=== PATIENT | male | born 1985 | race American Indian/Alaskan Native ===

== ENCOUNTER 2017-05-05 10:37 | Emergency (ER) | payer SELFPAY ==
--- NOTE | 2017-05-05 14:40 | Emergency Department Report ---
HPI - General Chief Complaint: Wound/Laceration Time Seen by Provider: 05/05/17 13:28 - HPI HPI: he is a 31-year-old male presents complaining of insect bite in his right ankle. He states he noticed part of his ankle was swollen and had some puslike discharge. Patient states he does not recall seeing insect or the blood that bit him.. Patient is able to walk appropriately with no problems. He denies fevers/chills/vomiting/abdominal pain chest pain or any other problems ". ED Past Medical Hx - Past Medical History Previous Medical History?: No - Surgical History Past Surgical History?: No - Social History Smoking Status: Current Every Day Smoker Substance Use Type: Alcohol - Medications Home Medications: Home Medications Medication Instructions Recorded Confirmed Last Taken Type Hydrocodone Bit/Acetaminophen 1 each PO Q6HR PRN #20 tablet 06/07/13 Unknown Rx [Lortab 5-500 Tablet] Cephalexin [Keflex] 500 mg PO BID #10 capsule 05/05/17 Unknown Rx Ibuprofen [Motrin 800 MG tab] 800 mg PO TID PRN #60 tablet 05/05/17 Unknown Rx Neomycin/Bacitracin/Polymyxinb 1 applic TP TID #1 tube 05/05/17 Unknown Rx [Triple Antibiotic Ointment] ED Review of Systems ROS: Stated complaint: RIGHT ANKLE SWOLLEN Other details as noted in HPI Constitutional: denies: chills, fever Eyes: denies: eye pain, eye discharge, vision change ENT: denies: ear pain, throat pain Respiratory: denies: cough, shortness of breath, wheezing Cardiovascular: denies: chest pain, palpitations Endocrine: no symptoms reported Gastrointestinal: denies: abdominal pain, nausea, diarrhea Genitourinary: denies: urgency, dysuria Musculoskeletal: denies: back pain, joint swelling, arthralgia Skin: pruritus. denies: rash, lesions Neurological: denies: headache, weakness, numbness, paresthesias, confusion Psychiatric: denies: anxiety, depression Hematological/Lymphatic: denies: easy bleeding, easy bruising Physical Exam - Physical Exam Vital Signs: Vital Signs 05/05/17 11:07 Temperature 97.7 F Pulse Rate 60 Respiratory 18 Rate Blood Pressure 107/74 O2 Sat by Pulse 97 Oximetry Physical Exam: GENERAL: Alert and oriented x3, no apparent distress, Normal Gait, atraumatic. HEAD: Head is normocephalic and a-traumatic. LUNGS: Symetrical with respiration, , CTAB. HEART: S1, S2 present, regular rate and rhythm without murmur, EXTREMITIES/MUSCULOSKELETAL: No cyanosis, clubbing, rash, lesions or edema. Full ROM bilaterally. LE Pulses 2+ bilaterally. LE 5+ strength bilaterally, ankle joints intact bilaterally. Medial aspect of the ankle showed 4-5 cm area of cellulitis with pus healing wound appearance consistent with some type of insect bite. Pedal pulses are present, full range of motion, nontender to palpation SKIN: Warm and dry, No other lesions, No ulceration or induration present. ED Course Vital Signs 05/05/17 11:07 Temperature 97.7 F Pulse Rate 60 Respiratory 18 Rate Blood Pressure 107/74 O2 Sat by Pulse 97 Oximetry ED Medical Decision Making - Medical Decision Making 31-year-old male presents with insect bite. Discussed with the patient to apply topical antibiotic cream as discussed. Discussed the patient is symptoms worsen to return to ED otherwise follow-up with her primary care physician Ankle looks nontoxic, nonseptic, has full radial movement. Vital signs are normal patient is in no acute distress. Critical care attestation.: If time is entered above; I have spent that time in minutes in the direct care of this critically ill patient, excluding procedure time. ED Disposition Clinical Impression: Insect bite of ankle, right Qualifiers: Encounter type: initial encounter Qualified Code(s): S90.561A - Insect bite ( nonvenomous), right ankle, initial encounter Disposition: DC- TO HOME OR SELFCARE Is pt being admited?: No Does the pt Need Aspirin: No Condition: Stable Instructions: Cellulitis (ED), Insect Bite or Sting (ED) Prescriptions: Cephalexin [Keflex] 500 mg PO BID #10 capsule Ibuprofen [Motrin 800 MG tab] 800 mg PO TID PRN #60 tablet PRN Reason: Pain Neomycin/Bacitracin/Polymyxinb [Triple Antibiotic Ointment] 1 applic TP TID #1 tube Referrals: PRIMARY CARE, [Primary Care Provider] - 3-5 Days [facility] [Outside] - 3-5 Days [facility] [place] [Outside] - 3-5 Days [facility] [Outside] - 3-5 Days Forms: Accompanied Note, Work/School Release Form(ED) Time of Disposition: 14:40
[2017-05-05 15:02] VITALS: BP 126/84
== END 2017-05-05 15:02 | disposition home or self-care (01) ==
LOC: ED 10:37
DX: S90.561A Insect bite (nonvenomous), right ankle, initial encounter (principal); F17.200 Nicotine dependence, unspecified, uncomplicated; W57.XXXA Bitten or stung by nonvenomous insect and other nonvenomous arthropods, initial encounter; Y93.89 Activity, other specified; Y92.89 Other specified places as the place of occurrence of the external cause; Y99.8 Other external cause status
CPT/HCPCS: 99282

== ENCOUNTER 2018-09-03 18:56 | Inpatient (IN) | payer MEDICARE, OTHER ==
[2018-09-03] MEDS ORDERED: NACL 0.9% 1000 ML IV ONE (19:34)
--- NOTE | 2018-09-03 19:34 | Emergency Department Report ---
Blank Doc - Documentation Documentation: This is a 32-year-old male that presents with URI symptoms. Stated has history of PNA 2 weeks ago. Stated symptoms has subsided but not resolved. Tachycardia and Febrile in the ED. Code sepsis initiated. This initial assessment/diagnostic orders/clinical plan/treatment(s) is/are subject to change based on patient's health status, clinical progression and re- assessment by fellow clinical providers in the ED. Further treatment and workup at subsequent clinical providers discretion. Patient/guardians urged not to elope from the ED as their condition may be serious if not clinically assessed and managed. Initial orders include: 1- Patient sent to MAIN ED for further evaluation and treatment 2- labs 3- cxr
[2018-09-03 20:33] LABS: Mean Corpuscular HGB Conc 36 % (32-34); Mean Corpuscular Volume 85 fl (84-94); Red Blood Count 4.91 M/mm3 (3.65-5.03); Red Cell Distribution Width 13.2 % (13.2-15.2)
[2018-09-03 20:34] LABS: Hemoglobin 15.1 gm/dl (11.8-15.2)
[2018-09-03 20:35] LABS: Hematocrit 41.6 % (35.5-45.6)
[2018-09-03 20:38] LABS: Alanine Aminotransferase 74 units/L (7-56); Albumin 3.4 g/dL (3.9-5); BUN/Creatinine Ratio 13; Blood Urea Nitrogen 14 mg/dL (9-20); Calcium 8.5 mg/dL (8.4-10.2); Hemolysis Index 74
[2018-09-03 21:18] LABS: Basophils % (Manual) 0 % (0.0-1.8); Eosinophils % (Manual) 0 % (0.0-4.3); Total Cells Counted 100
[2018-09-03 21:19] LABS: Anisocytosis 1+; Platelet Estimate Appears Decreased; Poikilocytosis 1+; Target Cells Few
[2018-09-03 21:28] LABS: Platelet Count 79 K/mm3 (140-440)
[2018-09-03] MEDS ORDERED: LEVAQUIN 750MG/150ML 750 MG/150 ML BAG IV ONE (21:41)
[2018-09-03] MEDS ORDERED: NACL 0.9% 1000 ML 2,000 ML IV ONE (21:41)
[2018-09-03] MEDS ORDERED: TYLENOL PO ONE (21:41)
--- NOTE | 2018-09-03 21:44 | Emergency Department Report ---
ED General Adult HPI - General Chief complaint: Upper Respiratory Infection Stated complaint: CHEST PAIN/FLU LIKE SYM/VOMIT Time Seen by Provider: 09/03/18 19:31 Source: patient, RN notes reviewed Mode of arrival: Ambulatory Limitations: No Limitations - History of Present Illness Initial comments: He does not have a primary care doctor and denies chronic medical conditions that he is aware of. Contrary to what is documented in triage note, patient was not hospitalized at [facility] 2 weeks ago, but rather presented for cough and fever, and was presumptively diagnosed with community-acquired pneumonia, and reports being discharged with an antibiotic that started with a "B". He thinks it is Bactrim but he is not certain. He reports compliance with antibiotics, but still complains of cough, malaise, fatigue, and generalized weakness. He does not have pain at this time. He reports no chest pain for over 2 weeks. He denies DVT, pulmonary embolus risk factors. On review of systems, the patient does indicate that he has had male partners in the past, but reports using condoms, and reports being tested for HIV a few weeks ago. He denies headache, neck pain, chest pain, abdominal pain, urinary symptoms, he does endorse cough and he endorses some generalized weakness. Intermittent symptoms, do not radiate anywhere, and there do not appear to have exacerbating or relieving factors -: Gradual, week(s) Severity scale (0 -10): 4 Consistency: intermittent Improves with: none Worsens with: none Associated Symptoms: cough, fever/chills, malaise, weakness - Related Data Previous Rx's Medication Instructions Recorded Last Taken Type Hydrocodone Bit/Acetaminophen 1 each PO Q6HR PRN #20 tablet 06/07/13 Unknown Rx [Lortab 5-500 Tablet] Cephalexin [Keflex] 500 mg PO BID #10 capsule 05/05/17 Unknown Rx Ibuprofen [Motrin 800 MG tab] 800 mg PO TID PRN #60 tablet 05/05/17 Unknown Rx Neomycin/Bacitracin/Polymyxinb 1 applic TP TID #1 tube 05/05/17 Unknown Rx [Triple Antibiotic Ointment] Allergies Allergy/AdvReac Type Severity Reaction Status Date / Time No Known Allergies Allergy Unverified 06/07/13 12:19 ED Review of Systems ROS: Stated complaint: CHEST PAIN/FLU LIKE SYM/VOMIT Other details as noted in HPI Constitutional: fever, malaise, weakness. denies: chills ENT: congestion Respiratory: cough Cardiovascular: denies: chest pain Gastrointestinal: denies: abdominal pain, nausea, vomiting Genitourinary: denies: urgency, dysuria Musculoskeletal: arthralgia Skin: denies: lesions Neurological: weakness Psychiatric: denies: anxiety ED Past Medical Hx - Past Medical History Previous Medical History?: Yes Additional medical history: Pneumonia - Surgical History Past Surgical History?: No - Social History Smoking Status: Former Smoker Substance Use Type: None - Medications Home Medications: Home Medications Medication Instructions Recorded Confirmed Last Taken Type Hydrocodone Bit/Acetaminophen 1 each PO Q6HR PRN #20 tablet 06/07/13 Unknown Rx [Lortab 5-500 Tablet] Cephalexin [Keflex] 500 mg PO BID #10 capsule 05/05/17 Unknown Rx Ibuprofen [Motrin 800 MG tab] 800 mg PO TID PRN #60 tablet 05/05/17 Unknown Rx Neomycin/Bacitracin/Polymyxinb 1 applic TP TID #1 tube 05/05/17 Unknown Rx [Triple Antibiotic Ointment] ED Physical Exam - General Limitations: No Limitations General appearance: alert, in no apparent distress - Head Head exam: Present: atraumatic, normocephalic - Eye Eye exam: Present: normal appearance, PERRL, EOMI. Absent: nystagmus - ENT ENT exam: Present: mucous membranes dry, normal external ear exam, other (leukoplakia, questionable thrush noted) - Neck Neck exam: Present: normal inspection, full ROM. Absent: tenderness, meningism us - Respiratory Respiratory exam: Present: rhonchi. Absent: respiratory distress - Cardiovascular Cardiovascular Exam: Present: regular rate, normal rhythm, normal heart sounds. Absent: bradycardia, tachycardia, irregular rhythm, systolic murmur, diastolic murmur, rubs, gallop - GI/Abdominal GI/Abdominal exam: Present: soft. Absent: distended, tenderness, guarding, rebound, rigid, pulsatile mass - Rectal Rectal exam: Present: deferred - Extremities Exam Extremities exam: Present: normal inspection, full ROM, other (2+ pulses noted in the bilateral upper, lower extremities. Compartments soft. No long bony tenderness. The pelvis is stable.). Absent: pedal edema, joint swelling, calf tenderness - Back Exam Back exam: Present: normal inspection, full ROM. Absent: tenderness, CVA tenderness (R), paraspinal tenderness, vertebral tenderness - Neurological Exam Neurological exam: Present: alert, oriented X3, CN II-XII intact, normal gait, other (Extraocular movements intact. Tongue midline. No facial droop. Facial sensation intact to light touch in the V1, V2, V3 distribution bilaterally. 5 and 5 strength in 4 extremities.. Sensation is intact to light touch in 4 extremities.). Absent: motor sensory deficit - Psychiatric Psychiatric exam: Present: normal affect, normal mood - Skin Skin exam: Present: warm, dry, intact, normal color. Absent: rash ED Course Vital Signs 09/03/18 09/03/18 09/03/18 19:08 19:30 22:00 Temperature 103 F H 103 F H Pulse Rate 97 H 92 H 80 Respiratory 16 16 23 Rate Blood Pressure 98/63 111/63 Blood Pressure 98/63 [Left] O2 Sat by Pulse 95 96 94 Oximetry 09/03/18 22:16 Temperature 102.8 F H Pulse Rate 91 H Respiratory 22 Rate Blood Pressure Blood Pressure 111/63 [Left] O2 Sat by Pulse 96 Oximetry - Reevaluation(s) Reevaluation #1: 09/03/18 22:24 Differential diagnosis, including but not limited to: Viremia, bacteremia, hepatitis, Legionella, acute HIV syndrome Assessment and plan: 32-year-old gentleman with acute febrile illness, hypon atremia, leukopenia, thrombocytopenia, nonspecific transaminitis, elevated lactic acid, borderline hypotension. Patient is febrile, although blood pressure is improving. I have strongly recommended admission to the hospital for monitoring, correction of sodium derangements, and further diagnostic workup/evaluation. The patient indicates that he is amenable to screening for HIV, syphilis, and he is also amenable to IV fluids and IV broad-spectrum antibiotics. The patient however indicates that he does not intend to stay overnight, and he indicates that he will sign out AGAINST MEDICAL ADVICE. The patient is alert and oriented 3, clinically sober, and free from distracting injury. Risks of leaving, including , disability, paralysis, loss of quality of life are discussed with the patient, who verbalized understanding in his own words. However, his workup in the ER resuscitation are still going on currently. Reevaluation #2: 09/03/18 23:36 I have reevaluated the patient. His laboratory studies are reviewed and appreciated. Patient reports he is amenable to hospitalization at this time. Blood pressure improved. HIV screen negative. Hepatitis C screen is reactive, although confirmatory test has not been sent thus far. The case is presented to the Hospital physician, Dr. Beasley, who accepted the patient to the Medical service. Patient has acute febrile illness, undifferentiated sepsis, with multiple laboratory abnormalities, including thrombocytopenia, leukopenia, transaminitis, hyponatremia, and requires further inpatient evaluation. ED Medical Decision Making - Lab Data Result diagrams: 09/03/18 19:44 09/03/18 19:44 Vital Signs 09/03/18 09/03/18 09/03/18 19:08 19:30 22:16 Temperature 103 F H 103 F H 102.8 F H Pulse Rate 97 H 92 H 91 H Respiratory 16 16 22 Rate Blood Pressure 98/63 Blood Pressure 98/63 111/63 [Left] O2 Sat by Pulse 95 96 96 Oximetry Lab Results 09/03/18 09/03/18 09/03/18 Range/Units 19:44 19:44 19:44 WBC 3.7 L (4.5-11.0) K/mm3 RBC 4.91 (3.65-5.03) M/mm3 Hgb 15.1 (11.8-15.2) gm/dl Hct 41.6 (35.5-45.6) % MCV 85 (84-94) fl MCH 31 (28-32) pg MCHC 36 H (32-34) % RDW 13.2 (13.2-15.2) % Plt Count 79 L (140-440) K/mm3 Lymph % (Auto) [employer] Add Manual Diff Complete Total Counted 100 Seg Neutrophils % [employer] Seg Neuts % (Manual) 51.0 (40.0-70.0) % Band Neutrophils % 0 % Lymphocytes % (Manual) 41.0 H (13.4-35.0) % Reactive Lymphs % (Man) 0 % Monocytes % (Manual) 8.0 H (0.0-7.3) % Eosinophils % (Manual) 0 (0.0-4.3) % Basophils % (Manual) 0 (0.0-1.8) % Metamyelocytes % 0 % Myelocytes % 0 % Promyelocytes % 0 % Blast Cells % 0 % Nucleated RBC % Not Reportable Seg Neutrophils # Man 1.9 (1.8-7.7) K/mm3 Band Neutrophils # 0.0 K/mm3 Lymphocytes # (Manual) 1.5 (1.2-5.4) K/mm3 Abs React Lymphs (Man) 0.0 K/mm3 Monocytes # (Manual) 0.3 (0.0-0.8) K/mm3 Eosinophils # (Manual) 0.0 (0.0-0.4) K/mm3 Basophils # (Manual) 0.0 (0.0-0.1) K/mm3 Metamyelocytes # 0.0 K/mm3 Myelocytes # 0.0 K/mm3 Promyelocytes # 0.0 K/mm3 Blast Cells # 0.0 K/mm3 WBC Morphology Not Reportable Hypersegmented Neuts Not Reportable Hyposegmented Neuts Not Reportable Hypogranular Neuts Not Reportable Smudge Cells Not Reportable Toxic Granulation Not Reportable Toxic Vacuolation Not Reportable Dohle Bodies Not Reportable Pelger-Huet Anomaly Not Reportable Rain Rods Not Reportable Platelet Estimate Appears decreased Clumped Platelets Not Reportable Plt Clumps, EDTA Not Reportable Large Platelets Not Reportable Giant Platelets Not Reportable Platelet Satelliting Not Reportable Plt Morphology Comment Not Reportable RBC Morphology Not Reportable Dimorphic RBCs Not Reportable Polychromasia Not Reportable Hypochromasia Not Reportable Poikilocytosis 1+ Anisocytosis 1+ Microcytosis Rare Macrocytosis Not Reportable Spherocytes Not Reportable Pappenheimer Bodies Not Reportable Sickle Cells Not Reportable Target Cells Few Tear Drop Cells Not Reportable Ovalocytes Not Reportable Helmet Cells Not Reportable [place] Bodies Not Reportable [place] Rings Not Reportable [place] Cells Not Reportable Bite Cells Not Reportable Crenated Cell Not Reportable Elliptocytes Not Reportable Acanthocytes (Spur) Not Reportable Rouleaux Not Reportable Hemoglobin C Crystals Not Reportable Schistocytes Not Reportable Malaria parasites Not Reportable Cain Bodies Not Reportable Hem Pathologist Commnt No Sodium 123 L (137-145) mmol/L Potassium 4.5 (3.6-5.0) mmol/L Chloride 83.9 L (98-107) mmol/L Carbon Dioxide 25 (22-30) mmol/L Anion Gap 19 mmol/L BUN 14 (9-20) mg/dL Creatinine 1.1 (0.8-1.5) mg/dL Estimated GFR > 60 ml/min BUN/Creatinine Ratio 13 % Glucose 104 H (75-100) mg/dL Lactic Acid 3.20 H* (0.7-2.0) mmol/L Calcium 8.5 (8.4-10.2) mg/dL Total Bilirubin 0.40 (0.1-1.2) mg/dL AST 219 H (5-40) units/L ALT 74 H (7-56) units/L Alkaline Phosphatase 67 (35-129) units/L Total Protein 6.9 (6.3-8.2) g/dL Albumin 3.4 L (3.9-5) g/dL Albumin/Globulin Ratio 1.0 % Urine Color (Yellow) Urine Turbidity (Clear) Urine pH (5.0-7.0) Ur Specific [place] (1.003-1.030) Urine Protein (Negative) mg/dL Urine Glucose (UA) (Negative) mg/dL Urine Ketones (Negative) mg/dL Urine Blood (Negative) Urine Nitrite (Negative) Urine Bilirubin (Negative) Urine Urobilinogen (<2.0) mg/dL Ur Leukocyte Esterase (Negative) Urine WBC (Auto) (0.0-6.0) /HPF Urine RBC (Auto) (0.0-6.0) /HPF Urine Mucus /HPF HIV 1&2 Antibody Rapid (Non React) HIV P24 Antigen (Non React) 09/03/18 09/03/18 09/03/18 Range/Units 20:57 21:46 21:51 WBC (4.5-11.0) K/mm3 RBC (3.65-5.03) M/mm3 Hgb (11.8-15.2) gm/dl Hct (35.5-45.6) % MCV (84-94) fl MCH (28-32) pg MCHC (32-34) % RDW (13.2-15.2) % Plt Count (140-440) K/mm3 Lymph % (Auto) Add Manual Diff Total Counted Seg Neutrophils % Seg Neuts % (Manual) (40.0-70.0) % Band Neutrophils % % Lymphocytes % (Manual) (13.4-35.0) % Reactive Lymphs % (Man) % Monocytes % (Manual) (0.0-7.3) % Eosinophils % (Manual) (0.0-4.3) % Basophils % (Manual) (0.0-1.8) % Metamyelocytes % % Myelocytes % % Promyelocytes % % Blast Cells % % Nucleated RBC % Seg Neutrophils # Man (1.8-7.7) K/mm3 Band Neutrophils # K/mm3 Lymphocytes # (Manual) (1.2-5.4) K/mm3 Abs React Lymphs (Man) K/mm3 Monocytes # (Manual) (0.0-0.8) K/mm3 Eosinophils # (Manual) (0.0-0.4) K/mm3 Basophils # (Manual) (0.0-0.1) K/mm3 Metamyelocytes # K/mm3 Myelocytes # K/mm3 Promyelocytes # K/mm3 Blast Cells # K/mm3 WBC Morphology Hypersegmented Neuts Hyposegmented Neuts Hypogranular Neuts Smudge Cells Toxic Granulation Toxic Vacuolation Dohle Bodies Pelger-Huet Anomaly Rain Rods Platelet Estimate Clumped Platelets Plt Clumps, EDTA Large Platelets Giant Platelets Platelet Satelliting Plt Morphology Comment RBC Morphology Dimorphic RBCs Polychromasia Hypochromasia Poikilocytosis Anisocytosis Microcytosis Macrocytosis Spherocytes Pappenheimer Bodies Sickle Cells Target Cells Tear Drop Cells Ovalocytes Helmet Cells [place] Bodies [place] Rings [place] Cells Bite Cells Crenated Cell Elliptocytes Acanthocytes (Spur) Rouleaux Hemoglobin C Crystals Schistocytes Malaria parasites Cain Bodies Hem Pathologist Commnt Sodium (137-145) mmol/L Potassium (3.6-5.0) mmol/L Chloride (98-107) mmol/L Carbon Dioxide (22-30) mmol/L Anion Gap mmol/L BUN (9-20) mg/dL Creatinine (0.8-1.5) mg/dL Estimated GFR ml/min BUN/Creatinine Ratio % Glucose (75-100) mg/dL Lactic Acid 3.50 H* (0.7-2.0) mmol/L Calcium (8.4-10.2) mg/dL Total Bilirubin (0.1-1.2) mg/dL AST (5-40) units/L ALT (7-56) units/L Alkaline Phosphatase (35-129) units/L Total Protein (6.3-8.2) g/dL Albumin (3.9-5) g/dL Albumin/Globulin Ratio % Urine Color Marlene (Yellow) Urine Turbidity Clear (Clear) Urine pH 6.0 (5.0-7.0) Ur Specific [place] 1.029 (1.003-1.030) Urine Protein >500 (Negative) mg/dL Urine Glucose (UA) Neg (Negative) mg/dL Urine Ketones Neg (Negative) mg/dL Urine Blood Mod (Negative) Urine Nitrite Neg (Negative) Urine Bilirubin Neg (Negative) Urine Urobilinogen < 2.0 (<2.0) mg/dL Ur Leukocyte Esterase Neg (Negative) Urine WBC (Auto) 4.0 (0.0-6.0) /HPF Urine RBC (Auto) < 1.0 (0.0-6.0) /HPF Urine Mucus Few /HPF HIV 1&2 Antibody Rapid Non react (Non React) HIV P24 Antigen Non react (Non React) Critical care attestation.: If time is entered above; I have spent that time in minutes in the direct care of this critically ill patient, excluding procedure time. ED Disposition Clinical Impression: Systemic inflammatory response syndrome (SIRS), Hyponatremia, Leukopenia, Thrombocytopenia, Transaminitis Disposition: 09 OP ADMIT IP TO THIS HOSP Is pt being admited?: Yes Condition: Good Referrals: COLLIN VILLAR MD [Primary Care Provider] - 3-5 Days
[2018-09-03 22:10] LABS: Bilirubin,Urine NEG (Negative); Blood,Urine MOD (Negative); Color,Urine Amber (Yellow); Mucus,Urine FEW /HPF; RBC,Urine < 1.0 /HPF (0.0-6.0); Urobilinogen,Urine < 2.0 mg/dL (<2.0)
[2018-09-03 22:14] LABS: Protein,Urine >500 mg/dL (Negative)
--- NOTE | 2018-09-03 22:21 | XRay Report ---
PROCEDURE: XR CHEST 1V AP TECHNIQUE: Chest radiograph single view. HISTORY: sepsis COMPARISONS: None . FINDINGS: Heart: Normal. Mediastinum/Vessels: Normal. Lungs/Pleural space: There are linear densities at the left lung base suggesting atelectasis or fibr osis. There are no acute infiltrates. There is no pleural effusion or pneumothorax.. Bony thorax: No acute osseous abnormality. Life support devices: None. IMPRESSION: No acute cardiopulmonary abnormality. This document is electronically signed by Jairon Mcfadden MD., September 03 2018 10:19:54 PM ET
[2018-09-03 22:32] LABS: Hepatitis B Surface Antigen Non-Reactive (Negative); Hepatitis C Virus Antibody Reactive (NonReactive)
--- NOTE | 2018-09-03 23:49 | History and Physical Report ---
History of Present Illness Date of examination: 09/03/18 History of present illness: 32 year old man with no medical history comes emergency room with complaints of chest pain that started 2 weeks ago. Pain is in the epigastric area which she described as someone standing on his chest, intermittent, unclear how long it lasts for, intensity 4/10, no radiation,, identify exacerbating or relieving factors, admits to fever chills, dry cough. He was seen at [facility] 2 weeks ago, diagnosed with pneumonia and took antibiotics for 10 days, he cannot recall the name of the antibiotic. He stated his symptoms improved slightly. Admits to decreased appetite, no weight loss, hemoptysis. He has a history of syphilis, state he was treated, +male partners, denies unprotected sex Review of systems Constitutional: no weight loss Ears, eyes, nose, mouth and throat: no nasal congestion, no nasal discharge, no sinus pressure, no vision change, no red eye. Neck: No neck pain or rigidity. Cardiovascular: no palpitations, +chest pain Respiratory: no cough, shortness of breath Gastrointestinal: no hematochezia, abdominal pain Genitourinary : no frequency , no hematuria Musculoskeletal: no joint swelling or muscle ache Integumentary: no rash, no pruritis Neurological: no parathesias, no focal weakness Endocrine: no cold or heat intolerance, no polyuria or polydipsia Hematologic/Lymphatic: no easy bruising, no easy bleeding, no gland swelling Allergic/Immunologic: no urticaria, no angioedema. PAST MEDICAL HISTORY: None PAST SURGICAL HISTORY: None SOCIAL HISTORY: Denies alcohol, drugs, tobacco FAMILY HISTORY: Hypertension Medications and Allergies Allergies Allergy/AdvReac Type Severity Reaction Status Date / Time No Known Allergies Allergy Unverified 06/07/13 12:19 Home Medications Medication Instructions Recorded Confirmed Last Taken Type Multivitamin Tab [Multiple Vitamin 1 each PO QDAY #30 tablet 09/16/18 Unknown Rx TAB (Theragran)] Sulfamethoxazole/Trimethoprim 1 each PO QDAY 30 Days #30 tablet 09/16/18 Unknown Rx [Bactrim DS TAB] Sulfamethoxazole/Trimethoprim 2 each PO TID 15 Days #90 tablet 09/16/18 Unknown Rx [Bactrim DS TAB] diphenhydrAMINE [Benadryl CAP] 25 mg PO Q6H PRN #60 capsule 09/16/18 Unknown Rx Exam - Physical Exam Narrative exam: General Apperance: The patient lying in bed, breathing comfortable HEENT: Normocephalic, atraumatic. Pupils equally round and reactive to light, EOMI, no sclericterus or JVD or thyromegaly or nodule. , no carotid bruit, mucous membranes moist, + exudate, no erythema Heart: S1-S2, regular is rhythm Lungs: Clear to auscultation bilaterally, breathing comfortable Abdomen: Positive bowel sounds, soft, nontender, nondistended, no organomegaly Extremities: No edema cyanosis clubbing Skin: no rash, nodule, warm and dry Neuro: cranial nerves 2-12 intact, speech is fluent, motor/sensory intact - Constitutional Vitals: Temp Pulse Resp BP Pulse Ox 100.2 F H 81 30 H 106/62 95 09/03/18 23:46 09/03/18 23:00 09/03/18 23:00 09/03/18 23:00 09/03/18 23:00 Results - Labs CBC & Chem 7: 09/16/18 00:29 09/16/18 10:01 Labs: Abnormal lab results 09/03/18 09/03/18 09/03/18 Range/Units 19:44 19:44 19:44 WBC 3.7 L (4.5-11.0) K/mm3 MCHC 36 H (32-34) % Plt Count 79 L (140-440) K/mm3 Lymphocytes % (Manual) 41.0 H (13.4-35.0) % Monocytes % (Manual) 8.0 H (0.0-7.3) % Sodium 123 L (137-145) mmol/L Chloride 83.9 L (98-107) mmol/L Glucose 104 H (75-100) mg/dL Lactic Acid 3.20 H* (0.7-2.0) mmol/L AST 219 H (5-40) units/L ALT 74 H (7-56) units/L Albumin 3.4 L (3.9-5) g/dL Hepatitis C Antibody (NonReactive) 09/03/18 09/03/18 Range/Units 20:57 21:46 WBC (4.5-11.0) K/mm3 MCHC (32-34) % Plt Count (140-440) K/mm3 Lymphocytes % (Manual) (13.4-35.0) % Monocytes % (Manual) (0.0-7.3) % Sodium (137-145) mmol/L Chloride (98-107) mmol/L Glucose (75-100) mg/dL Lactic Acid 3.50 H* (0.7-2.0) mmol/L AST (5-40) units/L ALT (7-56) units/L Albumin (3.9-5) g/dL Hepatitis C Antibody Reactive A (NonReactive) - Imaging and Cardiology Chest x-ray: report reviewed Assessment and Plan Assessment SIRS, suspect early HIV Chest pain Leukoplakia Leukopenia, thrombocytopenia hyponatremia Plan Start IV fluids, empiric Zosyn, fluconazole Obtain CAT scan of the chest, cardiac enzymes Consult infectious disease patient will need to have his HIV test repeated at a later date DVT prophylaxis
[2018-09-04] MEDS ORDERED: PERCOCET 5/325 PO PRN (00:10)
[2018-09-04] MEDS ORDERED: SODIUM CHLORIDE FLUSH SYRINGE 10 ML IV PRN (00:10)
[2018-09-04] MEDS ORDERED: DIFLUCAN PO ONE (00:29)
--- NOTE | 2018-09-04 02:25 | Cat Scan Report ---
PROCEDURE: CT ANGIO CHEST TECHNIQUE: Computerized tomographic angiography of the chest was performed after the IV injection of iodinated nonionic contrast including image processing. Images are reconstructed in the sagittal and coronal plane HISTORY: Chest pain COMPARISONS: None FINDINGS: There is no evidence of PE. The pulmonary arteries opacify normally. The heart appears normal. The thoracic aorta is nonaneurysmal and there is no evidence of dissection. There is mild bibasilar subsegmental atelectasis greater on the left than the right. Otherwise, The l ungs are clear. There is no evidence of pleural effusion. The bones are unremarkable. Images through the upper abdomen show diffuse fatty infiltration of the liver. The liver was not comp letely scanned. IMPRESSION: 1. No evidence of PE 2. Bibasilar subsegmental atelectasis greater on the left than the right 3. Diffuse fatty infiltration of the liver. The liver was not completely scanned. This document is electronically signed by Venita Tucker MD., September 04 2018 02:22:53 AM ET
[2018-09-04] MEDS: TYLENOL PO PRN ×2 (05:49→12:35)
[2018-09-04] MEDS: NACL 0.9% 1000 ML 1,000 ML IV SCH ×3 (05:50→18:56)
[2018-09-04] MEDS: DIFLUCAN PO SCH (09:50)
--- NOTE | 2018-09-04 09:52 | Progress Note ---
Assessment and Plan Assessment and plan: 32-year-old man who presents to the hospital with fever. He was treated at [facility] 2 weeks ago for community acquired pneumonia and was treated with antibiotics, the patient reports compliance of those antibiotics CT amgio chest; no evidence of PE diffuse fatty infiltration of the liver Labs, UA is negative for UTI, hepatitis serology is only positive for positive hep C antibody, rapid HIV is negative, rapid influenza is negative Diagnoses Fever Transaminitis Severe hyponatremia SIRS Hep C Hypochloremia Leukopenia thrombocytopenia acute HIV viral syndrome Tobacco abuse Plan - ID consult is pending, hold abx for now -Obtain HIV RNA quantitative, and also obtain CD4 counts -Obtain hep C viral RNA, quantitative -Hypotonic IVF, Nephrology consult, hyponatremia/hypochloremia likely due to hypovolemia -Patient was counseled greater than 10 minutes about tobacco cessation -DVT ppx- chemical History Interval history: Review of systems Constitutional: Patient is having high fevers and malaise CVS: No chest pain, no orthopnea, no dyspnea on exertion, no pedal edema GI: No abdominal pain, no diarrhea, no vomiting, no constipation Respiratory: No shortness of breath, no wheezing, no coughing Hospitalist Physical - Physical exam Narrative exam: General.: Appears well, no distress, nontoxic HEENT: Moist mucous membranes, extraocular muscles intact, no lymphadenopathy Neck: supple Cardiac: S1-S2 heard Lungs: clear to auscultation bilaterally Abdomen: soft , nontender, nondistended, bowel sounds positive Extremities: no edema clubbing or cyanosis Skin: no rash or lesions Neurologic: no gross focal deficits Psych: calm, and cooperative - Constitutional Vitals: Temp Pulse Resp BP Pulse Ox 101.9 F H 82 24 114/69 94 09/04/18 04:55 09/04/18 04:55 09/04/18 04:55 09/04/18 01:33 09/04/18 09:17 Results - Labs CBC & Chem 7: 09/04/18 09:56 09/04/18 09:56 Labs: Laboratory Last Values WBC 3.7 K/mm3 (4.5-11.0) L 09/03/18 19:44 RBC 4.91 M/mm3 (3.65-5.03) 09/03/18 19:44 Hgb 15.1 gm/dl (11.8-15.2) 09/03/18 19:44 Hct 41.6 % (35.5-45.6) 09/03/18 19:44 MCV 85 fl (84-94) 09/03/18 19:44 MCH 31 pg (28-32) 09/03/18 19:44 MCHC 36 % (32-34) H 09/03/18 19:44 RDW 13.2 % (13.2-15.2) 09/03/18 19:44 Plt Count 79 K/mm3 (140-440) L 09/03/18 19:44 Lymph % (Auto) [employer] 09/03/18 19:44 Add Manual Diff Complete 09/03/18 19:44 Total Counted 100 09/03/18 19:44 Seg Neutrophils % Liv[employer] Att[employer] 09/03/18 19:44 Seg Neuts % (Manual) 51.0 % (40.0-70.0) 09/03/18 19:44 Band Neutrophils % 0 % 09/03/18 19:44 Lymphocytes % (Manual) 41.0 % (13.4-35.0) H 09/03/18 19:44 Reactive Lymphs % (Man) 0 % 09/03/18 19:44 Monocytes % (Manual) 8.0 % (0.0-7.3) H 09/03/18 19:44 Eosinophils % (Manual) 0 % (0.0-4.3) 09/03/18 19:44 Basophils % (Manual) 0 % (0.0-1.8) 09/03/18 19:44 Metamyelocytes % 0 % 09/03/18 19:44 Myelocytes % 0 % 09/03/18 19:44 Promyelocytes % 0 % 09/03/18 19:44 Blast Cells % 0 % 09/03/18 19:44 Nucleated RBC % Not Reportable 09/03/18 19:44 Seg Neutrophils # Man 1.9 K/mm3 (1.8-7.7) 09/03/18 19:44 Band Neutrophils # 0.0 K/mm3 09/03/18 19:44 Lymphocytes # (Manual) 1.5 K/mm3 (1.2-5.4) 09/03/18 19:44 Abs React Lymphs (Man) 0.0 K/mm3 09/03/18 19:44 Monocytes # (Manual) 0.3 K/mm3 (0.0-0.8) 09/03/18 19:44 Eosinophils # (Manual) 0.0 K/mm3 (0.0-0.4) 09/03/18 19:44 Basophils # (Manual) 0.0 K/mm3 (0.0-0.1) 09/03/18 19:44 Metamyelocytes # 0.0 K/mm3 09/03/18 19:44 Myelocytes # 0.0 K/mm3 09/03/18 19:44 Promyelocytes # 0.0 K/mm3 09/03/18 19:44 Blast Cells # 0.0 K/mm3 09/03/18 19:44 WBC Morphology Not Reportable 09/03/18 19:44 Hypersegmented Neuts Not Reportable 09/03/18 19:44 Hyposegmented Neuts Not Reportable 09/03/18 19:44 Hypogranular Neuts Not Reportable 09/03/18 19:44 Smudge Cells Not Reportable 09/03/18 19:44 Toxic Granulation Not Reportable 09/03/18 19:44 Toxic Vacuolation Not Reportable 09/03/18 19:44 Dohle Bodies Not Reportable 09/03/18 19:44 Pelger-Huet Anomaly Not Reportable 09/03/18 19:44 Rain Rods Not Reportable 09/03/18 19:44 Platelet Estimate Appears decreased 09/03/18 19:44 Clumped Platelets Not Reportable 09/03/18 19:44 Plt Clumps, EDTA Not Reportable 09/03/18 19:44 Large Platelets Not Reportable 09/03/18 19:44 Giant Platelets Not Reportable 09/03/18 19:44 Platelet Satelliting Not Reportable 09/03/18 19:44 Plt Morphology Comment Not Reportable 09/03/18 19:44 RBC Morphology Not Reportable 09/03/18 19:44 Dimorphic RBCs Not Reportable 09/03/18 19:44 Polychromasia Not Reportable 09/03/18 19:44 Hypochromasia Not Reportable 09/03/18 19:44 Poikilocytosis 1+ 09/03/18 19:44 Anisocytosis 1+ 09/03/18 19:44 Microcytosis Rare 09/03/18 19:44 Macrocytosis Not Reportable 09/03/18 19:44 Spherocytes Not Reportable 09/03/18 19:44 Pappenheimer Bodies Not Reportable 09/03/18 19:44 Sickle Cells Not Reportable 09/03/18 19:44 Target Cells Few 09/03/18 19:44 Tear Drop Cells Not Reportable 09/03/18 19:44 Ovalocytes Not Reportable 09/03/18 19:44 Helmet Cells Not Reportable 09/03/18 19:44 Montero-Munising Bodies Not Reportable 09/03/18 19:44 Katy Rings Not Reportable 09/03/18 19:44 [place] Cells Not Reportable 09/03/18 19:44 Bite Cells Not Reportable 09/03/18 19:44 Crenated Cell Not Reportable 09/03/18 19:44 Elliptocytes Not Reportable 09/03/18 19:44 Acanthocytes (Spur) Not Reportable 09/03/18 19:44 Rouleaux Not Reportable 09/03/18 19:44 Hemoglobin C Crystals Not Reportable 09/03/18 19:44 Schistocytes Not Reportable 09/03/18 19:44 Malaria parasites Not Reportable 09/03/18 19:44 Cain Bodies Not Reportable 09/03/18 19:44 Hem Pathologist Commnt No 09/03/18 19:44 Sodium 123 mmol/L (137-145) L 09/03/18 19:44 Potassium 4.5 mmol/L (3.6-5.0) 09/03/18 19:44 Chloride 83.9 mmol/L (98-107) L 09/03/18 19:44 Carbon Dioxide 25 mmol/L (22-30) 09/03/18 19:44 Anion Gap 19 mmol/L 09/03/18 19:44 BUN 14 mg/dL (9-20) 09/03/18 19:44 Creatinine 1.1 mg/dL (0.8-1.5) 09/03/18 19:44 Estimated GFR > 60 ml/min 09/03/18 19:44 BUN/Creatinine Ratio 13 % 09/03/18 19:44 Glucose 104 mg/dL (75-100) H 09/03/18 19:44 Lactic Acid 1.10 mmol/L (0.7-2.0) 09/03/18 22:51 Calcium 8.5 mg/dL (8.4-10.2) 09/03/18 19:44 Total Bilirubin 0.40 mg/dL (0.1-1.2) 09/03/18 19:44 AST 219 units/L (5-40) H 09/03/18 19:44 ALT 74 units/L (7-56) H 09/03/18 19:44 Alkaline Phosphatase 67 units/L (35-129) 09/03/18 19:44 Total Protein 6.9 g/dL (6.3-8.2) 09/03/18 19:44 Albumin 3.4 g/dL (3.9-5) L 09/03/18 19:44 Albumin/Globulin Ratio 1.0 % 09/03/18 19:44 Urine Color Marlene (Yellow) 09/03/18 21:51 Urine Turbidity Clear (Clear) 09/03/18 21:51 Urine pH 6.0 (5.0-7.0) 09/03/18 21:51 Ur Specific [place] 1.029 (1.003-1.030) 09/03/18 21:51 Urine Protein >500 mg/dL (Negative) 09/03/18 21:51 Urine Glucose (UA) Neg mg/dL (Negative) 09/03/18 21:51 Urine Ketones Neg mg/dL (Negative) 09/03/18 21:51 Urine Blood Mod (Negative) 09/03/18 21:51 Urine Nitrite Neg (Negative) 09/03/18 21:51 Urine Bilirubin Neg (Negative) 09/03/18 21:51 Urine Urobilinogen < 2.0 mg/dL (<2.0) 09/03/18 21:51 Ur Leukocyte Esterase Neg (Negative) 09/03/18 21:51 Urine WBC (Auto) 4.0 /HPF (0.0-6.0) 09/03/18 21:51 Urine RBC (Auto) < 1.0 /HPF (0.0-6.0) 09/03/18 21:51 Urine Mucus Few /HPF 09/03/18 21:51 Hepatitis A IgM Ab Non-reactive (NonReactive) 09/03/18 21:46 Hep Bs Antigen Non-reactive (Negative) 09/03/18 21:46 Hep B Core IgM Ab Non-reactive (NonReactive) 09/03/18 21:46 Hepatitis C Antibody Reactive (NonReactive) A 09/03/18 21:46 HIV 1&2 Antibody Rapid Non react (Non React) 09/03/18 21:46 HIV P24 Antigen Non react (Non React) 09/03/18 21:46 Influenza A (Rapid) Negative (Negative) 09/03/18 21:51 Influenza B (Rapid) Negative (Negative) 09/03/18 21:51 Active Medications - Current Medications Current Medications: Generic Name Dose Route Start Last Admin Trade Name Freq PRN Reason Stop Dose Admin Acetaminophen 650 mg 09/04/18 00:10 09/04/18 05:49 Tylenol PO 650 mg Q4H PRN Administration Pain MILD(1-3)/Fever >100.5/[place] Fluconazole 100 mg 09/04/18 10:00 09/04/18 09:50 Diflucan PO 100 mg QDAY MARISABEL Administration Sodium Chloride 1,000 mls @ 150 mls/hr 09/04/18 01:00 09/04/18 05:50 Nacl 0.9% 1000 Ml IV 150 mls/hr DIRECT MARISABEL Administration Ondansetron HCl 4 mg 09/04/18 00:10 Zofran IV Q4H PRN Nausea And Vomiting Oxycodone/Acetaminophen 1 tab 09/04/18 00:10 Percocet 5/325 PO Q4H PRN Pain, Moderate (4-6) Sodium Chloride 10 ml 09/04/18 10:00 Sodium Chloride Flush Syringe 10 Ml IV BID MARISABEL Sodium Chloride 10 ml 09/04/18 00:10 Sodium Chloride Flush Syringe 10 Ml IV PRN PRN LINE FLUSH
[2018-09-04 10:11] LABS: Mean Corpuscular HGB Conc 36 % (32-34); Mean Corpuscular Volume 84 fl (84-94); Red Blood Count 4.47 M/mm3 (3.65-5.03); Red Cell Distribution Width 12.9 % (13.2-15.2)
[2018-09-04 10:17] LABS: Hematocrit 37.7 % (35.5-45.6); Hemoglobin 13.7 gm/dl (11.8-15.2); Platelet Count 71 K/mm3 (140-440)
[2018-09-04 10:34] LABS: Alanine Aminotransferase 55 units/L (7-56); Albumin 2.8 g/dL (3.9-5); BUN/Creatinine Ratio 12; Bilirubin,Direct 0.3 mg/dL (0-0.2); Blood Urea Nitrogen 11 mg/dL (9-20); Calcium 7.6 mg/dL (8.4-10.2); Hemolysis Index 13
--- NOTE | 2018-09-04 12:47 | Gastroenterology Consultation ---
History of Present Illness - Reason for Consult Consult date: 09/04/18 Hepatitis C Requesting physician: ELIZABETH MOJICA - History of Present Illness Patient is a 32 y/o male who presented to ED with c/o continued fever and upper respiratory symptoms after recently being treated for pneumonia with antibiotics at [facility] 2 weeks ago. Upon admission, he was found to have an acute febrile illness, undifferentiated sepsis, and lab abnormalities to include hyp onatremia, leukpenia, thrombocytopenia, and transaminitis with etiology suspected to be due to an acute HIV viral syndrome. Rapid HIV negative. ID consult pending. His hepatitis serology was positive for Hepatitis C antibody to which GI has been consulted. This afternoon patient was resting in bed w/o acute distress. He reports no hx of liver disease or Fhx of liver disease. No hx of IV drug use but admits to a hx of heavy alcohol use (now drinks 1-2 beers/day), +tattoos and +MSM. No previous blood transfusion. Denies wt loss, abd pain, N/V, jaundice, itching, signs of bleeding, or LGI symptoms such as diarrhea or constipation. Bowel habit is BMs x 2-3/day. Past History Past Medical History: other (pneumonia) Past Surgical History: No surgical history Social history: smoking (former), alcohol abuse. denies: IV drug use Family history: hypertension Medications and Allergies Allergies Allergy/AdvReac Type Severity Reaction Status Date / Time No Known Allergies Allergy Unverified 06/07/13 12:19 Home Medications Medication Instructions Recorded Confirmed Last Taken Type No Known Home Medications [No 09/03/18 09/03/18 Unknown History Reported Home Medications] Active Meds: Active Medications Acetaminophen (Tylenol) 650 mg PO Q4H PRN PRN Reason: Pain MILD(1-3)/Fever >100.5/[place] Last Admin: 09/04/18 12:35 Dose: 650 mg Documented by: Fluconazole (Diflucan) 100 mg PO QDAY [facility] Last Admin: 09/04/18 09:50 Dose: 100 mg Documented by: Sodium Chloride (Nacl 0.9% 1000 Ml) 1,000 mls @ 150 mls/hr IV DIRECT [facility] Last Admin: 09/04/18 12:39 Dose: 150 mls/hr Documented by: Ondansetron HCl (Zofran) 4 mg IV Q4H PRN PRN Reason: Nausea And Vomiting Oxycodone/Acetaminophen (Percocet 5/325) 1 tab PO Q4H PRN PRN Reason: Pain, Moderate (4-6) Sodium Chloride (Sodium Chloride Flush Syringe 10 Ml) 10 ml IV BID [facility] Sodium Chloride (Sodium Chloride Flush Syringe 10 Ml) 10 ml IV PRN PRN PRN Reason: LINE FLUSH medications reviewed/updated as required Review of Systems - Review of Systems All systems: negative Constitutional: fever, fatigue, weakness Respiratory: cough Gastrointestinal: no abdominal pain, no nausea, no vomiting, no hematemesis, no melena, no hematochezia Exam - Constitutional Vital Signs: Temp Pulse Resp BP Pulse Ox 102.5 F H 80 18 125/69 72 L 09/04/18 11:57 09/04/18 11:57 09/04/18 11:57 09/04/18 11:57 09/04/18 11:57 General appearance: no acute distress - EENT Eyes: PERRL, EOM intact ENT: hearing intact - Respiratory Respiratory: bilateral: diminished - Cardiovascular Rhythm: regular - Gastrointestinal General gastrointestinal: Present: soft, non-tender, non-distended, normal bowel sounds - Integumentary Integumentary: Absent: jaundice - Neurologic Neurological: alert and oriented x3 - Labs CBC & Chem 7: 09/04/18 09:56 09/04/18 09:56 Lab Results: Laboratory Results - last 24 hr 09/03/18 09/03/18 09/03/18 19:44 19:44 19:44 WBC 3.7 L RBC 4.91 Hgb 15.1 Hct 41.6 MCV 85 MCH 31 MCHC 36 H RDW 13.2 Plt Count 79 L Lymph % (Auto) Zone Maintenance Technician Add Manual Diff Complete Total Counted 100 Seg Neutrophils % Zone Maintenance Technician Seg Neuts % (Manual) 51.0 Band Neutrophils % 0 Lymphocytes % (Manual) 41.0 H Reactive Lymphs % (Man) 0 Monocytes % (Manual) 8.0 H Eosinophils % (Manual) 0 Basophils % (Manual) 0 Metamyelocytes % 0 Myelocytes % 0 Promyelocytes % 0 Blast Cells % 0 Nucleated RBC % Not Reportable Seg Neutrophils # Man 1.9 Band Neutrophils # 0.0 Lymphocytes # (Manual) 1.5 Abs React Lymphs (Man) 0.0 Monocytes # (Manual) 0.3 Eosinophils # (Manual) 0.0 Basophils # (Manual) 0.0 Metamyelocytes # 0.0 Myelocytes # 0.0 Promyelocytes # 0.0 Blast Cells # 0.0 WBC Morphology Not Reportable Hypersegmented Neuts Not Reportable Hyposegmented Neuts Not Reportable Hypogranular Neuts Not Reportable Smudge Cells Not Reportable Toxic Granulation Not Reportable Toxic Vacuolation Not Reportable Dohle Bodies Not Reportable Pelger-Huet Anomaly Not Reportable Rain Rods Not Reportable Platelet Estimate Appears decreased Clumped Platelets Not Reportable Plt Clumps, EDTA Not Reportable Large Platelets Not Reportable Giant Platelets Not Reportable Platelet Satelliting Not Reportable Plt Morphology Comment Not Reportable RBC Morphology Not Reportable Dimorphic RBCs Not Reportable Polychromasia Not Reportable Hypochromasia Not Reportable Poikilocytosis 1+ Anisocytosis 1+ Microcytosis Rare Macrocytosis Not Reportable Spherocytes Not Reportable Pappenheimer Bodies Not Reportable Sickle Cells Not Reportable Target Cells Few Tear Drop Cells Not Reportable Ovalocytes Not Reportable Helmet Cells Not Reportable [place] Bodies Not Reportable [place] Rings Not Reportable [place] Cells Not Reportable Bite Cells Not Reportable Crenated Cell Not Reportable Elliptocytes Not Reportable Acanthocytes (Spur) Not Reportable Rouleaux Not Reportable Hemoglobin C Crystals Not Reportable Schistocytes Not Reportable Malaria parasites Not Reportable Cain Bodies Not Reportable Hem Pathologist Commnt No Sodium 123 L Potassium 4.5 Chloride 83.9 L Carbon Dioxide 25 Anion Gap 19 BUN 14 Creatinine 1.1 Estimated GFR > 60 BUN/Creatinine Ratio 13 Glucose 104 H Lactic Acid 3.20 H* Calcium 8.5 Total Bilirubin 0.40 Direct Bilirubin Indirect Bilirubin AST 219 H ALT 74 H Alkaline Phosphatase 67 Total Protein 6.9 Albumin 3.4 L Albumin/Globulin Ratio 1.0 Urine Color Urine Turbidity Urine pH Ur Specific [place] Urine Protein Urine Glucose (UA) Urine Ketones Urine Blood Urine Nitrite Urine Bilirubin Urine Urobilinogen Ur Leukocyte Esterase Urine WBC (Auto) Urine RBC (Auto) Urine Mucus Hepatitis A IgM Ab Hep Bs Antigen Hep B Core IgM Ab Hepatitis C Antibody HIV 1&2 Antibody Rapid HIV P24 Antigen Influenza A (Rapid) Influenza B (Rapid) 09/03/18 09/03/18 09/03/18 20:57 21:46 21:46 WBC RBC Hgb Hct MCV MCH MCHC RDW Plt Count Lymph % (Auto) Add Manual Diff Total Counted Seg Neutrophils % Seg Neuts % (Manual) Band Neutrophils % Lymphocytes % (Manual) Reactive Lymphs % (Man) Monocytes % (Manual) Eosinophils % (Manual) Basophils % (Manual) Metamyelocytes % Myelocytes % Promyelocytes % Blast Cells % Nucleated RBC % Seg Neutrophils # Man Band Neutrophils # Lymphocytes # (Manual) Abs React Lymphs (Man) Monocytes # (Manual) Eosinophils # (Manual) Basophils # (Manual) Metamyelocytes # Myelocytes # Promyelocytes # Blast Cells # WBC Morphology Hypersegmented Neuts Hyposegmented Neuts Hypogranular Neuts Smudge Cells Toxic Granulation Toxic Vacuolation Dohle Bodies Pelger-Huet Anomaly Rain Rods Platelet Estimate Clumped Platelets Plt Clumps, EDTA Large Platelets Giant Platelets Platelet Satelliting Plt Morphology Comment RBC Morphology Dimorphic RBCs Polychromasia Hypochromasia Poikilocytosis Anisocytosis Microcytosis Macrocytosis Spherocytes Pappenheimer Bodies Sickle Cells Target Cells Tear Drop Cells Ovalocytes Helmet Cells [place] Bodies [place] Rings [place] Cells Bite Cells Crenated Cell Elliptocytes Acanthocytes (Spur) Rouleaux Hemoglobin C Crystals Schistocytes Malaria parasites Cain Bodies Hem Pathologist Commnt Sodium Potassium Chloride Carbon Dioxide Anion Gap BUN Creatinine Estimated GFR BUN/Creatinine Ratio Glucose Lactic Acid 3.50 H* Calcium Total Bilirubin Direct Bilirubin Indirect Bilirubin AST ALT Alkaline Phosphatase Total Protein Albumin Albumin/Globulin Ratio Urine Color Urine Turbidity Urine pH Ur Specific [place] Urine Protein Urine Glucose (UA) Urine Ketones Urine Blood Urine Nitrite Urine Bilirubin Urine Urobilinogen Ur Leukocyte Esterase Urine WBC (Auto) Urine RBC (Auto) Urine Mucus Hepatitis A IgM Ab Non-reactive Hep Bs Antigen Non-reactive Hep B Core IgM Ab Non-reactive Hepatitis C Antibody Reactive A HIV 1&2 Antibody Rapid Non react HIV P24 Antigen Non react Influenza A (Rapid) Influenza B (Rapid) 09/03/18 09/03/18 09/03/18 21:51 21:51 22:51 WBC RBC Hgb Hct MCV MCH MCHC RDW Plt Count Lymph % (Auto) Add Manual Diff Total Counted Seg Neutrophils % Seg Neuts % (Manual) Band Neutrophils % Lymphocytes % (Manual) Reactive Lymphs % (Man) Monocytes % (Manual) Eosinophils % (Manual) Basophils % (Manual) Metamyelocytes % Myelocytes % Promyelocytes % Blast Cells % Nucleated RBC % Seg Neutrophils # Man Band Neutrophils # Lymphocytes # (Manual) Abs React Lymphs (Man) Monocytes # (Manual) Eosinophils # (Manual) Basophils # (Manual) Metamyelocytes # Myelocytes # Promyelocytes # Blast Cells # WBC Morphology Hypersegmented Neuts Hyposegmented Neuts Hypogranular Neuts Smudge Cells Toxic Granulation Toxic Vacuolation Dohle Bodies Pelger-Huet Anomaly Rain Rods Platelet Estimate Clumped Platelets Plt Clumps, EDTA Large Platelets Giant Platelets Platelet Satelliting Plt Morphology Comment RBC Morphology Dimorphic RBCs Polychromasia Hypochromasia Poikilocytosis Anisocytosis Microcytosis Macrocytosis Spherocytes Pappenheimer Bodies Sickle Cells Target Cells Tear Drop Cells Ovalocytes Helmet Cells [place] Bodies [place] Rings [place] Cells Bite Cells Crenated Cell Elliptocytes Acanthocytes (Spur) Rouleaux Hemoglobin C Crystals Schistocytes Malaria parasites Cain Bodies Hem Pathologist Commnt Sodium Potassium Chloride Carbon Dioxide Anion Gap BUN Creatinine Estimated GFR BUN/Creatinine Ratio Glucose Lactic Acid 1.10 Calcium Total Bilirubin Direct Bilirubin Indirect Bilirubin AST ALT Alkaline Phosphatase Total Protein Albumin Albumin/Globulin Ratio Urine Color Marlene Urine Turbidity Clear Urine pH 6.0 Ur Specific [place] 1.029 Urine Protein >500 Urine Glucose (UA) Neg Urine Ketones Neg Urine Blood Mod Urine Nitrite Neg Urine Bilirubin Neg Urine Urobilinogen < 2.0 Ur Leukocyte Esterase Neg Urine WBC (Auto) 4.0 Urine RBC (Auto) < 1.0 Urine Mucus Few Hepatitis A IgM Ab Hep Bs Antigen Hep B Core IgM Ab Hepatitis C Antibody HIV 1&2 Antibody Rapid HIV P24 Antigen Influenza A (Rapid) Negative Influenza B (Rapid) Negative 09/04/18 09/04/18 09:56 09:56 WBC 1.9 L* RBC 4.47 Hgb 13.7 Hct 37.7 MCV 84 MCH 31 MCHC 36 H RDW 12.9 L Plt Count 71 L Lymph % (Auto) Add Manual Diff Total Counted Seg Neutrophils % Seg Neuts % (Manual) Band Neutrophils % Lymphocytes % (Manual) Reactive Lymphs % (Man) Monocytes % (Manual) Eosinophils % (Manual) Basophils % (Manual) Metamyelocytes % Myelocytes % Promyelocytes % Blast Cells % Nucleated RBC % Seg Neutrophils # Man Band Neutrophils # Lymphocytes # (Manual) Abs React Lymphs (Man) Monocytes # (Manual) Eosinophils # (Manual) Basophils # (Manual) Metamyelocytes # Myelocytes # Promyelocytes # Blast Cells # WBC Morphology Hypersegmented Neuts Hyposegmented Neuts Hypogranular Neuts Smudge Cells Toxic Granulation Toxic Vacuolation Dohle Bodies Pelger-Huet Anomaly Rain Rods Platelet Estimate Clumped Platelets Plt Clumps, EDTA Large Platelets Giant Platelets Platelet Satelliting Plt Morphology Comment RBC Morphology Dimorphic RBCs Polychromasia Hypochromasia Poikilocytosis Anisocytosis Microcytosis Macrocytosis Spherocytes Pappenheimer Bodies Sickle Cells Target Cells Tear Drop Cells Ovalocytes Helmet Cells [place] Bodies [place] Rings [place] Cells Bite Cells Crenated Cell Elliptocytes Acanthocytes (Spur) Rouleaux Hemoglobin C Crystals Schistocytes Malaria parasites Cain Bodies Hem Pathologist Commnt Sodium 125 L Potassium 4.0 Chloride 91.1 L Carbon Dioxide 23 Anion Gap 15 BUN 11 Creatinine 0.9 Estimated GFR > 60 BUN/Creatinine Ratio 12 Glucose 100 Lactic Acid Calcium 7.6 L Total Bilirubin 0.50 Direct Bilirubin 0.3 H Indirect Bilirubin 0.2 AST 162 H ALT 55 Alkaline Phosphatase 54 Total Protein 5.4 L D Albumin 2.8 L Albumin/Globulin Ratio 1.1 Urine Color Urine Turbidity Urine pH Ur Specific [place] Urine Protein Urine Glucose (UA) Urine Ketones Urine Blood Urine Nitrite Urine Bilirubin Urine Urobilinogen Ur Leukocyte Esterase Urine WBC (Auto) Urine RBC (Auto) Urine Mucus Hepatitis A IgM Ab Hep Bs Antigen Hep B Core IgM Ab Hepatitis C Antibody HIV 1&2 Antibody Rapid HIV P24 Antigen Influenza A (Rapid) Influenza B (Rapid) Assessment and Plan 1.elevated LFTs 2.hepatitis C antibody positive -temp 102.5 -WBC 1.9 -H/H 13.7/37.7 -plt 71 -LFTs- T.jaycob 0.50, AST 162, ALT 55, alk phos 54-trending down -hepatitis panel- +hepatitis C antibody -CT chest showed fatty infiltration of the liver -etiology-likely 2/2 alcohol and hep C (underlying cirrhosis not excluded) -clinically, patient is w/o GI complaints. Denies abd pain or N/V. No active signs of bleeding. Tolerating diet. No encephalopathy noted upon exam. -will order abd U/S for further evaluation of the liver -INR in am -HCV RNA pending- will order genotype (further treatment as outpatient) -continue to trend labs and supportive care -electrolyte management per primary team -further recommendations to follow 3.SIRS/fever-UA negative, rapid influenza negative 4.acute HIV viral syndrome?-rapid HIV negative. HIV RNA pending. ID consult pending 5.leukopenia 6.thrombocytopenia 7.hyponatremia
[2018-09-04] MEDS: SODIUM CHLORIDE FLUSH SYRINGE 10 ML IV SCH ×2 (13:26→21:46)
[2018-09-04 14:52] LABS: Band Neutrophils # (Manual) 0.1 K/mm3; Basophils % (Manual) 0 % (0.0-1.8); Eosinophils % (Manual) 0 % (0.0-4.3); Monocytes % (Manual) 0 % (0.0-7.3); Platelet Estimate Consistent w Auto; RBC Morphology Normal; Total Cells Counted 100
--- NOTE | 2018-09-04 15:22 | Consultation ---
History of Present Illness - Reason for Consult Consult date: 09/04/18 SIRS Requesting physician: BRIANDA MIKE - History of Present Illness 32 y/o man with no medical history except for tobacco and EOTH abuse; admitted on 09/03/2018 due to 2-week history of cough with yellow sputum production and chest pressure upon coughing. He was seen at [facility] on 08/15/2018 diagnosed with pneumonia treated with doxycycline for 10 days. Review of records from [facility] ED visit showed WBC 17K, AST 213/ALT 313, bili 1.4. Blood cultures negative. CXR showed lingular and LLL pneumonia. He stated his symptoms improved slightly. However reports decreased appetite, no weight loss, no hemoptysis. He has a history of syphilis, state he was treated, +male partners, denies unprotected sex reported to ED provider. In the ED, temp 103, HR 97, R 16, O2 sat 95%, BP 98/63. WBC 3.7 Hg 15, Plat 79. Creat 1.1. AST 219. ALT 74. Lactate 3.2. UA neg. Blood culture 09/03/2018 no growth today. HCV serology positive. HBV serology netgative. HIV rapid negative. Influenza rapid negative. CXR neg. CTA showed No evidence of PE, bibasilar subsegmental atelectasis greater on the left than the right and diffuse fatty infiltration of the liver. Review of Systems: General: + fever, + chills, +nightsweats, +unintentional weight change, anorexia Cutaneous: no rash, pruritus Head: no headaches or injury Eyes: no changes in vision, eye pain, double vision Ears: no ear pain, ear discharge, ringing or hearing loss Nose: no nose bleeding, stuffiness Mouth & throat: no bleeding gums, no horseness, no dental problems, or swollen glands Neck: no pain, node enlargement/lumps, tyroid enlargement or tenderness Respiratory: + cough, wheezing, sputum, hemoptysis, pleuritic chest pain Cardiovascular: + chest pain, leg edema, cyanosis, PALM, orthopnea Musculoskeletal: no decreased joint motion, bone or joint pain, joint swelling, muscle aches Gastrointestinal: no nausea, vomiting, hematemesis, diarrhea, constipation, melena, bright red blood in stools, fecal incontinence, jaundice Genitourinary/Reproductive: no frequent urination, dysuria, hematuria, incontinence Neurogical: no seizures, no headaches, no weakness, no paresthesias, no loss of speech or vision; no memory loss, no vertigo, no tremors, no numbness Psychiatric: stable mood; no excessive anxiety, sadness or moodiness Past History Past Medical History: other (pneumonia) Past Surgical History: No surgical history Social history: smoking (former), alcohol abuse. denies: IV drug use Family history: hypertension Medications and Allergies Allergies Allergy/AdvReac Type Severity Reaction Status Date / Time No Known Allergies Allergy Unverified 06/07/13 12:19 Home Medications Medication Instructions Recorded Confirmed Last Taken Type No Known Home Medications [No 09/03/18 09/03/18 Unknown History Reported Home Medications] Active Meds: Active Medications Acetaminophen (Tylenol) 650 mg PO Q4H PRN PRN Reason: Pain MILD(1-3)/Fever >100.5/[place] Last Admin: 09/04/18 12:35 Dose: 650 mg Documented by: Fluconazole (Diflucan) 100 mg PO QDAY [facility] Last Admin: 09/04/18 09:50 Dose: 100 mg Documented by: Sodium Chloride (Nacl 0.9% 1000 Ml) 1,000 mls @ 150 mls/hr IV DIRECT [facility] Last Admin: 09/04/18 12:39 Dose: 150 mls/hr Documented by: Ondansetron HCl (Zofran) 4 mg IV Q4H PRN PRN Reason: Nausea And Vomiting Oxycodone/Acetaminophen (Percocet 5/325) 1 tab PO Q4H PRN PRN Reason: Pain, Moderate (4-6) Sodium Chloride (Sodium Chloride Flush Syringe 10 Ml) 10 ml IV BID [facility] Last Admin: 09/04/18 13:26 Dose: Not Given Documented by: Sodium Chloride (Sodium Chloride Flush Syringe 10 Ml) 10 ml IV PRN PRN PRN Reason: LINE FLUSH Physical Examination - Physical Exam Narrative exam: General appearance: Alert in NAD, conversant Eyes: anicteric sclerae, moist conjunctivae; no lid-lag; PERRLA HENT: Atraumatic; oropharynx clear with moist mucous membranes and + oral thrush; normal hard and soft palate. Normal external ears. Neck: Trachea midline; supple, no thyromegaly or lymphadenopathy Lungs: jaycob scattered crackles CV: RRR, no murmurs Abdomen: Soft, non-tender; no masses or hepatosplenomegaly Extremities: No peripheral edema or extremity lymphadenopathy Skin: Normal temperature, turgor and texture; no rash, ulcers or subcutaneous nodules Psych: anxious. Neuro: alert and oriented x 3. Moving all extermities - Constitutional Vitals: Vital Signs Temp Pulse Resp BP Pulse Ox 102.5 F H 80 18 125/69 72 L 09/04/18 11:57 09/04/18 11:57 09/04/18 11:57 09/04/18 11:57 09/04/18 11:57 Temperature -Last 24 Hours Temperature 102.5 F Temperature 101.9 F Temperature 99.4 F Temperature 100.2 F Temperature 102.8 F Temperature 103 F Temperature 103 F Results - Labs CBC & Chem 7: 09/04/18 09:56 09/04/18 09:56 Labs: Abnormal lab results 09/03/18 09/03/18 09/03/18 Range/Units 19:44 19:44 19:44 WBC 3.7 L (4.5-11.0) K/mm3 MCHC 36 H (32-34) % RDW (13.2-15.2) % Plt Count 79 L (140-440) K/mm3 Seg Neuts % (Manual) (40.0-70.0) % Lymphocytes % (Manual) 41.0 H (13.4-35.0) % Monocytes % (Manual) 8.0 H (0.0-7.3) % Seg Neutrophils # Man (1.8-7.7) K/mm3 Lymphocytes # (Manual) (1.2-5.4) K/mm3 Sodium 123 L (137-145) mmol/L Chloride 83.9 L (98-107) mmol/L Glucose 104 H (75-100) mg/dL Lactic Acid 3.20 H* (0.7-2.0) mmol/L Calcium (8.4-10.2) mg/dL Direct Bilirubin (0-0.2) mg/dL AST 219 H (5-40) units/L ALT 74 H (7-56) units/L Total Protein (6.3-8.2) g/dL Albumin 3.4 L (3.9-5) g/dL Hepatitis C Antibody (NonReactive) 09/03/18 09/03/18 09/04/18 Range/Units 20:57 21:46 09:56 WBC 1.9 L* (4.5-11.0) K/mm3 MCHC 36 H (32-34) % RDW 12.9 L (13.2-15.2) % Plt Count 71 L (140-440) K/mm3 Seg Neuts % (Manual) 90.0 H (40.0-70.0) % Lymphocytes % (Manual) 7.0 L (13.4-35.0) % Monocytes % (Manual) (0.0-7.3) % Seg Neutrophils # Man 1.7 L (1.8-7.7) K/mm3 Lymphocytes # (Manual) 0.1 L (1.2-5.4) K/mm3 Sodium (137-145) mmol/L Chloride (98-107) mmol/L Glucose (75-100) mg/dL Lactic Acid 3.50 H* (0.7-2.0) mmol/L Calcium (8.4-10.2) mg/dL Direct Bilirubin (0-0.2) mg/dL AST (5-40) units/L ALT (7-56) units/L Total Protein (6.3-8.2) g/dL Albumin (3.9-5) g/dL Hepatitis C Antibody Reactive A (NonReactive) 09/04/18 Range/Units 09:56 WBC (4.5-11.0) K/mm3 MCHC (32-34) % RDW (13.2-15.2) % Plt Count (140-440) K/mm3 Seg Neuts % (Manual) (40.0-70.0) % Lymphocytes % (Manual) (13.4-35.0) % Monocytes % (Manual) (0.0-7.3) % Seg Neutrophils # Man (1.8-7.7) K/mm3 Lymphocytes # (Manual) (1.2-5.4) K/mm3 Sodium 125 L (137-145) mmol/L Chloride 91.1 L (98-107) mmol/L Glucose (75-100) mg/dL Lactic Acid (0.7-2.0) mmol/L Calcium 7.6 L (8.4-10.2) mg/dL Direct Bilirubin 0.3 H (0-0.2) mg/dL AST 162 H (5-40) units/L ALT (7-56) units/L Total Protein 5.4 L D (6.3-8.2) g/dL Albumin 2.8 L (3.9-5) g/dL Hepatitis C Antibody (NonReactive) Assessment and Plan Cultures: Blood culture Urine culture Sputum culture Assessment: 32 y/o man with no medical history except for tobacco and EOTH abuse, MSM; admitted on 09/03/2018 due to 2-week history of cough with yellow sputum production and chest pressure upon coughing 1) SIRS v/s sepsis: Present on admission, manifested by fever, tachycardia, hypotension, neutropenia, increased lactate. Etiology unclear. DDx Acute antiretroviral syndrome +/- acute mononucleosis +/- acute HCV +/- acute ETOh hepatitis +/- influenza, doubt leptospirosis or autoimmune. - Blood culture 09/03/2018 no growth today. - UA neg - HCV serology positive. - HBV serology netgative. - HIV rapid negative. - Influenza rapid negative. - CXR neg. - CTA showed No evidence of PE, bibasilar subsegmental atelectasis greater on the left than the right and diffuse fatty infiltration of the liver 2) Recent pneumonia: seen at [facility] ED on 08/15/2018 visit showed WBC 17K, AST 213/ALT 313, bili 1.4. Blood cultures negative. CXR showed lingular and LLL pneumonia. treated with doxycycline for 10 days. 3) Elevated LFTs ? from HCV +/- cute antiretroviral syndrome +/- acute mononucleosis +/- acute ETOh hepatitis +/- doubt leptospirosis or autoimmune. 4) History of syphilis 5) Neutropenia and throbocytopenia 7) Oral candidiasis 8) Cough ? CXR neg. CT neg for consolidation, if AIDS ? PJP Recommendations: - follow-up blood cultures - obtain C-reactive protein (CRP), DARVIN with reflex, C3, C4 - check influenza antigen PCR in nasopharinx - check Legionella urine antigen - check Cryptococcal serum antigen - check EBV serology and EBV serum PCR, and CMV serology and EBV serum PCR - obtain HIV-4th generation test, HIV-viral load - abdominal US - continue fluconazole - add tamiflu until flu is r/o - add bactrim DS 2 tab PO TID until PJP is r/o - check LDH Dr Villafana to round this weekend Jayde Lott MD Infectious Diseases Divisional Storekeeper [facility] ([facility] M [phone] O [phone]
--- NOTE | 2018-09-04 15:59 | Consultation ---
History of Present Illness - Reason for Consult hyponatremia - History of Present Illness This is a very pleasant 32-year-old -[place] male with no significant medical history, with a history of alcohol abuse and tobacco abuse, who presented to emergency department secondary to worsening weakness, fatigue, increased productive cough and fevers. He had recently been at [facility] for similar symptoms and was diagnosed with a pneumonia. He was discharged home from the emergency room department with a course of antibiotics. He states that he had finished his 10 day course of antibiotics and still remains symptomatic as mentioned. He comes into the emergency department and labs were significant for hyponatremia, for which nephrology is being consulted for further evaluation at this time. He has been started on normal saline at 150 mL an hour since admission and his serum sodium has increased from 123-125. He denies any symptoms of altered mental status, confusion, lethargy, nausea, vomiting, or headaches. He denies any history of renal disease. His labs were positive for hep C antibody. He is also showing on his urinalysis increased proteinuria as well as evidence of hypoalbuminemia on the serum chemistry. He does not have any significant lower extremity edema noted on physical exam this afternoon. Past History Past Medical History: other (pneumonia) Past Surgical History: No surgical history Social history: smoking (former), alcohol abuse. denies: IV drug use Family history: hypertension Medications and Allergies Allergies Allergy/AdvReac Type Severity Reaction Status Date / Time No Known Allergies Allergy Unverified 06/07/13 12:19 Home Medications Medication Instructions Recorded Confirmed Last Taken Type No Known Home Medications [No 09/03/18 09/03/18 Unknown History Reported Home Medications] Active Meds: Active Medications Acetaminophen (Tylenol) 650 mg PO Q4H PRN PRN Reason: Pain MILD(1-3)/Fever >100.5/[place] Last Admin: 09/04/18 12:35 Dose: 650 mg Documented by: Fluconazole (Diflucan) 100 mg PO QDAY [facility] Last Admin: 09/04/18 09:50 Dose: 100 mg Documented by: Sodium Chloride (Nacl 0.9% 1000 Ml) 1,000 mls @ 150 mls/hr IV DIRECT MARISABEL Last Admin: 09/04/18 12:39 Dose: 150 mls/hr Documented by: Ondansetron HCl (Zofran) 4 mg IV Q4H PRN PRN Reason: Nausea And Vomiting Oseltamivir Phosphate (Tamiflu) 75 mg PO BID [facility] Stop: 09/08/18 22:01 Oxycodone/Acetaminophen (Percocet 5/325) 1 tab PO Q4H PRN PRN Reason: Pain, Moderate (4-6) Sodium Chloride (Sodium Chloride Flush Syringe 10 Ml) 10 ml IV BID [facility] Last Admin: 09/04/18 13:26 Dose: Not Given Documented by: Sodium Chloride (Sodium Chloride Flush Syringe 10 Ml) 10 ml IV PRN PRN PRN Reason: LINE FLUSH Trimethoprim/Sulfamethoxazole (Bactrim Ds) 2 each PO Q8HR [facility] Review of Systems All systems: negative Constitutional: fever, fatigue, weakness, poor appetite Respiratory: cough, cough with sputum, congestion Exam - Vital Signs Vital signs: Vital Signs Temp Pulse Resp BP Pulse Ox 103 F H 97 H 16 98/63 95 09/03/18 19:08 09/03/18 19:08 09/03/18 19:08 09/03/18 19:08 09/03/18 19:08 - General Appearance General appearance: well-developed, well-nourished, appears stated age EENT: ATNC, PERRL Neck: Present: neck supple, trachea midline Respiratory: Clear to Ascultation Heart: regular, normal heart rate, S1S2 Gastrointestinal: Present: normal, normoactive bowel sounds Integumentary: no rash, warm and dry Neurologic: no focal deficit, no asterixis, alert and oriented x3 Psychiatric: mood/affect appropriate, cooperative Results - Lab Results 09/04/18 09:56 09/04/18 09:56 Most recent lab results Calcium 7.6 mg/dL (8.4-10.2) L 09/04/18 09:56 Assessment and Plan - Patient Problems (1) Hyponatremia Current Visit: Yes Status: Acute Plan to address problem: Unclear etiology of hyponatremia but may be secondary to decreased solute intake. There is slight improvement noted with IV fluid hydration. With tomorrow's morning labs I will also order a serum and urine osmolality along with urine electrolytes for further evaluation of his hyponatremia. I will also order thyroid-stimulating hormone along with free T4 levels. We will also order an a.m. cortisol level for further evaluation. He does not have any acute needs or symptoms that necessitate using hypertonic saline at this time. We will continue to closely monitor. (2) Proteinuria Current Visit: Yes Status: Acute Plan to address problem: Unclear etiology but it is in the setting of microscopic hematuria, a positive hep C antibody as well as hypoalbuminemia. He does not have any edema on physical exam. Will get a urine protein to creatinine ratio for quantification purposes. Hep C viral load is being ordered at this time. Also undergoing evaluation for HIV. Full serologic workup for infectious disease noted at this time. (3) Thrombocytopenia Current Visit: Yes Status: Acute Plan to address problem: No previous laboratory studies to compare to prior to this admission. We will monitor closely. (4) Transaminitis Current Visit: Yes Status: Acute Plan to address problem: Abdominal ultrasound ordered and we will follow up on results of studies. We'll also follow-up on further hep C serologies.
[2018-09-04] MEDS: TAMIFLU PO SCH ×2 (18:54→21:45)
[2018-09-04] MEDS: BACTRIM DS PO SCH ×2 (18:54→21:44)
[2018-09-05 05:15] LABS: Chloride, Urine 93.9 mmolL (110-250)
[2018-09-05 05:20] LABS: Creatinine,Urine 154.8 mg/dL (0.1-20.0)
[2018-09-05 05:31] LABS: Protein/Creatinine Ratio,Urine 2.78
[2018-09-05] MEDS: BACTRIM DS PO SCH ×3 (05:43→07:54)
[2018-09-05 06:24] LABS: Basophils % (Auto) 0.9 % (0.0-1.8); Lymphocytes # (Auto) 1.1 K/mm3 (1.2-5.4); Lymphocytes % (Auto) 26.8 % (13.4-35.0); Mean Corpuscular HGB Conc 36 % (32-34); Mean Corpuscular Volume 84 fl (84-94); Monocytes # (Auto) 0.2 K/mm3 (0.0-0.8); Monocytes % (Auto) 4.5 % (0.0-7.3); Red Cell Distribution Width 13.2 % (13.2-15.2)
[2018-09-05 06:34] LABS: INR 0.9 (0.87-1.13)
[2018-09-05 06:46] LABS: Hematocrit 38.7 % (35.5-45.6); Platelet Count 68 K/mm3 (140-440)
[2018-09-05 06:48] LABS: Alanine Aminotransferase 51 units/L (7-56); Albumin 2.7 g/dL (3.9-5); BUN/Creatinine Ratio 9; Bilirubin,Direct 0.2 mg/dL (0-0.2); Blood Urea Nitrogen 8 mg/dL (9-20); Calcium 7.8 mg/dL (8.4-10.2); Hemolysis Index 8
--- NOTE | 2018-09-05 07:42 | Progress Note ---
Assessment and Plan Assessment and plan: 32-year-old man who presents to the hospital with fever. He was treated at [facility] 2 weeks ago for community acquired pneumonia and was treated with antibiotics, the patient reports compliance of those antibiotics CT amgio chest; no evidence of PE diffuse fatty infiltration of the liver Labs, UA is negative for UTI, hepatitis serology is only positive for positive hep C antibody, rapid HIV is negative, rapid influenza is negative Diagnoses Fever Transaminitis Severe hyponatremia SIRS Hep C Hypochloremia Leukopenia thrombocytopenia acute HIV viral syndrome Tobacco abuse Plan - abx per ID -Obtain HIV RNA quantitative, and also obtain CD4 counts -Obtain hep C viral RNA, quantitative, and genotype -Hypotonic IVF, Nephrology consult, hyponatremia/hypochloremia likely due to hypovolemia, hyposolutemia -Patient was counseled greater than 10 minutes about tobacco cessation -DVT ppx- chemical History Interval history: Review of systems Constitutional: Patient is having high fevers and malaise CVS: No chest pain, no orthopnea, no dyspnea on exertion, no pedal edema GI: No abdominal pain, no diarrhea, no vomiting, no constipation Respiratory: No shortness of breath, no wheezing, no coughing Hospitalist Physical - Physical exam Narrative exam: General.: Appears well, no distress, toxic appearance HEENT: Moist mucous membranes, extraocular muscles intact, no lymphadenopathy Neck: supple Cardiac: S1-S2 heard Lungs: clear to auscultation bilaterally Abdomen: soft , nontender, nondistended, bowel sounds positive Extremities: no edema clubbing or cyanosis Skin: no rash or lesions Neurologic: no gross focal deficits Psych: calm, and cooperative - Constitutional Vitals: Temp Pulse Resp BP Pulse Ox 101.7 F H 89 20 118/67 92 09/05/18 06:29 09/05/18 06:29 09/05/18 06:29 09/05/18 06:29 09/05/18 06:29 Results - Labs CBC & Chem 7: 09/05/18 05:27 09/05/18 05:27 Labs: Laboratory Last Values WBC 4.0 K/mm3 (4.5-11.0) L 09/05/18 05:27 RBC 4.60 M/mm3 (3.65-5.03) 09/05/18 05:27 Hgb 14.0 gm/dl (11.8-15.2) 09/05/18 05:27 Hct 38.7 % (35.5-45.6) 09/05/18 05:27 MCV 84 fl (84-94) 09/05/18 05:27 MCH 30 pg (28-32) 09/05/18 05:27 MCHC 36 % (32-34) H 09/05/18 05:27 RDW 13.2 % (13.2-15.2) 09/05/18 05:27 Plt Count 68 K/mm3 (140-440) L 09/05/18 05:27 Lymph % (Auto) 26.8 % (13.4-35.0) 09/05/18 05:27 [place] % (Auto) 4.5 % (0.0-7.3) 09/05/18 05:27 Eos % (Auto) 0.0 % (0.0-4.3) 09/05/18 05:27 Baso % (Auto) 0.9 % (0.0-1.8) 09/05/18 05:27 Lymph # 1.1 K/mm3 (1.2-5.4) L 09/05/18 05:27 [place] # 0.2 K/mm3 (0.0-0.8) 09/05/18 05:27 Eos # 0.0 K/mm3 (0.0-0.4) 09/05/18 05:27 Baso # 0.0 K/mm3 (0.0-0.1) 09/05/18 05:27 Add Manual Diff Complete 09/04/18 09:56 Total Counted 100 09/04/18 09:56 Seg Neutrophils % 67.8 % (40.0-70.0) 09/05/18 05:27 Seg Neuts % (Manual) 90.0 % (40.0-70.0) H 09/04/18 09:56 Band Neutrophils % 3.0 % 09/04/18 09:56 Lymphocytes % (Manual) 7.0 % (13.4-35.0) L 09/04/18 09:56 Reactive Lymphs % (Man) 0 % 09/04/18 09:56 Monocytes % (Manual) 0 % (0.0-7.3) 09/04/18 09:56 Eosinophils % (Manual) 0 % (0.0-4.3) 09/04/18 09:56 Basophils % (Manual) 0 % (0.0-1.8) 09/04/18 09:56 Metamyelocytes % 0 % 09/04/18 09:56 Myelocytes % 0 % 09/04/18 09:56 Promyelocytes % 0 % 09/04/18 09:56 Blast Cells % 0 % 09/04/18 09:56 Nucleated RBC % Not Reportable 09/04/18 09:56 Seg Neutrophils # 2.7 K/mm3 (1.8-7.7) 09/05/18 05:27 Seg Neutrophils # Man 1.7 K/mm3 (1.8-7.7) L 09/04/18 09:56 Band Neutrophils # 0.1 K/mm3 09/04/18 09:56 Lymphocytes # (Manual) 0.1 K/mm3 (1.2-5.4) L 09/04/18 09:56 Abs React Lymphs (Man) 0.0 K/mm3 09/04/18 09:56 Monocytes # (Manual) 0.0 K/mm3 (0.0-0.8) 09/04/18 09:56 Eosinophils # (Manual) 0.0 K/mm3 (0.0-0.4) 09/04/18 09:56 Basophils # (Manual) 0.0 K/mm3 (0.0-0.1) 09/04/18 09:56 Metamyelocytes # 0.0 K/mm3 09/04/18 09:56 Myelocytes # 0.0 K/mm3 09/04/18 09:56 Promyelocytes # 0.0 K/mm3 09/04/18 09:56 Blast Cells # 0.0 K/mm3 09/04/18 09:56 WBC Morphology Not Reportable 09/04/18 09:56 Hypersegmented Neuts Not Reportable 09/04/18 09:56 Hyposegmented Neuts Not Reportable 09/04/18 09:56 Hypogranular Neuts Not Reportable 09/04/18 09:56 Smudge Cells Not Reportable 09/04/18 09:56 Toxic Granulation Not Reportable 09/04/18 09:56 Toxic Vacuolation Not Reportable 09/04/18 09:56 Dohle Bodies Not Reportable 09/04/18 09:56 Pelger-Huet Anomaly Not Reportable 09/04/18 09:56 Rain Rods Not Reportable 09/04/18 09:56 Platelet Estimate Consistent w auto 09/04/18 09:56 Clumped Platelets Not Reportable 09/04/18 09:56 Plt Clumps, EDTA Not Reportable 09/04/18 09:56 Large Platelets Not Reportable 09/04/18 09:56 Giant Platelets Not Reportable 09/04/18 09:56 Platelet Satelliting Not Reportable 09/04/18 09:56 Plt Morphology Comment Not Reportable 09/04/18 09:56 RBC Morphology Normal 09/04/18 09:56 Dimorphic RBCs Not Reportable 09/04/18 09:56 Polychromasia Not Reportable 09/04/18 09:56 Hypochromasia Not Reportable 09/04/18 09:56 Poikilocytosis Not Reportable 09/04/18 09:56 Anisocytosis Not Reportable 09/04/18 09:56 Microcytosis Not Reportable 09/04/18 09:56 Macrocytosis Not Reportable 09/04/18 09:56 Spherocytes Not Reportable 09/04/18 09:56 Pappenheimer Bodies Not Reportable 09/04/18 09:56 Sickle Cells Not Reportable 09/04/18 09:56 Target Cells Not Reportable 09/04/18 09:56 Tear Drop Cells Not Reportable 09/04/18 09:56 Ovalocytes Not Reportable 09/04/18 09:56 Helmet Cells Not Reportable 09/04/18 09:56 [place] Bodies Not Reportable 09/04/18 09:56 [place] Rings Not Reportable 09/04/18 09:56 H[place] Cells Not Reportable 09/04/18 09:56 Bite Cells Not Reportable 09/04/18 09:56 Crenated Cell Not Reportable 09/04/18 09:56 Elliptocytes Not Reportable 09/04/18 09:56 Acanthocytes (Spur) Not Reportable 09/04/18 09:56 Rouleaux Not Reportable 09/04/18 09:56 Hemoglobin C Crystals Not Reportable 09/04/18 09:56 Schistocytes Not Reportable 09/04/18 09:56 Malaria parasites Not Reportable 09/04/18 09:56 Cain Bodies Not Reportable 09/04/18 09:56 Hem Pathologist Commnt No 09/04/18 09:56 PT 12.7 Sec. (12.2-14.9) 09/05/18 05:27 INR 0.90 (0.87-1.13) 09/05/18 05:27 Sodium 126 mmol/L (137-145) L 09/05/18 05:27 Potassium 4.1 mmol/L (3.6-5.0) 09/05/18 05:27 Chloride 92.8 mmol/L (98-107) L 09/05/18 05:27 Carbon Dioxide 20 mmol/L (22-30) L 09/05/18 05:27 Anion Gap 17 mmol/L 09/05/18 05:27 BUN 8 mg/dL (9-20) L 09/05/18 05:27 Creatinine 0.9 mg/dL (0.8-1.5) 09/05/18 05:27 Estimated GFR > 60 ml/min 09/05/18 05:27 BUN/Creatinine Ratio 9 % 09/05/18 05:27 Glucose 90 mg/dL (75-100) 09/05/18 05:27 Osmolality 260 Mosm/kg 09/04/18 16:06 Lactic Acid 1.10 mmol/L (0.7-2.0) 09/03/18 22:51 Calcium 7.8 mg/dL (8.4-10.2) L 09/05/18 05:27 Total Bilirubin 0.40 mg/dL (0.1-1.2) 09/05/18 05:27 Direct Bilirubin 0.2 mg/dL (0-0.2) 09/05/18 05:27 Indirect Bilirubin 0.2 mg/dL 09/05/18 05:27 AST 172 units/L (5-40) H 09/05/18 05:27 ALT 51 units/L (7-56) 09/05/18 05:27 Alkaline Phosphatase 49 units/L (35-129) 09/05/18 05:27 C-Reactive Protein 0.30 mg/dL (0.00-1.30) 09/04/18 16:06 Total Protein 5.3 g/dL (6.3-8.2) L 09/05/18 05:27 Albumin 2.7 g/dL (3.9-5) L 09/05/18 05:27 Albumin/Globulin Ratio 1.0 % 09/05/18 05:27 TSH 0.872 mlU/mL (0.270-4.200) 09/05/18 05:27 Free T4 0.66 ng/dL (0.76-1.46) L 09/05/18 05:27 Urine Color [place] (Yellow) 09/03/18 21:51 Urine Turbidity Clear (Clear) 09/03/18 21:51 Urine pH 6.0 (5.0-7.0) 09/03/18 21:51 Ur Specific [place] 1.029 (1.003-1.030) 09/03/18 21:51 Urine Protein >500 mg/dL (Negative) 09/03/18 21:51 Urine Glucose (UA) Neg mg/dL (Negative) 09/03/18 21:51 Urine Ketones Neg mg/dL (Negative) 09/03/18 21:51 Urine Blood Mod (Negative) 09/03/18 21:51 Urine Nitrite Neg (Negative) 09/03/18 21:51 Urine Bilirubin Neg (Negative) 09/03/18 21:51 Urine Urobilinogen < 2.0 mg/dL (<2.0) 09/03/18 21:51 Ur Leukocyte Esterase Neg (Negative) 09/03/18 21:51 Urine WBC (Auto) 4.0 /HPF (0.0-6.0) 09/03/18 21:51 Urine RBC (Auto) < 1.0 /HPF (0.0-6.0) 09/03/18 21:51 Urine Mucus Few /HPF 09/03/18 21:51 Urine Osmolality 637 Mosm/kg 09/05/18 04:00 Urine Creatinine 154.8 mg/dL (0.1-20.0) H 09/04/18 04:00 Protein/Creatinin Ratio 2.78 09/04/18 04:00 Urine Sodium 111 mmol/L 09/05/18 04:00 Urine Potassium 32.10 mmol/L 09/05/18 04:00 Urine Chloride 93.9 mmolL (110-250) L 09/05/18 04:00 Urine Total Protein 431 mg/dL (5-11.8) H 09/04/18 04:00 RPR Titer 1:16 09/03/18 21:46 RPR Reactive (Nonreactive) 09/03/18 21:46 Hepatitis A IgM Ab Non-reactive (NonReactive) 09/03/18 21:46 Hep Bs Antigen Non-reactive (Negative) 09/03/18 21:46 Hep B Core IgM Ab Non-reactive (NonReactive) 09/03/18 21:46 Hepatitis C Antibody Reactive (NonReactive) A 09/03/18 21:46 HIV 1&2 Antibody Rapid Non react (Non React) 09/03/18 21:46 HIV P24 Antigen Non react (Non React) 09/03/18 21:46 Influenza A (Rapid) Negative (Negative) 09/03/18 21:51 Influenza A (RT-PCR) Negative (Negative) 09/04/18 Unknown Influenza B (Rapid) Negative (Negative) 09/03/18 21:51 Influenza B (RT-PCR) Negative (Negative) 09/04/18 Unknown Active Medications - Current Medications Current Medications: Generic Name Dose Route Start Last Admin Trade Name Freq PRN Reason Stop Dose Admin Acetaminophen 650 mg 09/05/18 07:00 Tylenol PO Q4H PRN Pain MILD(1-3)/Fever >100.5/[place] Fluconazole 100 mg 09/04/18 10:00 09/04/18 09:50 Diflucan PO 100 mg QDAY MARISABEL Administration Sodium Chloride 1,000 mls @ 150 mls/hr 09/04/18 01:00 09/04/18 18:56 Nacl 0.9% 1000 Ml IV 150 mls/hr DIRECT MARISABEL Administration Ondansetron HCl 4 mg 09/04/18 00:10 Zofran IV Q4H PRN Nausea And Vomiting Oseltamivir Phosphate 75 mg 09/04/18 16:00 09/04/18 21:45 Tamiflu PO 09/08/18 22:01 75 mg BID MARISABEL Administration Oxycodone/Acetaminophen 1 tab 09/04/18 00:10 Percocet 5/325 PO Q4H PRN Pain, Moderate (4-6) Sodium Chloride 10 ml 09/04/18 10:00 09/04/18 21:46 Sodium Chloride Flush Syringe 10 Ml IV 10 ml BID MARISABEL Administration Sodium Chloride 10 ml 09/04/18 00:10 Sodium Chloride Flush Syringe 10 Ml IV PRN PRN LINE FLUSH Trimethoprim/Sulfamethoxazole 2 each 09/04/18 16:00 09/05/18 05:43 Bactrim Ds PO Not Given Q8HR MARISABEL
[2018-09-05] MEDS: NACL 0.9% 1000 ML 1,000 ML IV SCH ×3 (07:51→22:11)
[2018-09-05] MEDS: TYLENOL PO PRN (07:54)
[2018-09-05] MEDS: DIFLUCAN PO SCH (10:38)
[2018-09-05] MEDS: BACTRIM 200-40 MG/5 ML PO SCH ×2 (10:38→17:08)
[2018-09-05] MEDS: TAMIFLU PO SCH (10:38)
[2018-09-05] MEDS: SODIUM CHLORIDE FLUSH SYRINGE 10 ML IV SCH ×2 (10:39→22:22)
--- NOTE | 2018-09-05 13:50 | Progress Note ---
Assessment and Plan - Patient Problems (1) Hyponatremia Current Visit: Yes Status: Acute Plan to address problem: Unclear etiology of hyponatremia but may be secondary to decreased solute intake. There is slight improvement noted with IV fluid hydration. Urine Osm > 600, urine Na > 110, suspect also underlying SIADH. TSH normal. Cont NS for now. increase solute intake. tolvaptan contraindicated in the setting of abnormal liver function (2) Proteinuria Current Visit: Yes Status: Acute Plan to address problem: Unclear etiology but it is in the setting of microscopic hematuria, a positive hep C antibody as well as hypoalbuminemia. He does not have any edema on physical exam. urine protein/cr ratio ~2.78g/g Hep C viral load is being ordered at this time. Also undergoing evaluation for HIV. Full serologic workup for infectious disease noted at this time. (3) Transaminitis Current Visit: Yes Status: Acute Plan to address problem: Abdominal ultrasound ordered and we will follow up on results of studies. We'll also follow-up on further hep C serologies. (4) Thrombocytopenia Current Visit: Yes Status: Acute Plan to address problem: We will monitor closely. Subjective Date of service: 09/05/18 Principal diagnosis: hyponatremia Interval history: Pt awake, alert, in NAD, denies fever, chills, n/v/d, CP , SOB Objective - Vital Signs Vital signs: Vital Signs - 12hr 09/05/18 09/05/18 06:29 13:34 Temperature 101.7 F H 97.7 F Pulse Rate 89 82 Respiratory 20 15 Rate Blood Pressure 118/67 98/63 O2 Sat by Pulse 92 99 Oximetry - General Appearance General appearance: well-developed, well-nourished, appears stated age EENT: ATNC, PERRL, mucous membranes moist Neck: no JVD Respiratory: Present: Clear to Ascultation Cardiology: regular, S1S2 Gastrointestinal: normoactive bowel sounds Integumentary: no rash, other (no edema ) Neurologic: no focal deficit, alert and oriented x3, strength 5/5, CN 3-12 intact Psychiatric: mood/affect appropriate, cooperative - Lab 09/05/18 05:27 09/05/18 05:27 Most recent lab results Calcium 7.8 mg/dL (8.4-10.2) L 09/05/18 05:27 Urine Creatinine 154.8 mg/dL (0.1-20.0) H 09/04/18 04:00 Urine Sodium 111 mmol/L 09/05/18 04:00 Urine Total Protein 431 mg/dL (5-11.8) H 09/04/18 04:00 Medications & Allergies - Medications Allergies/Adverse Reactions: Allergies No Known Allergies Allergy (Unverified 06/07/13 12:19) Home Medications: Home Medications Medication Instructions Recorded Confirmed Last Taken Type No Known Home Medications [No 09/03/18 09/03/18 Unknown History Reported Home Medications] Active Medications: Generic Name Dose Route Start Last Admin Trade Name Freq PRN Reason Stop Dose Admin Acetaminophen 650 mg 09/05/18 07:00 09/05/18 07:54 Tylenol PO 650 mg Q4H PRN Administration Pain MILD(1-3)/Fever >100.5/[place] Fluconazole 100 mg 09/04/18 10:00 09/05/18 10:38 Diflucan PO 100 mg QDAY MARISABEL Administration Sodium Chloride 1,000 mls @ 150 mls/hr 09/04/18 01:00 09/05/18 07:51 Nacl 0.9% 1000 Ml IV 150 mls/hr DIRECT MARISABEL Administration Ondansetron HCl 4 mg 09/04/18 00:10 Zofran IV Q4H PRN Nausea And Vomiting Oseltamivir Phosphate 75 mg 09/04/18 16:00 09/05/18 10:38 Tamiflu PO 09/08/18 22:01 75 mg BID MRAISABEL Administration Oxycodone/Acetaminophen 1 tab 09/04/18 00:10 Percocet 5/325 PO Q4H PRN Pain, Moderate (4-6) Sodium Chloride 10 ml 09/04/18 10:00 09/05/18 10:39 Sodium Chloride Flush Syringe 10 Ml IV 10 ml BID MARISABEL Administration Sodium Chloride 10 ml 09/04/18 00:10 Sodium Chloride Flush Syringe 10 Ml IV PRN PRN LINE FLUSH Trimethoprim/Sulfamethoxazole 320 mg 09/05/18 10:30 09/05/18 10:38 Bactrim 200-40 Mg/5 Ml PO 320 mg Q8HR MARISABEL Administration
--- NOTE | 2018-09-05 15:22 | Gastroenterology Progress Note ---
Assessment and Plan - Patient Problems (1) Systemic inflammatory response syndrome (SIRS) Current Visit: Yes Status: Acute Plan to address problem: - Constellation of low platelets, elevated LFT, fevers, malaise includes autoimmune and infections causes as most likely. Syphilis, acute HIV or HCV, tick-borne illness, lupus all possible. - Will add doxycycline as this would cover tick disease and syphilis, since still very febrile, and not improved. - Further recs after HCV VL and DARVIN levels return. (2) Hepatitis C antibody test positive Current Visit: Yes Status: Acute Plan to address problem: - Viral load pending. Further recs after returns. (3) Syphilis Current Visit: Yes Status: Acute Plan to address problem: - Titer 1:16, unclear if acute or prior treatment; defer to ID. Subjective Date of service: 09/05/18 Principal diagnosis: Fever, Abnl LFTs Interval history: The patient remains febrile and anorexia, but able to eat some small amounts. He has no vomiting, and no severe abdominal pain. He is not ambulating much, but denies severe arthralgias or myalgias. Objective - Constitutional Vitals: Temp Pulse Resp BP Pulse Ox 97.7 F 82 15 98/63 99 09/05/18 13:34 09/05/18 13:34 09/05/18 13:34 09/05/18 13:34 09/05/18 13:34 General appearance: no acute distress - Respiratory Respiratory effort: normal Respiratory: bilateral: CTA - Cardiovascular Rhythm: regular Heart Sounds: Present: S1 & S2 - Extremities Extremities: no ischemia, No edema - Gastrointestinal General gastrointestinal: Present: soft, non-tender, non-distended - Labs CBC & Chem 7: 09/05/18 05:27 09/05/18 05:27 Labs: Laboratory Results - last 24 hr 09/03/18 09/04/18 09/04/18 21:46 04:00 16:06 WBC RBC Hgb Hct MCV MCH MCHC RDW Plt Count Lymph % (Auto) [place] % (Auto) Eos % (Auto) Baso % (Auto) Lymph # [place] # Eos # Baso # Seg Neutrophils % Seg Neutrophils # PT INR Sodium Potassium Chloride Carbon Dioxide Anion Gap BUN Creatinine Estimated GFR BUN/Creatinine Ratio Glucose Osmolality 260 Calcium Total Bilirubin Direct Bilirubin Indirect Bilirubin AST ALT Alkaline Phosphatase C-Reactive Protein Total Protein Albumin Albumin/Globulin Ratio TSH Free T4 Thyroxine (T4) Urine Osmolality Urine Creatinine 154.8 H Protein/Creatinin Ratio 2.78 Urine Sodium Urine Potassium Urine Chloride Urine Total Protein 431 H RPR Titer 1:16 RPR Reactive Influenza A (RT-PCR) Influenza B (RT-PCR) 09/04/18 09/04/18 09/05/18 16:06 Unknown 04:00 WBC RBC Hgb Hct MCV MCH MCHC RDW Plt Count Lymph % (Auto) [place] % (Auto) Eos % (Auto) Baso % (Auto) Lymph # [place] # Eos # Baso # Seg Neutrophils % Seg Neutrophils # PT INR Sodium Potassium Chloride Carbon Dioxide Anion Gap BUN Creatinine Estimated GFR BUN/Creatinine Ratio Glucose Osmolality Calcium Total Bilirubin Direct Bilirubin Indirect Bilirubin AST ALT Alkaline Phosphatase C-Reactive Protein 0.30 Total Protein Albumin Albumin/Globulin Ratio TSH Free T4 Thyroxine (T4) Urine Osmolality 637 Urine Creatinine Protein/Creatinin Ratio Urine Sodium 111 Urine Potassium 32.10 Urine Chloride 93.9 L Urine Total Protein RPR Titer RPR Influenza A (RT-PCR) Negative Influenza B (RT-PCR) Negative 09/05/18 09/05/18 09/05/18 05:27 05:27 05:27 WBC 4.0 L RBC 4.60 Hgb 14.0 Hct 38.7 MCV 84 MCH 30 MCHC 36 H RDW 13.2 Plt Count 68 L Lymph % (Auto) 26.8 [place] % (Auto) 4.5 Eos % (Auto) 0.0 Baso % (Auto) 0.9 Lymph # 1.1 L [place] # 0.2 Eos # 0.0 Baso # 0.0 Seg Neutrophils % 67.8 Seg Neutrophils # 2.7 PT 12.7 INR 0.90 Sodium 126 L Potassium 4.1 Chloride 92.8 L Carbon Dioxide 20 L Anion Gap 17 BUN 8 L Creatinine 0.9 Estimated GFR > 60 BUN/Creatinine Ratio 9 Glucose 90 Osmolality Calcium 7.8 L Total Bilirubin 0.40 Direct Bilirubin 0.2 Indirect Bilirubin 0.2 AST 172 H ALT 51 Alkaline Phosphatase 49 C-Reactive Protein Total Protein 5.3 L Albumin 2.7 L Albumin/Globulin Ratio 1.0 TSH Free T4 Thyroxine (T4) Urine Osmolality Urine Creatinine Protein/Creatinin Ratio Urine Sodium Urine Potassium Urine Chloride Urine Total Protein RPR Titer RPR Influenza A (RT-PCR) Influenza B (RT-PCR) 09/05/18 09/05/1809/05/19 05:27 05:27 05:57 WBC RBC Hgb Hct MCV MCH MCHC RDW Plt Count Lymph % (Auto) [place] % (Auto) Eos % (Auto) Baso % (Auto) Lymph # [place] # Eos # Baso # Seg Neutrophils % Seg Neutrophils # PT INR Sodium Potassium Chloride Carbon Dioxide Anion Gap BUN Creatinine Estimated GFR BUN/Creatinine Ratio Glucose Osmolality Calcium Total Bilirubin Direct Bilirubin Indirect Bilirubin AST ALT Alkaline Phosphatase C-Reactive Protein Total Protein Albumin Albumin/Globulin Ratio TSH 0.872 Free T4 0.66 L Thyroxine (T4) 4.4 Urine Osmolality Urine Creatinine Protein/Creatinin Ratio Urine Sodium Urine Potassium Urine Chloride Urine Total Protein RPR Titer RPR Influenza A (RT-PCR) Influenza B (RT-PCR)
[2018-09-05] MEDS: DOXYCYCLINE HYCLATE 100 MG in NACL 0.9% 250ML 250 ML IV SCH ×2 (17:10→22:11)
--- NOTE | 2018-09-05 17:34 | Progress Note ---
Assessment and Plan Cultures: 09/03/2018 blood culture: No growth 09/04/2018 cryptococcal antigen: Negative Assessment: 32 y/o man with no medical history except for tobacco and EOTH abuse, MSM; admitted on 09/03/2018 due to 2-week history of cough with yellow sputum production and chest pressure upon coughing 1) SIRS v/s sepsis: Present on admission, manifested by fever, tachycardia, hypotension, neutropenia, increased lactate. Etiology unclear. DDx Acute antiretroviral syndrome +/- acute mononucleosis +/- acute HCV v/s autoimmune. - Blood culture 09/03/2018 no growth today. - UA neg - HCV serology positive. - HBV serology negative. - HIV rapid negative and p24 Ag negative - Influenza PCR negative. - CXR neg. - CTA showed no evidence of PE, bibasilar subsegmental atelectasis greater on the left than the right and diffuse fatty infiltration of the liver 2) Recent pneumonia: seen at [facility] ED on 08/15/2018 visit showed WBC 17K, AST 213/ALT 313, bili 1.4. Blood cultures negative. CXR showed lingular and LLL pneumonia. Treated with doxycycline for 10 days. 3) Elevated LFTs: ? from HCV +/- cute antiretroviral syndrome +/- acute mononucleosis +/- acute ETOh hepatitis +/- doubt leptospirosis or autoimmune. LFTs improving. 4) History of syphilis: RPR titer is 1:16. Reports syphilis diagnosis was this year and was treated with IM PCN shot at [place]. 5) Neutropenia and throbocytopenia 7) Cough ? CXR neg. CT neg for consolidation. ?autoimmune process. Recommendations: - tamiflu discontinued - bactrim discontinued, unlikely PCP pneumonia based on CT and negative HIV. - f/u DARVIN with reflex, C3, C4 - f/u Legionella urine antigen - f/u EBV serology and EBV serum PCR, and CMV serology and EBV serum PCR - f/u HIV RNA PCR - reasonable to continue Doxycycline therapeutic trial to cover for tick borne illnesses, however patient recently did receive Doxycycline at [place] - f/u abdominal US - ordered LDH - f/u CD4 count MD [facility] C: [phone] O: [phone] F: [phone] Subjective Date of service: 09/05/18 Principal diagnosis: Fever, Abnl LFTs Interval history: Still with fevers. Reports syphilis diagnosis was this year and was treated with IM PCN shot at [place]. Has 1 dog. No other pets. Works in a [employer] center. No recent travel. No tick or mosquito bite. Having shaking chills. Cough + Objective - Exam Narrative Exam: Physical Exam: Constitutional: Alert, cooperative. shaking chills + Head, Ears, Nose: Normocephalic, atraumatic. External ears, nose normal Eyes: Conjunctivae/corneas clear. No icterus. No ptosis. Neck: Supple, no meningeal signs Oral: dentition fair, no thrush Cardiovascular: S1, S2 normal. Respiratory: Good air entry, clear to auscultation bilaterally GI: Soft, non-tender; bowel sounds normal. No peritoneal signs Musculoskeletal: No pedal edema, no cyanosis. Skin: No rash or abscess Hem/Lymphatic: No palpable cervical or supraclavicular nodes. No lymphangitis Psych: Mood ok. Affect normal Neurological: Awake, alert, oriented. No gross abnormality - Constitutional Vitals: Vital Signs Temp Pulse Resp BP Pulse Ox 97.7 F 82 15 98/63 99 09/05/18 13:34 09/05/18 13:34 09/05/18 13:34 09/05/18 13:34 09/05/18 13:34 Temperature -Last 24 Hours Temperature 97.7 F Temperature 101.7 F Temperature 102.5 F - Labs CBC & Chem 7: 09/05/18 05:27 09/05/18 05:27 Labs: Abnormal lab results 09/04/18 09/05/18 09/05/18 Range/Units 04:00 04:00 05:27 WBC 4.0 L (4.5-11.0) K/mm3 MCHC 36 H (32-34) % Plt Count 68 L (140-440) K/mm3 Lymph # 1.1 L (1.2-5.4) K/mm3 Sodium (137-145) mmol/L Chloride (98-107) mmol/L Carbon Dioxide (22-30) mmol/L BUN (9-20) mg/dL Calcium (8.4-10.2) mg/dL AST (5-40) units/L Total Protein (6.3-8.2) g/dL Albumin (3.9-5) g/dL Free T4 (0.76-1.46) ng/dL Urine Creatinine 154.8 H (0.1-20.0) mg/dL Urine Chloride 93.9 L (110-250) mmolL Urine Total Protein 431 H (5-11.8) mg/dL 09/05/18 09/05/18 Range/Units 05:27 05:27 WBC (4.5-11.0) K/mm3 MCHC (32-34) % Plt Count (140-440) K/mm3 Lymph # (1.2-5.4) K/mm3 Sodium 126 L (137-145) mmol/L Chloride 92.8 L (98-107) mmol/L Carbon Dioxide 20 L (22-30) mmol/L BUN 8 L (9-20) mg/dL Calcium 7.8 L (8.4-10.2) mg/dL AST 172 H (5-40) units/L Total Protein 5.3 L (6.3-8.2) g/dL Albumin 2.7 L (3.9-5) g/dL Free T4 0.66 L (0.76-1.46) ng/dL Urine Creatinine (0.1-20.0) mg/dL Urine Chloride (110-250) mmolL Urine Total Protein (5-11.8) mg/dL
[2018-09-05] MEDS: ZOFRAN IV PRN (18:12)
[2018-09-05] MEDS: MUCINEX ER PO SCH (22:10)
--- NOTE | 2018-09-06 00:11 | Ultrasound Report ---
PROCEDURE: US ABDOMEN COMPLETE TECHNIQUE: Real-time sonography in multiple planes of the abdomen was performed with image documenta tion. HISTORY: elevated LFTs COMPARISONS: None . FINDINGS: Liver: Normal size and echotexture with no evidence of cystic or solid mass lesions. Gallbladder: Fluid filled. No gallstones, wall thickening, pericholecystic fluid, or sonographic Mur phy's sign. Intrahepatic bile ducts: Normal caliber . Extrahepatic bile ducts: Normal caliber. Pancreas: Normal as visualized with suboptimal depiction of the pancreatic tail. Aorta: Visualized portions appear normal. IVC: Visualized portions appear normal. RIGHT kidney: Normal echotexture. No focal renal mass, calculus, or hydronephrosis. Length: 10.8 c m. LEFT kidney: Normal echotexture. No focal renal mass, calculus, or hydronephrosis. Length: 9.9 cm. Spleen: Normal size and echotexture. No focal lesions. Intraperitoneal fluid: None . Other: None . IMPRESSION: Normal Examination. This document is electronically signed by Nayana Perry DO., September 06 2018 12:10:07 AM ET
[2018-09-06] MEDS: TYLENOL PO PRN ×2 (00:45→22:27)
[2018-09-06] MEDS: ZOFRAN IV PRN (01:20)
[2018-09-06] MEDS ORDERED: TYLENOL PR ONE (01:27)
--- NOTE | 2018-09-06 09:32 | Progress Note ---
Assessment and Plan Assessment and plan: 32-year-old man who presents to the hospital with fever. He was treated at [facility] 2 weeks ago for community acquired pneumonia and was treated with antibiotics, the patient reports compliance of those antibiotics CT amgio chest; no evidence of PE diffuse fatty infiltration of the liver Labs, UA is negative for UTI, hepatitis serology is only positive for positive hep C antibody, rapid HIV is negative, rapid influenza is negative Diagnoses Fever Transaminitis Severe hyponatremia SIRS Hep C Hypochloremia Leukopenia thrombocytopenia acute HIV viral syndrome Tobacco abuse hx of syphillis, earlier this year, rx with PCN at [facility] - abx per ID -fup HIV RNA quantitative, and also obtain CD4 counts -fup hep C viral RNA, quantitative, and genotype -isotonic IVF, Nephrology consult, hyponatremia/hypochloremia likely due to hypovolemia, hyposolutemia -Patient was counseled greater than 10 minutes about tobacco cessation -DVT ppx- chemical History Interval history: Review of systems Constitutional: Patient is having high fevers and malaise CVS: No chest pain, no orthopnea, no dyspnea on exertion, no pedal edema GI: No abdominal pain, no diarrhea, no vomiting, no constipation Respiratory: No shortness of breath, no wheezing, no coughing Hospitalist Physical - Physical exam Narrative exam: General.: Appears well, no distress, toxic appearance HEENT: Moist mucous membranes, extraocular muscles intact, no lymphadenopathy Neck: supple Cardiac: S1-S2 heard Lungs: clear to auscultation bilaterally Abdomen: soft , nontender, nondistended, bowel sounds positive Extremities: no edema clubbing or cyanosis Skin: no rash or lesions Neurologic: no gross focal deficits Psych: calm, and cooperative - Constitutional Vitals: Temp Pulse Resp BP Pulse Ox 100.4 F H 86 18 108/67 91 09/06/18 06:01 09/06/18 06:01 09/06/18 06:01 09/06/18 06:01 09/06/18 06:01 Results - Labs CBC & Chem 7: 09/07/18 11:22 09/07/18 04:32 Labs: Laboratory Last Values WBC 4.0 K/mm3 (4.5-11.0) L 09/05/18 05:27 RBC 4.60 M/mm3 (3.65-5.03) 09/05/18 05:27 Hgb 14.0 gm/dl (11.8-15.2) 09/05/18 05:27 Hct 38.7 % (35.5-45.6) 09/05/18 05:27 MCV 84 fl (84-94) 09/05/18 05:27 MCH 30 pg (28-32) 09/05/18 05:27 MCHC 36 % (32-34) H 09/05/18 05:27 RDW 13.2 % (13.2-15.2) 09/05/18 05:27 Plt Count 68 K/mm3 (140-440) L 09/05/18 05:27 Lymph % (Auto) 26.8 % (13.4-35.0) 09/05/18 05:27 [place] % (Auto) 4.5 % (0.0-7.3) 09/05/18 05:27 Eos % (Auto) 0.0 % (0.0-4.3) 09/05/18 05:27 Baso % (Auto) 0.9 % (0.0-1.8) 09/05/18 05:27 Lymph # 1.1 K/mm3 (1.2-5.4) L 09/05/18 05:27 [place] # 0.2 K/mm3 (0.0-0.8) 09/05/18 05:27 Eos # 0.0 K/mm3 (0.0-0.4) 09/05/18 05:27 Baso # 0.0 K/mm3 (0.0-0.1) 09/05/18 05:27 Add Manual Diff Complete 09/04/18 09:56 Total Counted 100 09/04/18 09:56 Seg Neutrophils % 67.8 % (40.0-70.0) 09/05/18 05:27 Seg Neuts % (Manual) 90.0 % (40.0-70.0) H 09/04/18 09:56 Band Neutrophils % 3.0 % 09/04/18 09:56 Lymphocytes % (Manual) 7.0 % (13.4-35.0) L 09/04/18 09:56 Reactive Lymphs % (Man) 0 % 09/04/18 09:56 Monocytes % (Manual) 0 % (0.0-7.3) 09/04/18 09:56 Eosinophils % (Manual) 0 % (0.0-4.3) 09/04/18 09:56 Basophils % (Manual) 0 % (0.0-1.8) 09/04/18 09:56 Metamyelocytes % 0 % 09/04/18 09:56 Myelocytes % 0 % 09/04/18 09:56 Promyelocytes % 0 % 09/04/18 09:56 Blast Cells % 0 % 09/04/18 09:56 Nucleated RBC % Not Reportable 09/04/18 09:56 Seg Neutrophils # 2.7 K/mm3 (1.8-7.7) 09/05/18 05:27 Seg Neutrophils # Man 1.7 K/mm3 (1.8-7.7) L 09/04/18 09:56 Band Neutrophils # 0.1 K/mm3 09/04/18 09:56 Lymphocytes # (Manual) 0.1 K/mm3 (1.2-5.4) L 09/04/18 09:56 Abs React Lymphs (Man) 0.0 K/mm3 09/04/18 09:56 Monocytes # (Manual) 0.0 K/mm3 (0.0-0.8) 09/04/18 09:56 Eosinophils # (Manual) 0.0 K/mm3 (0.0-0.4) 09/04/18 09:56 Basophils # (Manual) 0.0 K/mm3 (0.0-0.1) 09/04/18 09:56 Metamyelocytes # 0.0 K/mm3 09/04/18 09:56 Myelocytes # 0.0 K/mm3 09/04/18 09:56 Promyelocytes # 0.0 K/mm3 09/04/18 09:56 Blast Cells # 0.0 K/mm3 09/04/18 09:56 WBC Morphology Not Reportable 09/04/18 09:56 Hypersegmented Neuts Not Reportable 09/04/18 09:56 Hyposegmented Neuts Not Reportable 09/04/18 09:56 Hypogranular Neuts Not Reportable 09/04/18 09:56 Smudge Cells Not Reportable 09/04/18 09:56 Toxic Granulation Not Reportable 09/04/18 09:56 Toxic Vacuolation Not Reportable 09/04/18 09:56 Dohle Bodies Not Reportable 09/04/18 09:56 Pelger-Huet Anomaly Not Reportable 09/04/18 09:56 Rain Rods Not Reportable 09/04/18 09:56 Platelet Estimate Consistent w auto 09/04/18 09:56 Clumped Platelets Not Reportable 09/04/18 09:56 Plt Clumps, EDTA Not Reportable 09/04/18 09:56 Large Platelets Not Reportable 09/04/18 09:56 Giant Platelets Not Reportable 09/04/18 09:56 Platelet Satelliting Not Reportable 09/04/18 09:56 Plt Morphology Comment Not Reportable 09/04/18 09:56 RBC Morphology Normal 09/04/18 09:56 Dimorphic RBCs Not Reportable 09/04/18 09:56 Polychromasia Not Reportable 09/04/18 09:56 Hypochromasia Not Reportable 09/04/18 09:56 Poikilocytosis Not Reportable 09/04/18 09:56 Anisocytosis Not Reportable 09/04/18 09:56 Microcytosis Not Reportable 09/04/18 09:56 Macrocytosis Not Reportable 09/04/18 09:56 Spherocytes Not Reportable 09/04/18 09:56 Pappenheimer Bodies Not Reportable 09/04/18 09:56 Sickle Cells Not Reportable 09/04/18 09:56 Target Cells Not Reportable 09/04/18 09:56 Tear Drop Cells Not Reportable 09/04/18 09:56 Ovalocytes Not Reportable 09/04/18 09:56 Helmet Cells Not Reportable 09/04/18 09:56 [place] Bodies Not Reportable 09/04/18 09:56 [place] Rings Not Reportable 09/04/18 09:56 [place] Cells Not Reportable 09/04/18 09:56 Bite Cells Not Reportable 09/04/18 09:56 Crenated Cell Not Reportable 09/04/18 09:56 Elliptocytes Not Reportable 09/04/18 09:56 Acanthocytes (Spur) Not Reportable 09/04/18 09:56 Rouleaux Not Reportable 09/04/18 09:56 Hemoglobin C Crystals Not Reportable 09/04/18 09:56 Schistocytes Not Reportable 09/04/18 09:56 Malaria parasites Not Reportable 09/04/18 09:56 Cain Bodies Not Reportable 09/04/18 09:56 Hem Pathologist Commnt No 09/04/18 09:56 PT 12.7 Sec. (12.2-14.9) 09/05/18 05:27 INR 0.90 (0.87-1.13) 09/05/18 05:27 Sodium 126 mmol/L (137-145) L 09/05/18 05:27 Potassium 4.1 mmol/L (3.6-5.0) 09/05/18 05:27 Chloride 92.8 mmol/L (98-107) L 09/05/18 05:27 Carbon Dioxide 20 mmol/L (22-30) L 09/05/18 05:27 Anion Gap 17 mmol/L 09/05/18 05:27 BUN 8 mg/dL (9-20) L 09/05/18 05:27 Creatinine 0.9 mg/dL (0.8-1.5) 09/05/18 05:27 Estimated GFR > 60 ml/min 09/05/18 05:27 BUN/Creatinine Ratio 9 % 09/05/18 05:27 Glucose 90 mg/dL (75-100) 09/05/18 05:27 Osmolality 260 Mosm/kg 09/04/18 16:06 Lactic Acid 1.10 mmol/L (0.7-2.0) 09/03/18 22:51 Calcium 7.8 mg/dL (8.4-10.2) L 09/05/18 05:27 Total Bilirubin 0.40 mg/dL (0.1-1.2) 09/05/18 05:27 Direct Bilirubin 0.2 mg/dL (0-0.2) 09/05/18 05:27 Indirect Bilirubin 0.2 mg/dL 09/05/18 05:27 AST 172 units/L (5-40) H 09/05/18 05:27 ALT 51 units/L (7-56) 09/05/18 05:27 Alkaline Phosphatase 49 units/L (35-129) 09/05/18 05:27 Lactate Dehydrogenase 515 units/L (91-180) H 09/06/18 07:11 C-Reactive Protein 0.30 mg/dL (0.00-1.30) 09/04/18 16:06 Total Protein 5.3 g/dL (6.3-8.2) L 09/05/18 05:27 Albumin 2.7 g/dL (3.9-5) L 09/05/18 05:27 Albumin/Globulin Ratio 1.0 % 09/05/18 05:27 TSH 0.872 mlU/mL (0.270-4.200) 09/05/18 05:27 Free T4 0.66 ng/dL (0.76-1.46) L 09/05/18 05:27 Thyroxine (T4) 4.4 ug/dL (4.0-12.0) 09/05/18 05:57 Urine Color Marlene (Yellow) 09/03/18 21:51 Urine Turbidity Clear (Clear) 09/03/18 21:51 Urine pH 6.0 (5.0-7.0) 09/03/18 21:51 Ur Specific [place] 1.029 (1.003-1.030) 09/03/18 21:51 Urine Protein >500 mg/dL (Negative) 09/03/18 21:51 Urine Glucose (UA) Neg mg/dL (Negative) 09/03/18 21:51 Urine Ketones Neg mg/dL (Negative) 09/03/18 21:51 Urine Blood Mod (Negative) 09/03/18 21:51 Urine Nitrite Neg (Negative) 09/03/18 21:51 Urine Bilirubin Neg (Negative) 09/03/18 21:51 Urine Urobilinogen < 2.0 mg/dL (<2.0) 09/03/18 21:51 Ur Leukocyte Esterase Neg (Negative) 09/03/18 21:51 Urine WBC (Auto) 4.0 /HPF (0.0-6.0) 09/03/18 21:51 Urine RBC (Auto) < 1.0 /HPF (0.0-6.0) 09/03/18 21:51 Urine Mucus Few /HPF 09/03/18 21:51 Urine Osmolality 637 Mosm/kg 09/05/18 04:00 Urine Creatinine 154.8 mg/dL (0.1-20.0) H 09/04/18 04:00 Protein/Creatinin Ratio 2.78 09/04/18 04:00 Urine Sodium 111 mmol/L 09/05/18 04:00 Urine Potassium 32.10 mmol/L 09/05/18 04:00 Urine Chloride 93.9 mmolL (110-250) L 09/05/18 04:00 Urine Total Protein 431 mg/dL (5-11.8) H 09/04/18 04:00 RPR Titer 1:16 09/03/18 21:46 RPR Reactive (Nonreactive) 09/03/18 21:46 Hepatitis A IgM Ab Non-reactive (NonReactive) 09/03/18 21:46 Hep Bs Antigen Non-reactive (Negative) 09/03/18 21:46 Hep B Core IgM Ab Non-reactive (NonReactive) 09/03/18 21:46 Hepatitis C Antibody Reactive (NonReactive) A 09/03/18 21:46 HIV 1&2 Antibody Rapid Non react (Non React) 09/03/18 21:46 HIV P24 Antigen Non react (Non React) 09/03/18 21:46 Influenza A (Rapid) Negative (Negative) 09/03/18 21:51 Influenza A (RT-PCR) Negative (Negative) 09/04/18 Unknown Influenza B (Rapid) Negative (Negative) 09/03/18 21:51 Influenza B (RT-PCR) Negative (Negative) 09/04/18 Unknown Active Medications - Current Medications Current Medications: Generic Name Dose Route Start Last Admin Trade Name Freq PRN Reason Stop Dose Admin Acetaminophen 650 mg 09/05/18 07:00 09/06/18 00:45 Tylenol PO 650 mg Q4H PRN Administration Pain MILD(1-3)/Fever >100.5/[place] Fluconazole 100 mg 09/04/18 10:00 09/05/18 10:38 Diflucan PO 100 mg QDAY MARISABEL Administration Guaifenesin 1,200 mg 09/05/18 22:00 09/05/18 22:10 Mucinex Er PO 1,200 mg BID MARISABEL Administration Sodium Chloride 1,000 mls @ 150 mls/hr 09/04/18 01:00 09/05/18 22:11 Nacl 0.9% 1000 Ml IV 150 mls/hr DIRECT MARISABEL Administration Doxycycline Hyclate 100 mg/ 250 mls @ 250 mls/hr 09/05/18 16:00 09/05/18 22 :11 Sodium Chloride IV 250 mls/hr Q12HR MARISABEL Administration Protocol Ondansetron HCl 4 mg 09/04/18 00:10 09/06/18 01:20 Zofran IV 4 mg Q4H PRN Administration Nausea And Vomiting Oxycodone/Acetaminophen 1 tab 09/04/18 00:10 09/05/18 22:22 Percocet 5/325 PO 1 tab Q4H PRN Administration Pain, Moderate (4-6) Sodium Chloride 10 ml 09/04/18 10:00 09/05/18 22:22 Sodium Chloride Flush Syringe 10 Ml IV 10 ml BID MARISABEL Administration Sodium Chloride 10 ml 09/04/18 00:10 Sodium Chloride Flush Syringe 10 Ml IV PRN PRN LINE FLUSH
[2018-09-06] MEDS: MUCINEX ER PO SCH ×2 (09:38→21:30)
[2018-09-06] MEDS: NACL 0.9% 1000 ML 1,000 ML IV SCH ×2 (09:38→18:19)
[2018-09-06] MEDS: DIFLUCAN PO SCH (09:39)
[2018-09-06] MEDS: SODIUM CHLORIDE FLUSH SYRINGE 10 ML IV SCH ×2 (09:42→21:32)
[2018-09-06] MEDS: DOXYCYCLINE HYCLATE 100 MG in NACL 0.9% 250ML 250 ML IV SCH ×2 (10:20→21:29)
[2018-09-06] MEDS ORDERED: VASELINE LIP THERAPY TP PRN (10:21)
--- NOTE | 2018-09-06 11:46 | Progress Note ---
Assessment and Plan - Patient Problems (1) Hyponatremia Current Visit: Yes Status: Acute Plan to address problem: Unclear etiology of hyponatremia but may be secondary to decreased solute intake. There is slight improvement noted with IVS. Urine Osm > 600, urine Na > 110, suspect also underlying SIADH. TSH normal. Cont NS for now. increase solute intake. tolvaptan contraindicated in the setting of abnormal liver function. Will monitor lytes closely and adjust IV NS accordingly (2) Proteinuria Current Visit: Yes Status: Acute Plan to address problem: Unclear etiology but it is in the setting of microscopic hematuria, a positive hep C antibody as well as hypoalbuminemia. He does not have any edema on physical exam. urine protein/cr ratio ~2.78g/g Hep C viral load is being ordered at this time. Also undergoing evaluation for HIV. Full serologic workup for infectious disease noted at this time. (3) Transaminitis Current Visit: Yes Status: Acute Plan to address problem: Abdominal ultrasound ordered and we will follow up on results of studies. We'll also follow-up on further hep C serologies. (4) Thrombocytopenia Current Visit: Yes Status: Acute Plan to address problem: We will monitor closely. Subjective Date of service: 09/06/18 Principal diagnosis: Fever, Abnl LFTs Interval history: Pt awake, alert, in NAD, denies fever, chills, n/v/d, CP , SOB Objective - Vital Signs Vital signs: Vital Signs - 12hr 09/06/18 09/06/18 09/06/18 00:31 03:41 06:01 Temperature 102.5 F H 100.2 F H 100.4 F H Pulse Rate 96 H 86 Respiratory 18 18 Rate Blood Pressure 100/55 108/67 O2 Sat by Pulse 81 L 91 Oximetry - General Appearance General appearance: well-developed, well-nourished, appears stated age EENT: ATNC, PERRL, mucous membranes moist Neck: no JVD Respiratory: Present: Clear to Ascultation Cardiology: regular, S1S2 Gastrointestinal: normoactive bowel sounds Integumentary: no rash Neurologic: no focal deficit, alert and oriented x3, strength 5/5, CN 3-12 intact Psychiatric: mood/affect appropriate, cooperative - Lab 09/05/18 05:27 09/05/18 05:27 Most recent lab results Calcium 7.8 mg/dL (8.4-10.2) L 09/05/18 05:27 Urine Creatinine 154.8 mg/dL (0.1-20.0) H 09/04/18 04:00 Urine Sodium 111 mmol/L 09/05/18 04:00 Urine Total Protein 431 mg/dL (5-11.8) H 09/04/18 04:00 Medications & Allergies - Medications Allergies/Adverse Reactions: Allergies No Known Allergies Allergy (Unverified 06/07/13 12:19) Home Medications: Home Medications Medication Instructions Recorded Confirmed Last Taken Type No Known Home Medications [No 09/03/18 09/03/18 Unknown History Reported Home Medications] Active Medications: Generic Name Dose Route Start Last Admin Trade Name Freq PRN Reason Stop Dose Admin Acetaminophen 650 mg 09/05/18 07:00 09/06/18 00:45 Tylenol PO 650 mg Q4H PRN Administration Pain MILD(1-3)/Fever >100.5/[place] Fluconazole 100 mg 09/04/18 10:00 09/06/18 09:39 Diflucan PO 100 mg QDAY MARISABEL Administration Guaifenesin 1,200 mg 09/05/18 22:00 09/06/18 09:38 Mucinex Er PO 1,200 mg BID MARISABEL Administration Hydrophilic Ointment 1 applic 09/06/18 10:21 Vaseline Lip Therapy TP DIRECT PRN Dry Lips Sodium Chloride 1,000 mls @ 150 mls/hr 09/04/18 01:00 09/06/18 09:38 Nacl 0.9% 1000 Ml IV 150 mls/hr DIRECT MARISABEL Administration Doxycycline Hyclate 100 mg/ 250 mls @ 250 mls/hr 09/05/18 16:00 09/06/18 10:20 Sodium Chloride IV 250 mls/hr Q12HR MARISABEL Administration Protocol Ondansetron HCl 4 mg 09/04/18 00:10 09/06/18 01:20 Zofran IV 4 mg Q4H PRN Administration Nausea And Vomiting Oxycodone/Acetaminophen 1 tab 09/04/18 00:10 09/05/18 22:22 Percocet 5/325 PO 1 tab Q4H PRN Administration Pain, Moderate (4-6) Sodium Chloride 10 ml 09/04/18 10:00 09/06/18 09:42 Sodium Chloride Flush Syringe 10 Ml IV 10 ml BID MARISABEL Administration Sodium Chloride 10 ml 09/04/18 00:10 Sodium Chloride Flush Syringe 10 Ml IV PRN PRN LINE FLUSH
[2018-09-06] MEDS ORDERED: ATIVAN IV PRN (13:01)
[2018-09-06] MEDS ORDERED: ATIVAN PO PRN (13:01)
[2018-09-06] MEDS ORDERED: Centrum Liq PO SCH (14:00)
[2018-09-06] MEDS ORDERED: PERCOCET 5/325 PO PRN (15:27)
--- NOTE | 2018-09-06 15:30 | Gastroenterology Progress Note ---
Assessment and Plan - Patient Problems (1) Systemic inflammatory response syndrome (SIRS) Current Visit: Yes Status: Acute Plan to address problem: - Constellation of low platelets, elevated LFT, fevers, malaise includes autoimmune and infections causes as most likely. Syphilis, acute HIV or HCV, tick-borne illness, lupus all possible. - Continues on therapeutic trial of doxycycline. - Further recs after HCV VL and DARVIN levels return. - Will also check CPK in AM given elevated AST in absence of other LFTs (though does have a hx of significant EtOH). (2) Hepatitis C antibody test positive Current Visit: Yes Status: Acute Plan to address problem: - Viral load pending. Further recs after returns. (3) Syphilis Current Visit: Yes Status: Acute Subjective Date of service: 09/06/18 Principal diagnosis: Fever, Abnl LFTs Interval history: The patient has not had a fever since midnight, and is now tolerating more of his diet (mostly protein shakes). He has no CP but does have mild SOB (is able to walk without O2). He has no severe abdominal pain. There is no blood in the stools. Objective - Constitutional Vitals: Temp Pulse Resp BP Pulse Ox 98.2 F 113 H 20 136/78 92 09/06/18 12:54 09/06/18 12:54 09/06/18 12:54 09/06/18 12:54 09/06/18 12:54 General appearance: no acute distress - EENT Eyes: PERRL, EOM intact ENT: hearing intact, clear oral mucosa - Respiratory Respiratory effort: normal Respiratory: bilateral: CTA - Cardiovascular Rhythm: regular Heart Sounds: Present: S1 & S2 - Gastrointestinal General gastrointestinal: Present: soft, non-tender, non-distended - Labs CBC & Chem 7: 09/05/18 05:27 09/05/18 05:27 Labs: Laboratory Results - last 24 hr 09/06/18 07:11 Lactate Dehydrogenase 515 H
[2018-09-06 17:11] LABS: Hemoglobin 13.1 gm/dl (11.8-15.2)
[2018-09-06 17:20] LABS: INR 0.87 (0.87-1.13)
[2018-09-06 17:21] LABS: Partial Thromboplastin Time 35.6 Sec. (24.2-36.6)
[2018-09-06] MEDS: LOVENOX SUB-Q SCH (21:30)
[2018-09-07] MEDS: NACL 0.9% 1000 ML 1,000 ML IV SCH ×2 (05:04→14:34)
[2018-09-07 05:19] LABS: BUN/Creatinine Ratio 9; Blood Urea Nitrogen 6 mg/dL (9-20); Hemolysis Index 10
[2018-09-07 05:24] LABS: BUN/Creatinine Ratio 9; Blood Urea Nitrogen 6 mg/dL (9-20); Calcium 8.1 mg/dL (8.4-10.2); Hemolysis Index 9
[2018-09-07 05:25] LABS: Alanine Aminotransferase 40 units/L (7-56); Albumin 2.4 g/dL (3.9-5); BUN/Creatinine Ratio 9; Blood Urea Nitrogen 6 mg/dL (9-20); Hemolysis Index 6
--- NOTE | 2018-09-07 09:58 | Progress Note ---
Assessment and Plan - Patient Problems (1) Hyponatremia Current Visit: Yes Status: Acute Plan to address problem: Unclear etiology of hyponatremia but may be secondary to decreased solute intake. Na improving on IVF, cont NS at 75ml/hr (2) Proteinuria Current Visit: Yes Status: Acute Plan to address problem: Unclear etiology but it is in the setting of microscopic hematuria, a positive hep C antibody as well as hypoalbuminemia. hep C related MPGN cannot be ruled out. He does not have any edema on physical exam. urine protein/cr ratio ~2.78g/g. Hep C viral load pending. Also undergoing evaluation for HIV. (3) Transaminitis Current Visit: Yes Status: Acute Plan to address problem: Abd US was normal. We'll also follow-up on further hep C serologies. (4) Thrombocytopenia Current Visit: Yes Status: Acute Plan to address problem: stable Subjective Date of service: 09/07/18 Principal diagnosis: Fever, Abnl LFTs Interval history: Pt awake, alert, in NAD, denies fever, chills, n/v/d, CP , SOB Objective - Vital Signs Vital signs: Vital Signs - 12hr 09/06/18 09/06/18 09/06/18 21:56 22:16 23:27 Temperature 100.7 F H Pulse Rate 107 H Respiratory 24 Rate Blood Pressure 127/75 [Left] O2 Sat by Pulse 96 92 Oximetry 09/07/18 09/07/18 05:03 09:16 Temperature 98.3 F Pulse Rate 88 Respiratory Rate Blood Pressure 131/77 [Left] O2 Sat by Pulse 95 Oximetry - General Appearance General appearance: well-developed, well-nourished, appears stated age EENT: ATNC, PERRL, mucous membranes moist Neck: no JVD Respiratory: Present: Clear to Ascultation Cardiology: regular, S1S2 Gastrointestinal: normoactive bowel sounds Integumentary: no rash, other (no edema ) Neurologic: no focal deficit, alert and oriented x3, strength 5/5, CN 3-12 intact Psychiatric: mood/affect appropriate, cooperative - Lab 09/06/18 16:49 09/07/18 04:32 Most recent lab results Calcium 8.0 mg/dL (8.4-10.2) L 09/07/18 04:32 Urine Creatinine 154.8 mg/dL (0.1-20.0) H 09/04/18 04:00 Urine Sodium 111 mmol/L 09/05/18 04:00 Urine Total Protein 431 mg/dL (5-11.8) H 09/04/18 04:00 Medications & Allergies - Medications Allergies/Adverse Reactions: Allergies No Known Allergies Allergy (Unverified 06/07/13 12:19) Home Medications: Home Medications Medication Instructions Recorded Confirmed Last Taken Type No Known Home Medications [No 09/03/18 09/03/18 Unknown History Reported Home Medications] Active Medications: Generic Name Dose Route Start Last Admin Trade Name Freq PRN Reason Stop Dose Admin Acetaminophen 650 mg 09/06/18 15:27 09/06/18 22:27 Tylenol PO 650 mg Q6H PRN Administration Pain MILD(1-3)/Fever >100.5/[place] Enoxaparin Sodium 40 mg 09/06/18 22:00 09/06/18 21:30 Lovenox SUB-Q 40 mg QDAY@2200 MARISABEL Administration Fluconazole 100 mg 09/04/18 10:00 09/06/18 09:39 Diflucan PO 100 mg QDAY MARISABEL Administration Guaifenesin 1,200 mg 09/05/18 22:00 09/06/18 21:30 Mucinex Er PO 1,200 mg BID MARISABEL Administration Hydrophilic Ointment 1 applic 09/06/18 10:21 Vaseline Lip Therapy TP DIRECT PRN Dry Lips Sodium Chloride 1,000 mls @ 150 mls/hr 09/04/18 01:00 09/07/18 05:04 Nacl 0.9% 1000 Ml IV 150 mls/hr DIRECT MARISABEL Administration Doxycycline Hyclate 100 mg/ 250 mls @ 250 mls/hr 09/05/18 16:00 09/06/18 21:29 Sodium Chloride IV 250 mls/hr Q12HR MARISABEL Administration Protocol Lorazepam 2 mg 09/06/18 13:01 Ativan PO Q1H PRN CIWA-Ar 8-15 Lorazepam 4 mg 09/06/18 13:01 Ativan IV Q1H PRN CIWA-Ar 16-25 Lorazepam 4 mg 09/06/18 13:01 Ativan IV Q15MIN PRN CIWA-Ar >25 Multivitamins 1 each 09/07/18 10:00 Theragran Tab PO QDAY MARISABEL Ondansetron HCl 4 mg 09/04/18 00:10 09/06/18 01:20 Zofran IV 4 mg Q4H PRN Administration Nausea And Vomiting Oxycodone/Acetaminophen 1 tab 09/06/18 15:27 Percocet 5/325 PO Q6H PRN Pain, Moderate (4-6) Sodium Chloride 10 ml 09/04/18 10:00 09/06/18 21:32 Sodium Chloride Flush Syringe 10 Ml IV 10 ml BID MARISABEL Administration Sodium Chloride 10 ml 09/04/18 00:10 Sodium Chloride Flush Syringe 10 Ml IV PRN PRN LINE FLUSH
--- NOTE | 2018-09-07 11:02 | Progress Note ---
Assessment and Plan Cultures: 09/03/2018 blood culture: No growth 09/04/2018 cryptococcal antigen: Negative Assessment: 32 y/o man with no medical history except for tobacco and EOTH abuse, MSM; admitted on 09/03/2018 due to 2-week history of cough with yellow sputum production and chest pressure upon coughing 1) SIRS v/s sepsis: Fevers continuing. Etiology unclear. DDx PJP, CAP +/- Acute antiretroviral syndrome +/- acute mononucleosis +/- acute HCV +/- less tick borne. Doubt autoimmune in light of low CRP. - Blood culture 09/03/2018 no growth today. - UA neg - HCV serology positive. - HBV serology negative. - HIV rapid negative and p24 Ag negative - Influenza PCR negative. - CXR neg. - CTA showed no evidence of PE, bibasilar subsegmental atelectasis greater on the left than the right and diffuse fatty infiltration of the liver - LDH - 515 - CRP - .30 2) Recent pneumonia: seen at [facility] ED on 08/15/2018 visit showed WBC 17K, AST 213/ALT 313, bili 1.4. Blood cultures negative. CXR showed lingular and LLL pneumonia. Treated with doxycycline for 10 days. 3) Elevated LFTs: ? from HCV +/- cute antiretroviral syndrome +/- acute mononucleosis +/- acute ETOh hepatitis +/- doubt leptospirosis or autoimmune. LFTs improving. 4) History of syphilis: RPR titer is 1:16. Reports syphilis diagnosis was this year and was treated with IM PCN shot at [place]. 5) Neutropenia and throbocytopenia: continuing 7) Cough with Tachypnea: CXR neg. CT neg for consolidation.? CAP Recommendations: - f/u DARVIN with reflex, C3, C4 - f/u Legionella urine antigen - f/u EBV serology and EBV serum PCR, and CMV serology and EBV serum PCR - f/u HIV RNA PCR - continue Doxycycline 100 mg IV every 12 hours- therapeutic trial to cover for tick borne illnesses, - continue fluconazole 100mg PO every 24 hours - Add Ceftriaxone 2gm IV every 24 hours and Levofloxacin 750mg IV every 24 hours [facility] M: [phone] O:[phone] Subjective Date of service: 09/07/18 Principal diagnosis: Fever, Abnl LFTs Interval history: Patient seen and examined. Increased WOB, mild distress observed. Denied generalized pain. Fevers continuing. Mother at bedside. Objective - Exam Narrative Exam: Constitutional: Alert, cooperative. increased WOB. Head, Ears, Nose: Normocephalic, atraumatic. External ears, nose normal Eyes: Conjunctivae/corneas clear. No icterus. No ptosis. Neck: Supple, no meningeal signs Oral: dentition fair, no thrush Cardiovascular: S1, S2 normal. Respiratory: Good air entry, Bilateral Rhonci, +Cough, +tachypnea GI: Soft, non-tender; bowel sounds normal. No peritoneal signs Musculoskeletal: No pedal edema, no cyanosis. Skin: No rash or abscess Hem/Lymphatic: No palpable cervical or supraclavicular nodes. No lymphangitis Psych: Mood ok. Affect flat Neurological: Awake, alert, oriented. No gross abnormalit - Constitutional Vitals: Vital Signs Temp Pulse Resp BP Pulse Ox 98.3 F 88 24 131/77 95 09/07/18 05:03 09/07/18 05:03 09/06/18 23:27 09/07/18 05:03 09/07/18 09:16 Temperature -Last 24 Hours Temperature 98.3 F Temperature 100.7 F Temperature 98.3 F Temperature 98.2 F - Labs CBC & Chem 7: 09/07/18 11:22 09/07/18 04:32 Labs: Abnormal lab results 09/06/18 09/07/18 09/07/18 Range/Units 16:49 04:32 04:32 Plt Count 79 L (140-440) K/mm3 Sodium 130 L 131 L (137-145) mmol/L Chloride 97.7 L (98-107) mmol/L Carbon Dioxide 21 L (22-30) mmol/L BUN 6 L 6 L (9-20) mg/dL Creatinine 0.7 L 0.7 L (0.8-1.5) mg/dL Glucose 109 H 112 H (75-100) mg/dL Calcium 8.0 L 8.1 L (8.4-10.2) mg/dL AST (5-40) units/L Total Creatine Kinase (55-170) units/L Total Protein (6.3-8.2) g/dL Albumin (3.9-5) g/dL 09/07/18 Range/Units 04:32 Plt Count (140-440) K/mm3 Sodium 130 L (137-145) mmol/L Chloride (98-107) mmol/L Carbon Dioxide 21 L (22-30) mmol/L BUN 6 L (9-20) mg/dL Creatinine 0.7 L (0.8-1.5) mg/dL Glucose 111 H (75-100) mg/dL Calcium 8.0 L (8.4-10.2) mg/dL AST 131 H (5-40) units/L Total Creatine Kinase 1459 H (55-170) units/L Total Protein 5.3 L (6.3-8.2) g/dL Albumin 2.4 L (3.9-5) g/dL
[2018-09-07] MEDS: THERAGRAN Tab PO SCH (11:15)
[2018-09-07] MEDS: MUCINEX ER PO SCH ×2 (11:15→23:16)
[2018-09-07] MEDS: DIFLUCAN PO SCH (11:16)
[2018-09-07] MEDS: SODIUM CHLORIDE FLUSH SYRINGE 10 ML IV SCH ×2 (11:17→23:17)
[2018-09-07] MEDS: DOXYCYCLINE HYCLATE 100 MG in NACL 0.9% 250ML 250 ML IV SCH ×2 (11:17→23:16)
[2018-09-07 11:48] LABS: Basophils % (Auto) 0.6 % (0.0-1.8); Eosinophils % (Auto) 0.2 % (0.0-4.3); Lymphocytes # (Auto) 0.6 K/mm3 (1.2-5.4); Lymphocytes % (Auto) 17.8 % (13.4-35.0); Mean Corpuscular HGB Conc 36 % (32-34); Mean Corpuscular Volume 84 fl (84-94); Monocytes # (Auto) 0.5 K/mm3 (0.0-0.8); Monocytes % (Auto) 14.7 % (0.0-7.3); Red Blood Count 4.22 M/mm3 (3.65-5.03); Red Cell Distribution Width 13.1 % (13.2-15.2)
[2018-09-07 11:56] LABS: Hematocrit 35.4 % (35.5-45.6); Hemoglobin 12.8 gm/dl (11.8-15.2)
--- NOTE | 2018-09-07 12:19 | Gastroenterology Progress Note ---
Assessment and Plan 1.elevated LFTs 2.hepatitis C antibody positive -afebrile -WBC 3.5-trending up -H/H ENL -plt 79 -INR WNL (0.87) -LFTs- T.jaycob 0.70, AST 131, ALT 40, alk phos 55-trending down -hepatitis panel- +hepatitis C antibody -CT chest showed fatty infiltration of the liver -abd U/S showed liver normal -etiology-likely 2/2 alcohol and hep C -clinically, patient is w/o GI complaints. Denies abd pain or N/V. No active signs of bleeding. Tolerating diet. No encephalopathy noted upon exam. -HCV RNA and genotype pending -continue to trend labs and supportive care -electrolyte management per primary team -further recommendations pending on above results -will follow 3.SIRS - Constellation of low platelets, elevated LFT, fevers, malaise includes autoimmune and infections causes as most likely. Syphilis, acute HIV or HCV, tick-borne illness, lupus all possible. - Continues on therapeutic trial of doxycycline. - Further recs after HCV VL and DARVIN levels return. 4.syphilis 5.leukopenia 6.thrombocytopenia 7.hyponatremia Subjective Date of service: 09/07/18 Principal diagnosis: Hepatitis C Interval history: No acute distress or GI complaints. Denies abd pain, N/v, or signs of bleeding. Tolerating diet. Objective - Constitutional Vitals: Temp Pulse Resp BP Pulse Ox 98.3 F 88 24 131/77 95 09/07/18 05:03 09/07/18 05:03 09/06/18 23:27 09/07/18 05:03 09/07/18 09:16 General appearance: no acute distress - Respiratory Respiratory: bilateral: diminished - Cardiovascular Rhythm: regular - Gastrointestinal General gastrointestinal: Present: soft, non-tender, tender, normal bowel sounds - Neurologic Neurological: alert and oriented x3 - Labs CBC & Chem 7: 09/07/18 11:22 09/07/18 04:32 Labs: Laboratory Results - last 24 hr 09/06/18 09/06/18 09/07/18 16:49 16:49 04:32 WBC RBC Hgb 13.1 Hct 36.0 MCV MCH MCHC RDW Plt Count 79 L Lymph % (Auto) [place] % (Auto) Eos % (Auto) Baso % (Auto) Lymph # [place] # Eos # Baso # Seg Neutrophils % Seg Neutrophils # PT 12.4 INR 0.87 APTT 35.6 Sodium 130 L Potassium 4.4 Chloride 97.7 L Carbon Dioxide 21 L Anion Gap 16 BUN 6 L Creatinine 0.7 L Estimated GFR > 60 BUN/Creatinine Ratio 9 Glucose 109 H Calcium 8.0 L Total Bilirubin AST ALT Alkaline Phosphatase Ammonia Total Creatine Kinase Total Protein Albumin Albumin/Globulin Ratio 09/07/18 09/07/18 09/07/18 04:32 04:32 04:32 WBC RBC Hgb Hct MCV MCH MCHC RDW Plt Count Lymph % (Auto) [place] % (Auto) Eos % (Auto) Baso % (Auto) Lymph # [place] # Eos # Baso # Seg Neutrophils % Seg Neutrophils # PT INR APTT Sodium 131 L 130 L Potassium 4.5 4.5 Chloride 98.7 98.5 Carbon Dioxide 22 21 L Anion Gap 15 15 BUN 6 L 6 L Creatinine 0.7 L 0.7 L Estimated GFR > 60 > 60 BUN/Creatinine Ratio 9 9 Glucose 112 H 111 H Calcium 8.1 L 8.0 L Total Bilirubin 0.70 AST 131 H ALT 40 Alkaline Phosphatase 55 Ammonia 42.0 Total Creatine Kinase 1459 H Total Protein 5.3 L Albumin 2.4 L Albumin/Globulin Ratio 0.8 09/07/18 11:22 WBC 3.5 L RBC 4.22 Hgb 12.8 Hct 35.4 L MCV 84 MCH 30 MCHC 36 H RDW 13.1 L Plt Count Lymph % (Auto) 17.8 [place] % (Auto) 14.7 H Eos % (Auto) 0.2 Baso % (Auto) 0.6 Lymph # 0.6 L Wayne # 0.5 Eos # 0.0 Baso # 0.0 Seg Neutrophils % 66.7 Seg Neutrophils # 2.4 PT INR APTT Sodium Potassium Chloride Carbon Dioxide Anion Gap BUN Creatinine Estimated GFR BUN/Creatinine Ratio Glucose Calcium Total Bilirubin AST ALT Alkaline Phosphatase Ammonia Total Creatine Kinase Total Protein Albumin Albumin/Globulin Ratio
--- NOTE | 2018-09-07 12:21 | Progress Note ---
Assessment and Plan Assessment and plan: 32-year-old man who presents to the hospital with fever. He was treated at [facility] 2 weeks ago for community acquired pneumonia and was treated with antibiotics, the patient reports compliance of those antibiotics CT amgio chest; no evidence of PE diffuse fatty infiltration of the liver Labs, UA is negative for UTI, hepatitis serology is only positive for positive hep C antibody, rapid HIV is negative, rapid influenza is negative Diagnoses Fever Transaminitis Severe hyponatremia SIRS Hep C Hypochloremia Leukopenia thrombocytopenia acute HIV viral syndrome Tobacco abuse hx of syphillis, earlier this year, rx with PCN at [facility] - abx per ID -fup HIV RNA quantitative, and also obtain CD4 counts -fup hep C viral RNA, quantitative, and genotype -isotonic IVF, Nephrology consult, hyponatremia/hypochloremia likely due to hypovolemia, hyposolutemia -Patient was counseled greater than 10 minutes about tobacco cessation -DVT ppx- chemical History Interval history: Review of systems Constitutional: c/o fevers and malaise CVS: No chest pain, no orthopnea, no dyspnea on exertion, no pedal edema GI: No abdominal pain, no diarrhea, no vomiting, no constipation Respiratory: No shortness of breath, no wheezing, no coughing Hospitalist Physical - Physical exam Narrative exam: General.: Appears well, no distress, non toxic appearance HEENT: Moist mucous membranes, extraocular muscles intact, no lymphadenopathy Neck: supple Cardiac: S1-S2 heard Lungs: clear to auscultation bilaterally Abdomen: soft , nontender, nondistended, bowel sounds positive Extremities: no edema clubbing or cyanosis Skin: no rash or lesions Neurologic: no gross focal deficits Psych: calm, and cooperative - Constitutional Vitals: Temp Pulse Resp BP Pulse Ox 98.3 F 88 24 131/77 95 09/07/18 05:03 09/07/18 05:03 09/06/18 23:27 09/07/18 05:03 09/07/18 09:16 Results - Labs CBC & Chem 7: 09/08/18 06:18 09/08/18 06:18 Labs: Laboratory Last Values WBC 3.5 K/mm3 (4.5-11.0) L 09/07/18 11:22 RBC 4.22 M/mm3 (3.65-5.03) 09/07/18 11:22 Hgb 12.8 gm/dl (11.8-15.2) 09/07/18 11:22 Hct 35.4 % (35.5-45.6) L 09/07/18 11:22 MCV 84 fl (84-94) 09/07/18 11:22 MCH 30 pg (28-32) 09/07/18 11:22 MCHC 36 % (32-34) H 09/07/18 11:22 RDW 13.1 % (13.2-15.2) L 09/07/18 11:22 Plt Count 79 K/mm3 (140-440) L 09/06/18 16:49 Lymph % (Auto) 17.8 % (13.4-35.0) 09/07/18 11:22 [place] % (Auto) 14.7 % (0.0-7.3) H 09/07/18 11:22 Eos % (Auto) 0.2 % (0.0-4.3) 09/07/18 11:22 Baso % (Auto) 0.6 % (0.0-1.8) 09/07/18 11:22 Lymph # 0.6 K/mm3 (1.2-5.4) L 09/07/18 11:22 [place] # 0.5 K/mm3 (0.0-0.8) 09/07/18 11:22 Eos # 0.0 K/mm3 (0.0-0.4) 09/07/18 11:22 Baso # 0.0 K/mm3 (0.0-0.1) 09/07/18 11:22 Add Manual Diff Complete 09/04/18 09:56 Total Counted 100 09/04/18 09:56 Seg Neutrophils % 66.7 % (40.0-70.0) 09/07/18 11:22 Seg Neuts % (Manual) 90.0 % (40.0-70.0) H 09/04/18 09:56 Band Neutrophils % 3.0 % 09/04/18 09:56 Lymphocytes % (Manual) 7.0 % (13.4-35.0) L 09/04/18 09:56 Reactive Lymphs % (Man) 0 % 09/04/18 09:56 Monocytes % (Manual) 0 % (0.0-7.3) 09/04/18 09:56 Eosinophils % (Manual) 0 % (0.0-4.3) 09/04/18 09:56 Basophils % (Manual) 0 % (0.0-1.8) 09/04/18 09:56 Metamyelocytes % 0 % 09/04/18 09:56 Myelocytes % 0 % 09/04/18 09:56 Promyelocytes % 0 % 09/04/18 09:56 Blast Cells % 0 % 09/04/18 09:56 Nucleated RBC % Not Reportable 09/04/18 09:56 Seg Neutrophils # 2.4 K/mm3 (1.8-7.7) 09/07/18 11:22 Seg Neutrophils # Man 1.7 K/mm3 (1.8-7.7) L 09/04/18 09:56 Band Neutrophils # 0.1 K/mm3 09/04/18 09:56 Lymphocytes # (Manual) 0.1 K/mm3 (1.2-5.4) L 09/04/18 09:56 Abs React Lymphs (Man) 0.0 K/mm3 09/04/18 09:56 Monocytes # (Manual) 0.0 K/mm3 (0.0-0.8) 09/04/18 09:56 Eosinophils # (Manual) 0.0 K/mm3 (0.0-0.4) 09/04/18 09:56 Basophils # (Manual) 0.0 K/mm3 (0.0-0.1) 09/04/18 09:56 Metamyelocytes # 0.0 K/mm3 09/04/18 09:56 Myelocytes # 0.0 K/mm3 09/04/18 09:56 Promyelocytes # 0.0 K/mm3 09/04/18 09:56 Blast Cells # 0.0 K/mm3 09/04/18 09:56 WBC Morphology Not Reportable 09/04/18 09:56 Hypersegmented Neuts Not Reportable 09/04/18 09:56 Hyposegmented Neuts Not Reportable 09/04/18 09:56 Hypogranular Neuts Not Reportable 09/04/18 09:56 Smudge Cells Not Reportable 09/04/18 09:56 Toxic Granulation Not Reportable 09/04/18 09:56 Toxic Vacuolation Not Reportable 09/04/18 09:56 Dohle Bodies Not Reportable 09/04/18 09:56 Pelger-Huet Anomaly Not Reportable 09/04/18 09:56 Rain Rods Not Reportable 09/04/18 09:56 Platelet Estimate Consistent w auto 09/04/18 09:56 Clumped Platelets Not Reportable 09/04/18 09:56 Plt Clumps, EDTA Not Reportable 09/04/18 09:56 Large Platelets Not Reportable 09/04/18 09:56 Giant Platelets Not Reportable 09/04/18 09:56 Platelet Satelliting Not Reportable 09/04/18 09:56 Plt Morphology Comment Not Reportable 09/04/18 09:56 RBC Morphology Normal 09/04/18 09:56 Dimorphic RBCs Not Reportable 09/04/18 09:56 Polychromasia Not Reportable 09/04/18 09:56 Hypochromasia Not Reportable 09/04/18 09:56 Poikilocytosis Not Reportable 09/04/18 09:56 Anisocytosis Not Reportable 09/04/18 09:56 Microcytosis Not Reportable 09/04/18 09:56 Macrocytosis Not Reportable 09/04/18 09:56 Spherocytes Not Reportable 09/04/18 09:56 Pappenheimer Bodies Not Reportable 09/04/18 09:56 Sickle Cells Not Reportable 09/04/18 09:56 Target Cells Not Reportable 09/04/18 09:56 Tear Drop Cells Not Reportable 09/04/18 09:56 Ovalocytes Not Reportable 09/04/18 09:56 Helmet Cells Not Reportable 09/04/18 09:56 Montero-Lyndon Bodies Not Reportable 09/04/18 09:56 [place] Rings Not Reportable 09/04/18 09:56 [place] Cells Not Reportable 09/04/18 09:56 Bite Cells Not Reportable 09/04/18 09:56 Crenated Cell Not Reportable 09/04/18 09:56 Elliptocytes Not Reportable 09/04/18 09:56 Acanthocytes (Spur) Not Reportable 09/04/18 09:56 Rouleaux Not Reportable 09/04/18 09:56 Hemoglobin C Crystals Not Reportable 09/04/18 09:56 Schistocytes Not Reportable 09/04/18 09:56 Malaria parasites Not Reportable 09/04/18 09:56 Cain Bodies Not Reportable 09/04/18 09:56 Hem Pathologist Commnt No 09/04/18 09:56 PT 12.4 Sec. (12.2-14.9) 09/06/18 16:49 INR 0.87 (0.87-1.13) 09/06/18 16:49 APTT 35.6 Sec. (24.2-36.6) 09/06/18 16:49 Sodium 130 mmol/L (137-145) L 09/07/18 04:32 Potassium 4.5 mmol/L (3.6-5.0) 09/07/18 04:32 Chloride 98.5 mmol/L (98-107) 09/07/18 04:32 Carbon Dioxide 21 mmol/L (22-30) L 09/07/18 04:32 Anion Gap 15 mmol/L 09/07/18 04:32 BUN 6 mg/dL (9-20) L 09/07/18 04:32 Creatinine 0.7 mg/dL (0.8-1.5) L 09/07/18 04:32 Estimated GFR > 60 ml/min 09/07/18 04:32 BUN/Creatinine Ratio 9 % 09/07/18 04:32 Glucose 111 mg/dL (75-100) H 09/07/18 04:32 Osmolality 260 Mosm/kg 09/04/18 16:06 Lactic Acid 1.10 mmol/L (0.7-2.0) 09/03/18 22:51 Calcium 8.0 mg/dL (8.4-10.2) L 09/07/18 04:32 Total Bilirubin 0.70 mg/dL (0.1-1.2) 09/07/18 04:32 Direct Bilirubin 0.2 mg/dL (0-0.2) 09/05/18 05:27 Indirect Bilirubin 0.2 mg/dL 09/05/18 05:27 AST 131 units/L (5-40) H 09/07/18 04:32 ALT 40 units/L (7-56) 09/07/18 04:32 Alkaline Phosphatase 55 units/L (35-129) 09/07/18 04:32 Ammonia 42.0 umol/L (25-60) 09/07/18 04:32 Lactate Dehydrogenase 515 units/L (91-180) H 09/06/18 07:11 Total Creatine Kinase 1459 units/L (55-170) H 09/07/18 04:32 C-Reactive Protein 0.30 mg/dL (0.00-1.30) 09/04/18 16:06 Total Protein 5.3 g/dL (6.3-8.2) L 09/07/18 04:32 Albumin 2.4 g/dL (3.9-5) L 09/07/18 04:32 Albumin/Globulin Ratio 0.8 % 09/07/18 04:32 TSH 0.872 mlU/mL (0.270-4.200) 09/05/18 05:27 Free T4 0.66 ng/dL (0.76-1.46) L 09/05/18 05:27 Thyroxine (T4) 4.4 ug/dL (4.0-12.0) 09/05/18 05:57 Urine Color Marlene (Yellow) 09/03/18 21:51 Urine Turbidity Clear (Clear) 09/03/18 21:51 Urine pH 6.0 (5.0-7.0) 09/03/18 21:51 Ur Specific [place] 1.029 (1.003-1.030) 09/03/18 21:51 Urine Protein >500 mg/dL (Negative) 09/03/18 21:51 Urine Glucose (UA) Neg mg/dL (Negative) 09/03/18 21:51 Urine Ketones Neg mg/dL (Negative) 09/03/18 21:51 Urine Blood Mod (Negative) 09/03/18 21:51 Urine Nitrite Neg (Negative) 09/03/18 21:51 Urine Bilirubin Neg (Negative) 09/03/18 21:51 Urine Urobilinogen < 2.0 mg/dL (<2.0) 09/03/18 21:51 Ur Leukocyte Esterase Neg (Negative) 09/03/18 21:51 Urine WBC (Auto) 4.0 /HPF (0.0-6.0) 09/03/18 21:51 Urine RBC (Auto) < 1.0 /HPF (0.0-6.0) 09/03/18 21:51 Urine Mucus Few /HPF 09/03/18 21:51 Urine Osmolality 637 Mosm/kg 09/05/18 04:00 Urine Creatinine 154.8 mg/dL (0.1-20.0) H 09/04/18 04:00 Protein/Creatinin Ratio 2.78 09/04/18 04:00 Urine Sodium 111 mmol/L 09/05/18 04:00 Urine Potassium 32.10 mmol/L 09/05/18 04:00 Urine Chloride 93.9 mmolL (110-250) L 09/05/18 04:00 Urine Total Protein 431 mg/dL (5-11.8) H 09/04/18 04:00 RPR Titer 1:16 09/03/18 21:46 RPR Reactive (Nonreactive) 09/03/18 21:46 Hepatitis A IgM Ab Non-reactive (NonReactive) 09/03/18 21:46 Hep Bs Antigen Non-reactive (Negative) 09/03/18 21:46 Hep B Core IgM Ab Non-reactive (NonReactive) 09/03/18 21:46 Hepatitis C Antibody Reactive (NonReactive) A 09/03/18 21:46 HIV 1&2 Antibody Rapid Non react (Non React) 09/03/18 21:46 HIV P24 Antigen Non react (Non React) 09/03/18 21:46 Influenza A (Rapid) Negative (Negative) 09/03/18 21:51 Influenza A (RT-PCR) Negative (Negative) 09/04/18 Unknown Influenza B (Rapid) Negative (Negative) 09/03/18 21:51 Influenza B (RT-PCR) Negative (Negative) 09/04/18 Unknown Active Medications - Current Medications Current Medications: Generic Name Dose Route Start Last Admin Trade Name Freq PRN Reason Stop Dose Admin Acetaminophen 650 mg 09/06/18 15:27 09/06/18 22:27 Tylenol PO 650 mg Q6H PRN Administration Pain MILD(1-3)/Fever >100.5/[place] Enoxaparin Sodium 40 mg 09/06/18 22:00 09/06/18 21:30 Lovenox SUB-Q 40 mg QDAY@2200 MARISABEL Administration Fluconazole 100 mg 09/04/18 10:00 09/07/18 11:16 Diflucan PO 100 mg QDAY MARISABEL Administration Guaifenesin 1,200 mg 09/05/18 22:00 09/07/18 11:15 Mucinex Er PO 1,200 mg BID MARISABEL Administration Hydrophilic Ointment 1 applic 09/06/18 10:21 Vaseline Lip Therapy TP DIRECT PRN Dry Lips Sodium Chloride 1,000 mls @ 75 mls/hr 09/04/18 01:00 09/07/18 05:04 Nacl 0.9% 1000 Ml IV 150 mls/hr DIRECT MARISABEL Administration Doxycycline Hyclate 100 mg/ 250 mls @ 250 mls/hr 09/05/18 16:00 09/07/18 11 :17 Sodium Chloride IV 250 mls/hr Q12HR MARISABEL Administration Protocol Lorazepam 2 mg 09/06/18 13:01 Ativan PO Q1H PRN CIWA-Ar 8-15 Lorazepam 4 mg 09/06/18 13:01 Ativan IV Q1H PRN CIWA-Ar 16-25 Lorazepam 4 mg 09/06/18 13:01 Ativan IV Q15MIN PRN CIWA-Ar >25 Multivitamins 1 each 09/07/18 10:00 09/07/18 11:15 Theragran Tab PO 1 each QDAY MARISABEL Administration Ondansetron HCl 4 mg 09/04/18 00:10 09/06/18 01:20 Zofran IV 4 mg Q4H PRN Administration Nausea And Vomiting Oxycodone/Acetaminophen 1 tab 09/06/18 15:27 Percocet 5/325 PO Q6H PRN Pain, Moderate (4-6) Sodium Chloride 10 ml 09/04/18 10:00 09/07/18 11:17 Sodium Chloride Flush Syringe 10 Ml IV 10 ml BID MARISABEL Administration Sodium Chloride 10 ml 09/04/18 00:10 Sodium Chloride Flush Syringe 10 Ml IV PRN PRN LINE FLUSH
[2018-09-07 12:50] LABS: Platelet Count 105 K/mm3 (140-440)
[2018-09-07] MEDS: LEVAQUIN 750MG/150ML 750 MG/150 ML BAG IV SCH (15:01)
[2018-09-07] MEDS: ROCEPHIN/NS 2 GM/100 ML 2 GM/100 ML BAG IV SCH ×2 (18:04→19:26)
--- NOTE | 2018-09-07 22:08 | XRay Report ---
PROCEDURE: XR CHEST ROUTINE 2V TECHNIQUE: PA and lateral chest radiographs were obtained. HISTORY: eval for pneumonia, worsening SOB COMPARISONS: None. FINDINGS: Irregular inhomogeneous densities are noted in bilateral lungs. Mild degree bilateral pleural effusio ns are identified. Cardiomediastinal silhouette is within normal limits. IMPRESSION: findings are consistent with bilateral pneumonia with pleural effusions. This document is electronically signed by Maxx Frank MD., September 07 2018 10:06:55 PM ET
[2018-09-07] MEDS: LOVENOX SUB-Q SCH (23:16)
[2018-09-08 06:48] LABS: Hematocrit 34.9 % (35.5-45.6); Hemoglobin 12.5 gm/dl (11.8-15.2)
[2018-09-08 07:12] LABS: BUN/Creatinine Ratio 10; Blood Urea Nitrogen 5 mg/dL (9-20); Calcium 7.6 mg/dL (8.4-10.2); Hemolysis Index 37
[2018-09-08] MEDS: NACL 0.9% 1000 ML 1,000 ML IV SCH ×2 (07:17→22:46)
[2018-09-08] MEDS ORDERED: SAMSCA PO ONE (09:45)
[2018-09-08] MEDS: DOXYCYCLINE HYCLATE 100 MG in NACL 0.9% 250ML 250 ML IV SCH ×2 (09:51→22:45)
--- NOTE | 2018-09-08 09:51 | Progress Note ---
Assessment and Plan Cultures: 09/03/2018 blood culture: No growth 09/04/2018 cryptococcal antigen: Negative Assessment: 32 y/o man with no medical history except for tobacco and EOTH abuse, MSM; admitted on 09/03/2018 due to 2-week history of cough with yellow sputum production and chest pressure upon coughing 1) SIRS v/s sepsis: no Fevers in > 24 hours. Etiology unclear. DDx: CAP, especially legionella ,+/- Acute antiretroviral syndrome +/- acute mononucleosis +/- acute HCV +/- less tick borne. Doubt autoimmune in light of low CRP. - Blood culture 09/03/2018 no growth today. - UA neg - HCV serology positive. - HBV serology negative. - HIV rapid negative and p24 Ag negative - Influenza PCR negative. - CXR neg. - CTA showed no evidence of PE, bibasilar subsegmental atelectasis greater on the left than the right and diffuse fatty infiltration of the liver - LDH - 515 - CRP - .30 2) Recent pneumonia: seen at [facility] on 08/15/2018 visit showed WBC 17K, AST 213/ALT 313, bili 1.4. Blood cultures negative. CXR showed lingular and LLL pneumonia. Treated with doxycycline for 10 days. 3) Elevated LFTs: ? from HCV +/- acute antiretroviral syndrome +/- acute mononucleosis +/- acute ETOh hepatitis +/- doubt leptospirosis or autoimmune. LFTs improving. 4) History of syphilis: RPR titer is 1:16. Reports syphilis diagnosis was this year and was treated with IM PCN shot at [place]. 5) Neutropenia continuing. thrombocytopenia resolved. 7) CAP: repeat chest xray results are consistent with bilateral pneumonia with pleural effusions. Recommendations: - f/u DARVIN with reflex, C3, C4 - f/u Legionella urine antigen - f/u EBV serology and EBV serum PCR, and CMV serology and EBV serum PCR - f/u HIV RNA PCR - continue Doxycycline 100 mg IV every 12 hours- therapeutic trial to cover for tick borne illnesses, D4 - continue fluconazole 100mg PO every 24 hours, D5 - Continue Ceftriaxone 2gm IV every 24 hours and Levofloxacin 750mg IV every 24 hours, D2 [facility] M: [phone] O:[phone] Subjective Date of service: 09/08/18 Principal diagnosis: Fever, Abnl LFTs Interval history: Patient seen and examined. Continuous coughing, tachypnea improving. Mother at bedside. Nurses notes, lab and reports reviewed, discussed with patient and mother, questions answered. Objective - Exam Narrative Exam: Constitutional: Alert, cooperative. mild distress Head, Ears, Nose: Normocephalic, atraumatic. External ears, nose normal Eyes: Conjunctivae/corneas clear. No icterus. No ptosis. Neck: Supple, no meningeal signs Oral: dentition fair, no thrush Cardiovascular: S1, S2 normal. Respiratory: Good air entry, Bilateral Rhonci, +Cough, +tachypnea - improved GI: Soft, non-tender; bowel sounds normal. No peritoneal signs Musculoskeletal: No pedal edema, no cyanosis. Skin: No rash or abscess Hem/Lymphatic: No palpable cervical or supraclavicular nodes. No lymphangitis Psych: Mood ok. Affect flat Neurological: Awake, alert, oriented. No gross abnormalit - Constitutional Vitals: Vital Signs Temp Pulse Resp BP Pulse Ox 99.4 F 83 14 121/87 99 09/08/18 05:20 09/08/18 05:20 09/07/18 16:50 09/08/18 05:20 09/08/18 05:20 Temperature -Last 24 Hours Temperature 99.4 F Temperature 99.4 F Temperature 98.6 F Temperature 98.6 F - Labs CBC & Chem 7: 09/08/18 06:18 09/08/18 06:18 Labs: Abnormal lab results 09/07/18 09/08/18 09/08/18 Range/Units 11:22 06:18 06:18 WBC 3.5 L (4.5-11.0) K/mm3 Hct 35.4 L 34.9 L (35.5-45.6) % MCHC 36 H (32-34) % RDW 13.1 L (13.2-15.2) % Plt Count 105 L (140-440) K/mm3 [place] % (Auto) 14.7 H (0.0-7.3) % Lymph # 0.6 L (1.2-5.4) K/mm3 Sodium 125 L (137-145) mmol/L Carbon Dioxide 19 L (22-30) mmol/L BUN 5 L (9-20) mg/dL Creatinine 0.5 L (0.8-1.5) mg/dL Calcium 7.6 L (8.4-10.2) mg/dL
--- NOTE | 2018-09-08 10:08 | Progress Note ---
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 Na trending down again despite adequate IV hydration with NS. AST/ALT wnl now, will add tolvaptan 15mg po 1 dose. (2) Proteinuria Current Visit: Yes Status: Acute Plan to address problem: Unclear etiology but it is in the setting of microscopic hematuria, a positive hep C antibody as well as hypoalbuminemia. hep C related MPGN cannot be ruled out. He does not have any edema on physical exam. urine protein/cr ratio ~2.78g/g. Hep C viral load pending. Also undergoing evaluation for HIV. (3) Transaminitis Current Visit: Yes Status: Acute Plan to address problem: Abd US was normal. We'll also follow-up on further hep C serologies. LFTs improving (4) Thrombocytopenia Current Visit: Yes Status: Acute Plan to address problem: stable Subjective Date of service: 09/08/18 Principal diagnosis: Fever, Abnl LFTs Interval history: Pt awake, alert, in NAD, denies fever, chills, n/v/d, CP , SOB Objective - Vital Signs Vital signs: Vital Signs - 12hr 09/08/18 05:20 Temperature 99.4 F Pulse Rate 83 Blood Pressure 121/87 O2 Sat by Pulse 99 Oximetry - General Appearance General appearance: well-developed, appears stated age EENT: ATNC, PERRL, mucous membranes moist Neck: no JVD Respiratory: Present: Clear to Ascultation Cardiology: regular, S1S2 Gastrointestinal: normoactive bowel sounds Integumentary: no rash, other (no edema ) Neurologic: no focal deficit, alert and oriented x3, strength 5/5, CN 3-12 intact Psychiatric: mood/affect appropriate, cooperative - Lab 09/08/18 06:18 09/08/18 06:18 Most recent lab results Calcium 7.6 mg/dL (8.4-10.2) L 09/08/18 06:18 Urine Creatinine 154.8 mg/dL (0.1-20.0) H 09/04/18 04:00 Urine Sodium 111 mmol/L 09/05/18 04:00 Urine Total Protein 431 mg/dL (5-11.8) H 09/04/18 04:00 Medications & Allergies - Medications Allergies/Adverse Reactions: Allergies No Known Allergies Allergy (Unverified 06/07/13 12:19) Home Medications: Home Medications Medication Instructions Recorded Confirmed Last Taken Type No Known Home Medications [No 09/03/18 09/03/18 Unknown History Reported Home Medications] Active Medications: Generic Name Dose Route Start Last Admin Trade Name Freq PRN Reason Stop Dose Admin Acetaminophen 650 mg 09/06/18 15:27 09/06/18 22:27 Tylenol PO 650 mg Q6H PRN Administration Pain MILD(1-3)/Fever >100.5/[place] Enoxaparin Sodium 40 mg 09/06/18 22:00 09/07/18 23:16 Lovenox SUB-Q 40 mg QDAY@2200 MARISABEL Administration Fluconazole 100 mg 09/04/18 10:00 09/07/18 11:16 Diflucan PO 100 mg QDAY MARISABEL Administration Guaifenesin 1,200 mg 09/05/18 22:00 09/07/18 23:16 Mucinex Er PO 1,200 mg BID MARISABEL Administration Hydrophilic Ointment 1 applic 09/06/18 10:21 Vaseline Lip Therapy TP DIRECT PRN Dry Lips Sodium Chloride 1,000 mls @ 75 mls/hr 09/04/18 01:00 09/08/18 07:17 Nacl 0.9% 1000 Ml IV 150 mls/hr DIRECT MARISABEL Administration Doxycycline Hyclate 100 mg/ 250 mls @ 250 mls/hr 09/05/18 16:00 09/08/18 09:51 Sodium Chloride IV 250 mls/hr Q12HR MARISABEL Administration Protocol Ceftriaxone Sodium 2 gm in 100 mls @ 200 mls/hr 09/07/18 15:00 09/07/18 19:26 Rocephin/Ns 2 Gm/100 Ml IV 200 mls/hr Q24HR MARISABEL Administration Protocol Levofloxacin/Dextrose 750 mg in 150 mls @ 100 mls/hr 09/07/18 15:00 09/07/18 15:01 Levaquin 750mg/150ml IV 100 mls/hr Q24HR MARISABEL Administration Protocol Lorazepam 2 mg 09/06/18 13:01 Ativan PO Q1H PRN CIWA-Ar 8-15 Lorazepam 4 mg 09/06/18 13:01 Ativan IV Q1H PRN CIWA-Ar 16-25 Lorazepam 4 mg 09/06/18 13:01 Ativan IV Q15MIN PRN CIWA-Ar >25 Multivitamins 1 each 09/07/18 10:00 09/07/18 11:15 Theragran Tab PO 1 each QDAY MARISABEL Administration Ondansetron HCl 4 mg 09/04/18 00:10 09/06/18 01:20 Zofran IV 4 mg Q4H PRN Administration Nausea And Vomiting Oxycodone/Acetaminophen 1 tab 09/06/18 15:27 Percocet 5/325 PO Q6H PRN Pain, Moderate (4-6) Sodium Chloride 10 ml 09/04/18 10:00 09/07/18 23:17 Sodium Chloride Flush Syringe 10 Ml IV 10 ml BID MARISABEL Administration Sodium Chloride 10 ml 09/04/18 00:10 Sodium Chloride Flush Syringe 10 Ml IV PRN PRN LINE FLUSH
[2018-09-08] MEDS: THERAGRAN Tab PO SCH (10:15)
[2018-09-08] MEDS: MUCINEX ER PO SCH ×2 (10:15→21:59)
[2018-09-08] MEDS: DIFLUCAN PO SCH (10:15)
[2018-09-08] MEDS: SODIUM CHLORIDE FLUSH SYRINGE 10 ML IV SCH ×2 (10:17→22:00)
--- NOTE | 2018-09-08 10:30 | Gastroenterology Progress Note ---
Assessment and Plan 1.elevated LFTs 2.hepatitis C antibody positive -temp 99.4 -WBC 3.5-trending up -H/H 12.5/34.9 -plt 144-trending up -INR WNL (0.87) -LFTs- AST 131-trending down (T.jaycob 0.70, ALT 40, alk phos 55) -hepatitis panel- +hepatitis C antibody -CT chest showed fatty infiltration of the liver -abd U/S showed liver normal -etiology-likely 2/2 rhabdomylosis from underlying vireal illness, but ETOH and HCV possible (Ab test is often false positve, milton in autoimmune diseased or atypicl infections) -clinically, patient is w/o GI complaints. Denies abd pain or N/V. No active signs of bleeding. Tolerating diet. No encephalopathy noted upon exam. -HCV RNA and genotype pending -continue to trend labs and supportive care -electrolyte management per primary team -no further recommendations per GI standpoint at this time -will follow HCV VL results 3.SIRS 4.pneumonia 4.syphilis 5.leukopenia 6.thrombocytopenia 7.hyponatremia Subjective Date of service: 09/08/18 Principal diagnosis: Fever, Abnl LFTs Interval history: Patient resting in bed this am with c/o continued mild SOB and cough but no GI complaints. Denies abd pain, N/v, or signs of bleeding. Tolerating diet. Objective - Constitutional Vitals: Temp Pulse Resp BP Pulse Ox 99.4 F 83 14 121/87 99 09/08/18 05:20 09/08/18 05:20 09/07/18 16:50 09/08/18 05:20 09/08/18 05:20 General appearance: no acute distress - Respiratory Respiratory: bilateral: diminished - Cardiovascular Rhythm: regular - Gastrointestinal General gastrointestinal: Present: soft, non-tender, non-distended, normal bowel sounds - Neurologic Neurological: alert and oriented x3 - Labs CBC & Chem 7: 09/08/18 06:18 09/08/18 06:18 Labs: Laboratory Results - last 24 hr 09/07/18 09/08/18 09/08/18 11:22 06:18 06:18 WBC 3.5 L RBC 4.22 Hgb 12.8 12.5 Hct 35.4 L 34.9 L MCV 84 MCH 30 MCHC 36 H RDW 13.1 L Plt Count 105 L 144 Lymph % (Auto) 17.8 [place] % (Auto) 14.7 H Eos % (Auto) 0.2 Baso % (Auto) 0.6 Lymph # 0.6 L [place] # 0.5 Eos # 0.0 Baso # 0.0 Seg Neutrophils % 66.7 Seg Neutrophils # 2.4 Sodium 125 L Potassium 4.1 Chloride 98.0 Carbon Dioxide 19 L Anion Gap 12 BUN 5 L Creatinine 0.5 L Estimated GFR > 60 BUN/Creatinine Ratio 10 Glucose 92 Calcium 7.6 L
[2018-09-08] MEDS: ROCEPHIN/NS 2 GM/100 ML 2 GM/100 ML BAG IV SCH (11:52)
[2018-09-08] MEDS: LEVAQUIN 750MG/150ML 750 MG/150 ML BAG IV SCH (12:28)
[2018-09-08 13:38] LABS: CD4/CD8 Ratio 1.1 (0.86-5.00)
--- NOTE | 2018-09-08 16:00 | Progress Note ---
Assessment and Plan Assessment and plan: 32-year-old man who presents to the hospital with fever. He was treated at [facility] 2 weeks ago for community acquired pneumonia and was treated with antibiotics, the patient reports compliance of those antibiotics CT amgio chest; no evidence of PE diffuse fatty infiltration of the liver Labs, UA is negative for UTI, hepatitis serology is only positive for positive hep C antibody, rapid HIV is negative, rapid influenza is negative Diagnoses Fever Transaminitis Severe hyponatremia SIRS Hep C Hypochloremia Leukopenia thrombocytopenia acute HIV viral syndrome Tobacco abuse hx of syphillis, earlier this year, rx with PCN at [facility] - abx per ID -fup HIV RNA quantitative, cd4 count 169, T.Palladium Ab positive -fup hep C viral RNA, quantitative, and genotype -isotonic IVF, Nephrology consult, hyponatremia/hypochloremia likely due to hypovolemia, hyposolutemia -Patient was counseled greater than 10 minutes about tobacco cessation -DVT ppx- chemical History Interval history: Review of systems Constitutional: c/o fevers and malaise CVS: No chest pain, no orthopnea, no dyspnea on exertion, no pedal edema GI: No abdominal pain, no diarrhea, no vomiting, no constipation Respiratory: No shortness of breath, no wheezing, no coughing Hospitalist Physical - Physical exam Narrative exam: General.: Appears well, no distress, non toxic appearance HEENT: Moist mucous membranes, extraocular muscles intact, no lymphadenopathy Neck: supple Cardiac: S1-S2 heard Lungs: clear to auscultation bilaterally Abdomen: soft , nontender, nondistended, bowel sounds positive Extremities: no edema clubbing or cyanosis Skin: no rash or lesions Neurologic: no gross focal deficits Psych: calm, and cooperative - Constitutional Vitals: Temp Pulse Resp BP Pulse Ox 98.2 F 92 H 19 120/78 95 09/08/18 11:47 09/08/18 11:47 09/08/18 11:47 09/08/18 11:47 09/08/18 11:47 Results - Labs CBC & Chem 7: 09/08/18 06:18 09/08/18 06:18 Labs: Laboratory Last Values WBC 3.5 K/mm3 (4.5-11.0) L 09/07/18 11:22 RBC 4.22 M/mm3 (3.65-5.03) 09/07/18 11:22 Hgb 12.5 gm/dl (11.8-15.2) 09/08/18 06:18 Hct 34.9 % (35.5-45.6) L 09/08/18 06:18 MCV 84 fl (84-94) 09/07/18 11:22 MCH 30 pg (28-32) 09/07/18 11:22 MCHC 36 % (32-34) H 09/07/18 11:22 RDW 13.1 % (13.2-15.2) L 09/07/18 11:22 Plt Count 144 K/mm3 (140-440) 09/08/18 06:18 Lymph % (Auto) 17.8 % (13.4-35.0) 09/07/18 11:22 [place] % (Auto) 14.7 % (0.0-7.3) H 09/07/18 11:22 Eos % (Auto) 0.2 % (0.0-4.3) 09/07/18 11:22 Baso % (Auto) 0.6 % (0.0-1.8) 09/07/18 11:22 Lymph # 0.6 K/mm3 (1.2-5.4) L 09/07/18 11:22 [place] # 0.5 K/mm3 (0.0-0.8) 09/07/18 11:22 Eos # 0.0 K/mm3 (0.0-0.4) 09/07/18 11:22 Baso # 0.0 K/mm3 (0.0-0.1) 09/07/18 11:22 Add Manual Diff Complete 09/04/18 09:56 Total Counted 100 09/04/18 09:56 Seg Neutrophils % 66.7 % (40.0-70.0) 09/07/18 11:22 Seg Neuts % (Manual) 90.0 % (40.0-70.0) H 09/04/18 09:56 Band Neutrophils % 3.0 % 09/04/18 09:56 Lymphocytes % (Manual) 7.0 % (13.4-35.0) L 09/04/18 09:56 Reactive Lymphs % (Man) 0 % 09/04/18 09:56 Monocytes % (Manual) 0 % (0.0-7.3) 09/04/18 09:56 Eosinophils % (Manual) 0 % (0.0-4.3) 09/04/18 09:56 Basophils % (Manual) 0 % (0.0-1.8) 09/04/18 09:56 Metamyelocytes % 0 % 09/04/18 09:56 Myelocytes % 0 % 09/04/18 09:56 Promyelocytes % 0 % 09/04/18 09:56 Blast Cells % 0 % 09/04/18 09:56 Nucleated RBC % Not Reportable 09/04/18 09:56 Seg Neutrophils # 2.4 K/mm3 (1.8-7.7) 09/07/18 11:22 Seg Neutrophils # Man 1.7 K/mm3 (1.8-7.7) L 09/04/18 09:56 Band Neutrophils # 0.1 K/mm3 09/04/18 09:56 Abs Lymphs (Manual) 481 cells/uL (850-3900) L 09/04/18 09:56 Lymphocytes # (Manual) 0.1 K/mm3 (1.2-5.4) L 09/04/18 09:56 Abs React Lymphs (Man) 0.0 K/mm3 09/04/18 09:56 Monocytes # (Manual) 0.0 K/mm3 (0.0-0.8) 09/04/18 09:56 Eosinophils # (Manual) 0.0 K/mm3 (0.0-0.4) 09/04/18 09:56 Basophils # (Manual) 0.0 K/mm3 (0.0-0.1) 09/04/18 09:56 Metamyelocytes # 0.0 K/mm3 09/04/18 09:56 Myelocytes # 0.0 K/mm3 09/04/18 09:56 Promyelocytes # 0.0 K/mm3 09/04/18 09:56 Blast Cells # 0.0 K/mm3 09/04/18 09:56 WBC Morphology Not Reportable 09/04/18 09:56 Hypersegmented Neuts Not Reportable 09/04/18 09:56 Hyposegmented Neuts Not Reportable 09/04/18 09:56 Hypogranular Neuts Not Reportable 09/04/18 09:56 Smudge Cells Not Reportable 09/04/18 09:56 Toxic Granulation Not Reportable 09/04/18 09:56 Toxic Vacuolation Not Reportable 09/04/18 09:56 Dohle Bodies Not Reportable 09/04/18 09:56 Pelger-Huet Anomaly Not Reportable 09/04/18 09:56 Rain Rods Not Reportable 09/04/18 09:56 Platelet Estimate Consistent w auto 09/04/18 09:56 Clumped Platelets Not Reportable 09/04/18 09:56 Plt Clumps, EDTA Not Reportable 09/04/18 09:56 Large Platelets Not Reportable 09/04/18 09:56 Giant Platelets Not Reportable 09/04/18 09:56 Platelet Satelliting Not Reportable 09/04/18 09:56 Plt Morphology Comment Not Reportable 09/04/18 09:56 RBC Morphology Normal 09/04/18 09:56 Dimorphic RBCs Not Reportable 09/04/18 09:56 Polychromasia Not Reportable 09/04/18 09:56 Hypochromasia Not Reportable 09/04/18 09:56 Poikilocytosis Not Reportable 09/04/18 09:56 Anisocytosis Not Reportable 09/04/18 09:56 Microcytosis Not Reportable 09/04/18 09:56 Macrocytosis Not Reportable 09/04/18 09:56 Spherocytes Not Reportable 09/04/18 09:56 Pappenheimer Bodies Not Reportable 09/04/18 09:56 Sickle Cells Not Reportable 09/04/18 09:56 Target Cells Not Reportable 09/04/18 09:56 Tear Drop Cells Not Reportable 09/04/18 09:56 Ovalocytes Not Reportable 09/04/18 09:56 Helmet Cells Not Reportable 09/04/18 09:56 [place] Bodies Not Reportable 09/04/18 09:56 Mason Rings Not Reportable 09/04/18 09:56 [place] Cells Not Reportable 09/04/18 09:56 Bite Cells Not Reportable 09/04/18 09:56 Crenated Cell Not Reportable 09/04/18 09:56 Elliptocytes Not Reportable 09/04/18 09:56 Acanthocytes (Spur) Not Reportable 09/04/18 09:56 Rouleaux Not Reportable 09/04/18 09:56 Hemoglobin C Crystals Not Reportable 09/04/18 09:56 Schistocytes Not Reportable 09/04/18 09:56 Malaria parasites Not Reportable 09/04/18 09:56 Cain Bodies Not Reportable 09/04/18 09:56 Hem Pathologist Commnt No 09/04/18 09:56 PT 12.4 Sec. (12.2-14.9) 09/06/18 16:49 INR 0.87 (0.87-1.13) 09/06/18 16:49 APTT 35.6 Sec. (24.2-36.6) 09/06/18 16:49 Sodium 125 mmol/L (137-145) L 09/08/18 06:18 Potassium 4.1 mmol/L (3.6-5.0) 09/08/18 06:18 Chloride 98.0 mmol/L (98-107) 09/08/18 06:18 Carbon Dioxide 19 mmol/L (22-30) L 09/08/18 06:18 Anion Gap 12 mmol/L 09/08/18 06:18 BUN 5 mg/dL (9-20) L 09/08/18 06:18 Creatinine 0.5 mg/dL (0.8-1.5) L 09/08/18 06:18 Estimated GFR > 60 ml/min 09/08/18 06:18 BUN/Creatinine Ratio 10 % 09/08/18 06:18 Glucose 92 mg/dL (75-100) 09/08/18 06:18 Osmolality 260 Mosm/kg 09/04/18 16:06 Lactic Acid 1.10 mmol/L (0.7-2.0) 09/03/18 22:51 Calcium 7.6 mg/dL (8.4-10.2) L 09/08/18 06:18 Total Bilirubin 0.70 mg/dL (0.1-1.2) 09/07/18 04:32 Direct Bilirubin 0.2 mg/dL (0-0.2) 09/05/18 05:27 Indirect Bilirubin 0.2 mg/dL 09/05/18 05:27 AST 131 units/L (5-40) H 09/07/18 04:32 ALT 40 units/L (7-56) 09/07/18 04:32 Alkaline Phosphatase 55 units/L (35-129) 09/07/18 04:32 Ammonia 42.0 umol/L (25-60) 09/07/18 04:32 Lactate Dehydrogenase 515 units/L (91-180) H 09/06/18 07:11 Total Creatine Kinase 1459 units/L (55-170) H 09/07/18 04:32 C-Reactive Protein 0.30 mg/dL (0.00-1.30) 09/04/18 16:06 Total Protein 5.3 g/dL (6.3-8.2) L 09/07/18 04:32 Albumin 2.4 g/dL (3.9-5) L 09/07/18 04:32 Albumin/Globulin Ratio 0.8 % 09/07/18 04:32 TSH 0.872 mlU/mL (0.270-4.200) 09/05/18 05:27 Free T4 0.66 ng/dL (0.76-1.46) L 09/05/18 05:27 Thyroxine (T4) 4.4 ug/dL (4.0-12.0) 09/05/18 05:57 Total Cortisol 17.3 mcg/dL () 09/05/18 05:27 Urine Color Marlene (Yellow) 09/03/18 21:51 Urine Turbidity Clear (Clear) 09/03/18 21:51 Urine pH 6.0 (5.0-7.0) 09/03/18 21:51 Ur Specific [place] 1.029 (1.003-1.030) 09/03/18 21:51 Urine Protein >500 mg/dL (Negative) 09/03/18 21:51 Urine Glucose (UA) Neg mg/dL (Negative) 09/03/18 21:51 Urine Ketones Neg mg/dL (Negative) 09/03/18 21:51 Urine Blood Mod (Negative) 09/03/18 21:51 Urine Nitrite Neg (Negative) 09/03/18 21:51 Urine Bilirubin Neg (Negative) 09/03/18 21:51 Urine Urobilinogen < 2.0 mg/dL (<2.0) 09/03/18 21:51 Ur Leukocyte Esterase Neg (Negative) 09/03/18 21:51 Urine WBC (Auto) 4.0 /HPF (0.0-6.0) 09/03/18 21:51 Urine RBC (Auto) < 1.0 /HPF (0.0-6.0) 09/03/18 21:51 Urine Mucus Few /HPF 09/03/18 21:51 Urine Osmolality 637 Mosm/kg 09/05/18 04:00 Urine Creatinine 154.8 mg/dL (0.1-20.0) H 09/04/18 04:00 Protein/Creatinin Ratio 2.78 09/04/18 04:00 Urine Sodium 111 mmol/L 09/05/18 04:00 Urine Potassium 32.10 mmol/L 09/05/18 04:00 Urine Chloride 93.9 mmolL (110-250) L 09/05/18 04:00 Urine Total Protein 431 mg/dL (5-11.8) H 09/04/18 04:00 Lymph Enumerat CD4/CD8 1.10 (0.86-5.00) 09/04/18 09:56 % CD3 Cells 68 % (57-85) 09/04/18 09:56 Absolute CD3 Count 328 cells/uL (840-3060) L 09/04/18 09:56 % CD4 Cells 36 % (30-61) 09/04/18 09:56 Absolute CD4 Count 169 cells/uL (490-1740) L 09/04/18 09:56 % CD8 Cells 33 % (12-42) 09/04/18 09:56 Absolute CD8 Count 153 cells/uL (180-1170) L 09/04/18 09:56 % CD19 Cells 6 % (6-29) 09/04/18 09:56 Absolute CD19 Count 30 cells/uL (110-660) L 09/04/18 09:56 RPR Titer 1:16 09/03/18 21:46 RPR Reactive (Nonreactive) 09/03/18 21:46 T.pallidum Ab (FTA-ABS) Reactive (Nonreactive) H 09/04/18 21:46 Hepatitis A IgM Ab Non-reactive (NonReactive) 09/03/18 21:46 Hep Bs Antigen Non-reactive (Negative) 09/03/18 21:46 Hep B Core IgM Ab Non-reactive (NonReactive) 09/03/18 21:46 Hepatitis C Antibody Reactive (NonReactive) A 09/03/18 21:46 HIV 1&2 Antibody Rapid Non react (Non React) 09/03/18 21:46 HIV P24 Antigen Non react (Non React) 09/03/18 21:46 Influenza A (Rapid) Negative (Negative) 09/03/18 21:51 Influenza A (RT-PCR) Negative (Negative) 09/04/18 Unknown Influenza B (Rapid) Negative (Negative) 09/03/18 21:51 Influenza B (RT-PCR) Negative (Negative) 09/04/18 Unknown Active Medications - Current Medications Current Medications: Generic Name Dose Route Start Last Admin Trade Name Freq PRN Reason Stop Dose Admin Acetaminophen 650 mg 09/06/18 15:27 09/06/18 22:27 Tylenol PO 650 mg Q6H PRN Administration Pain MILD(1-3)/Fever >100.5/[place] Enoxaparin Sodium 40 mg 09/06/18 22:00 09/07/18 23:16 Lovenox SUB-Q 40 mg QDAY@2200 MARISABEL Administration Fluconazole 100 mg 09/04/18 10:00 09/08/18 10:15 Diflucan PO 100 mg QDAY MARISABEL Administration Guaifenesin 1,200 mg 09/05/18 22:00 09/08/18 10:15 Mucinex Er PO 1,200 mg BID MARISABEL Administration Hydrophilic Ointment 1 applic 09/06/18 10:21 Vaseline Lip Therapy TP DIRECT PRN Dry Lips Sodium Chloride 1,000 mls @ 75 mls/hr 09/04/18 01:00 09/08/18 07:17 Nacl 0.9% 1000 Ml IV 150 mls/hr DIRECT MARISABEL Administration Doxycycline Hyclate 100 mg/ 250 mls @ 250 mls/hr 09/05/18 16:00 09/08/18 09:51 Sodium Chloride IV 250 mls/hr Q12HR MARISABEL Administration Protocol Ceftriaxone Sodium 2 gm in 100 mls @ 200 mls/hr 09/07/18 15:00 09/08/18 11:52 Rocephin/Ns 2 Gm/100 Ml IV 200 mls/hr Q24HR MARISABEL Administration Protocol Levofloxacin/Dextrose 750 mg in 150 mls @ 100 mls/hr 09/07/18 15:00 09/08/18 12:28 Levaquin 750mg/150ml IV 100 mls/hr Q24HR MARISABEL Administration Protocol Lorazepam 2 mg 09/06/18 13:01 Ativan PO Q1H PRN CIWA-Ar 8-15 Lorazepam 4 mg 09/06/18 13:01 Ativan IV Q1H PRN CIWA-Ar 16-25 Lorazepam 4 mg 09/06/18 13:01 Ativan IV Q15MIN PRN CIWA-Ar >25 Multivitamins 1 each 09/07/18 10:00 09/08/18 10:15 Theragran Tab PO 1 each QDAY MARISABEL Administration Ondansetron HCl 4 mg 09/04/18 00:10 09/06/18 01:20 Zofran IV 4 mg Q4H PRN Administration Nausea And Vomiting Oxycodone/Acetaminophen 1 tab 09/06/18 15:27 Percocet 5/325 PO Q6H PRN Pain, Moderate (4-6) Sodium Chloride 10 ml 09/04/18 10:00 09/08/18 10:17 Sodium Chloride Flush Syringe 10 Ml IV Not Given BID MARISABEL Sodium Chloride 10 ml 09/04/18 00:10 Sodium Chloride Flush Syringe 10 Ml IV PRN PRN LINE FLUSH
[2018-09-08 16:53] LABS: HIV-1 RNA QN PCR >10.0E6 Copies/mL; HIV-1 RNA QN PCR >7.00 Log cps/mL
[2018-09-08 19:39] LABS: CD4/CD8 Ratio 1.38 (0.86-5.00)
[2018-09-08] MEDS: LOVENOX SUB-Q SCH (22:00)
[2018-09-08] MEDS: ATIVAN IV PRN (22:45)
[2018-09-09] MEDS: TYLENOL PO PRN (04:39)
[2018-09-09] MEDS: ATIVAN IV PRN (05:03)
[2018-09-09 08:49] LABS: BUN/Creatinine Ratio 20; Blood Urea Nitrogen 6 mg/dL (9-20); Calcium 8.2 mg/dL (8.4-10.2); Hemolysis Index 4
--- NOTE | 2018-09-09 10:00 | Progress Note ---
Assessment and Plan Cultures: 09/03/2018 blood culture: No growth 09/04/2018 cryptococcal antigen: Negative Assessment: 32 y/o man with no medical history except for tobacco and EOTH abuse, MSM; admitted on 09/03/2018 due to 2-week history of cough with yellow sputum production and chest pressure upon coughing 1) SIRS v/s sepsis: Continued on and off fevers.. Etiology unclear. DDx: CAP, newly diagnoised HIV, +/- PJP, +/- acute mononucleosis +/- acute HCV +/- less tick borne. Doubt autoimmune in light of low CRP. - Blood culture 09/03/2018 no growth today. - UA neg - HCV serology positive. - HBV serology negative. - HIV rapid negative and p24 Ag negative - Influenza PCR negative. - CXR neg. - CTA showed no evidence of PE, bibasilar subsegmental atelectasis greater on the left than the right and diffuse fatty infiltration of the liver - LDH - 515 - CRP - .30 -Urine Legionella AG - negative 2) Acute HIV: newly diagnosed. CD4= 169/171, VL= >10,000,000 .Will order HIV genotype to determine HAART regimen. Started bactrim DS 2 tabs TID to cover PJP. Discontinue Doxycycline. 3) Recent pneumonia: seen at [facility] ED on 08/15/2018 visit showed WBC 17K, AST 213/ALT 313, bili 1.4. Blood cultures negative. CXR showed lingular and LLL pneumonia. Treated with doxycycline for 10 days. 4) Elevated LFTs: ? from HCV +/- acute antiretroviral syndrome +/- acute mononucleosis +/- acute ETOh hepatitis +/- doubt leptospirosis or autoimmune. LFTs improving. 5) History of syphilis: RPR titer is 1:16. Reports syphilis diagnosis was this year and was treated with IM PCN shot at [place]. 6) Neutropenia continuing. thrombocytopenia resolved. 7) CAP: repeat chest xray results are consistent with bilateral pneumonia with pleural effusions. 8) Acute encephalopathy: on exam. +/- Neurosyphilis, will order LP and CT of head w/o contrast. Recommendations: - f/u DARVIN with reflex, C3, C4 - f/u EBV serology and EBV serum PCR, and CMV serology and EBV serum PCR - discontinue Doxycycline - continue fluconazole 100mg PO every 24 hours, D6 - Continue Ceftriaxone 2gm IV every 24 hours and Levofloxacin 750mg IV every 24 hours, D3 - start bactrim DS 2 tabs TID to cover PJP for newly diagnosed HIV -switch to levaquin 750mg PO q 24, D6 of D7 -order CMV DNA and HIV genotype to determine HAART regimine -Order CT of head w/o contrast, LP , Cell count with Diff, VDRL, glucose, Crytococcal and CMV PCR d/w Dr.Diaz Eileen Peña, REFRIGERATION MANAGER [facility] M: [id number] O:[phone] Subjective Date of service: 09/09/18 Principal diagnosis: Fever, Abnl LFTs Interval history: Patient seen and examined. Altered mental status on exam with +tachypnea. +fevers. Objective - Exam Narrative Exam: Constitutional: sleepy, difficult to arouse, acute encephalopathy. Head, Ears, Nose: Normocephalic, atraumatic. External ears, nose normal Eyes: Conjunctivae/corneas clear. No icterus. No ptosis. Neck: Supple, no meningeal signs Oral: dentition fair, no thrush Cardiovascular: S1, S2 normal. Respiratory: Good air entry, +tachypnea GI: Soft, non-tender; bowel sounds normal. No peritoneal signs Musculoskeletal: No pedal edema, no cyanosis. Skin: No rash or abscess Hem/Lymphatic: No palpable cervical or supraclavicular nodes. No lymphangitis Psych: acute encephalopathy Neurological: Asleep, acute encephalopathy - Constitutional Vitals: Vital Signs Temp Pulse Resp BP Pulse Ox 100.4 F H 92 H 18 127/87 97 09/09/18 04:35 09/09/18 04:35 09/09/18 04:35 09/09/18 04:35 09/09/18 04:35 Temperature -Last 24 Hours Temperature 100.4 F Temperature 100.0 F Temperature 98.9 F Temperature 98.2 F - Labs CBC & Chem 7: 09/08/18 06:18 09/09/18 04:54 Labs: Abnormal lab results 09/04/18 09/04/18 09/04/18 Range/Units 09:56 09:56 16:06 Abs Lymphs (Manual) 481 L 405 L (850-3900) cells/uL BUN (9-20) mg/dL Creatinine (0.8-1.5) mg/dL Glucose (75-100) mg/dL Calcium (8.4-10.2) mg/dL Total Creatine Kinase (55-170) units/L Absolute CD3 Count 328 L 301 L (840-3060) cells/uL Absolute CD4 Count 169 L 177 L (490-1740) cells/uL Absolute CD8 Count 153 L 129 L (180-1170) cells/uL Absolute CD19 Count 30 L 31 L (110-660) cells/uL T.pallidum Ab (FTA-ABS) (Nonreactive) HIV-1 RNA PCR copies/ml >10.0e6 H Copies/mL HIV-1 RNA (PCR) log >7.00 H Log cps/mL 09/04/18 09/09/18 09/09/18 Range/Units 21:46 04:54 04:54 Abs Lymphs (Manual) (850-3900) cells/uL BUN 6 L (9-20) mg/dL Creatinine 0.3 L (0.8-1.5) mg/dL Glucose 110 H (75-100) mg/dL Calcium 8.2 L (8.4-10.2) mg/dL Total Creatine Kinase 901 H (55-170) units/L Absolute CD3 Count (840-3060) cells/uL Absolute CD4 Count (490-1740) cells/uL Absolute CD8 Count (180-1170) cells/uL Absolute CD19 Count (110-660) cells/uL T.pallidum Ab (FTA-ABS) Reactive H (Nonreactive) HIV-1 RNA PCR copies/ml Copies/mL HIV-1 RNA (PCR) log Log cps/mL
--- NOTE | 2018-09-09 10:47 | Progress Note ---
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 na normalized after 1 dose of tolvaptan. d/c IV NS. start fluid restriction to 1.5L/day (2) Proteinuria Current Visit: Yes Status: Acute Plan to address problem: Unclear etiology but it is in the setting of microscopic hematuria, a positive hep C antibody as well as hypoalbuminemia. hep C related MPGN cannot be ruled out. He does not have any edema on physical exam. urine protein/cr ratio ~2.78g/g. Hep C viral load pending. Also undergoing evaluation for HIV. (3) Transaminitis Current Visit: Yes Status: Acute Plan to address problem: Abd US was normal. We'll also follow-up on further hep C serologies. LFTs imp roving (4) Thrombocytopenia Current Visit: Yes Status: Acute Plan to address problem: stable Subjective Date of service: 09/09/18 Principal diagnosis: Fever, Abnl LFTs Interval history: Pt awake, alert, in NAD, denies fever, chills, n/v/d, CP , SOB. Na corrected. Objective - Vital Signs Vital signs: Vital Signs - 12hr 09/09/18 04:35 Temperature 100.4 F H Pulse Rate 92 H Respiratory 18 Rate Blood Pressure 127/87 O2 Sat by Pulse 97 Oximetry - General Appearance General appearance: well-developed, well-nourished, appears stated age EENT: ATNC, PERRL, mucous membranes moist Neck: no JVD Respiratory: Present: Clear to Ascultation Cardiology: regular, S1S2 Gastrointestinal: normoactive bowel sounds Integumentary: no rash, other (no edema ) Neurologic: no focal deficit, alert and oriented x3, strength 5/5, CN 3-12 intact Psychiatric: mood/affect appropriate, cooperative - Lab 09/08/18 06:18 09/09/18 04:54 Most recent lab results Calcium 8.2 mg/dL (8.4-10.2) L 09/09/18 04:54 Urine Creatinine 154.8 mg/dL (0.1-20.0) H 09/04/18 04:00 Urine Sodium 111 mmol/L 09/05/18 04:00 Urine Total Protein 431 mg/dL (5-11.8) H 09/04/18 04:00 Medications & Allergies - Medications Allergies/Adverse Reactions: Allergies No Known Allergies Allergy (Unverified 06/07/13 12:19) Home Medications: Home Medications Medication Instructions Recorded Confirmed Last Taken Type No Known Home Medications [No 09/03/18 09/03/18 Unknown History Reported Home Medications] Active Medications: Generic Name Dose Route Start Last Admin Trade Name Freq PRN Reason Stop Dose Admin Acetaminophen 650 mg 09/06/18 15:27 09/09/18 04:39 Tylenol PO 650 mg Q6H PRN Administration Pain MILD(1-3)/Fever >100.5/[place] Enoxaparin Sodium 40 mg 09/06/18 22:00 09/08/18 22:00 Lovenox SUB-Q 40 mg QDAY@2200 MARISABEL Administration Fluconazole 100 mg 09/04/18 10:00 09/08/18 10:15 Diflucan PO 100 mg QDAY MARISABEL Administration Guaifenesin 1,200 mg 09/05/18 22:00 09/08/18 21:59 Mucinex Er PO 1,200 mg BID MARISABEL Administration Hydrophilic Ointment 1 applic 09/06/18 10:21 Vaseline Lip Therapy TP DIRECT PRN Dry Lips Sodium Chloride 1,000 mls @ 75 mls/hr 09/04/18 01:00 09/08/18 22:46 Nacl 0.9% 1000 Ml IV 150 mls/hr DIRECT MARISABEL Administration Ceftriaxone Sodium 2 gm in 100 mls @ 200 mls/hr 09/07/18 15:00 09/08/18 11:52 Rocephin/Ns 2 Gm/100 Ml IV 200 mls/hr Q24HR MARISABEL Administration Protocol Levofloxacin/Dextrose 750 mg in 150 mls @ 100 mls/hr 09/07/18 15:00 09/08/18 12:28 Levaquin 750mg/150ml IV 100 mls/hr Q24HR MARISABEL Administration Protocol Lorazepam 2 mg 09/06/18 13:01 Ativan PO Q1H PRN CIWA-Ar 8-15 Lorazepam 4 mg 09/06/18 13:01 09/09/18 05:03 Ativan IV 4 mg Q1H PRN Administration CIWA-Ar 16-25 Lorazepam 4 mg 09/06/18 13:01 Ativan IV Q15MIN PRN CIWA-Ar >25 Multivitamins 1 each 09/07/18 10:00 09/08/18 10:15 Theragran Tab PO 1 each QDAY MARISABEL Administration Ondansetron HCl 4 mg 09/04/18 00:10 09/06/18 01:20 Zofran IV 4 mg Q4H PRN Administration Nausea And Vomiting Oxycodone/Acetaminophen 1 tab 09/06/18 15:27 09/09/18 04:39 Percocet 5/325 PO 1 tab Q6H PRN Administration Pain, Moderate (4-6) Sodium Chloride 10 ml 09/04/18 10:00 09/08/18 22:00 Sodium Chloride Flush Syringe 10 Ml IV 10 ml BID MARISABEL Administration Sodium Chloride 10 ml 09/04/18 00:10 Sodium Chloride Flush Syringe 10 Ml IV PRN PRN LINE FLUSH Trimethoprim/Sulfamethoxazole 2 each 09/09/18 08:00 Bactrim Ds PO Q8HR MARISABEL
[2018-09-09 11:01] LABS: HIV-1 RNA QN PCR >10.0E6 Copies/mL; HIV-1 RNA QN PCR >7.00 Log cps/mL
[2018-09-09] MEDS: ROCEPHIN/NS 2 GM/100 ML 2 GM/100 ML BAG IV SCH (13:04)
[2018-09-09] MEDS: BACTRIM DS PO SCH ×3 (13:05→22:40)
[2018-09-09] MEDS: DIFLUCAN PO SCH (13:05)
[2018-09-09] MEDS: THERAGRAN Tab PO SCH (13:05)
[2018-09-09] MEDS: MUCINEX ER PO SCH ×2 (13:05→22:39)
[2018-09-09] MEDS: SODIUM CHLORIDE FLUSH SYRINGE 10 ML IV SCH ×2 (13:06→22:41)
[2018-09-09] MEDS: LEVAQUIN 750MG/150ML 750 MG/150 ML BAG IV SCH (13:47)
--- NOTE | 2018-09-09 17:49 | Progress Note ---
Assessment and Plan Assessment and plan: 32-year-old man who presents to the hospital with fever. He was treated at [facility] 2 weeks ago for community acquired pneumonia and was treated with antibiotics, the patient reports compliance of those antibiotics CT amgio chest; no evidence of PE diffuse fatty infiltration of the liver Labs, UA is negative for UTI, hepatitis serology is only positive for positive hep C antibody, rapid HIV is negative, rapid influenza is negative Diagnoses Fever Transaminitis Severe hyponatremia SIRS Hep C Hypochloremia Leukopenia thrombocytopenia acute HIV viral syndrome Tobacco abuse hx of syphillis, earlier this year, rx with PCN at [facility] - abx per ID -HIV RNA is positive, cd4 count 169, T.Palladium Ab positive -fup hep C viral RNA, quantitative, and genotype -s/p isotonic IVF, Nephrology consult, hyponatremia/hypochloremia likely due to hypovolemia, hyposolutemia, improved -Patient was counseled greater than 10 minutes about tobacco cessation -DVT ppx- chemical History Interval history: Review of systems Constitutional: c/o fevers and malaise CVS: No chest pain, no orthopnea, no dyspnea on exertion, no pedal edema GI: No abdominal pain, no diarrhea, no vomiting, no constipation Respiratory: No shortness of breath, no wheezing, no coughing Hospitalist Physical - Physical exam Narrative exam: General.: Appears well, no distress, non toxic appearance HEENT: Moist mucous membranes, extraocular muscles intact, no lymphadenopathy Neck: supple Cardiac: S1-S2 heard Lungs: clear to auscultation bilaterally Abdomen: soft , nontender, nondistended, bowel sounds positive Extremities: no edema clubbing or cyanosis Skin: no rash or lesions Neurologic: no gross focal deficits Psych: calm, and cooperative - Constitutional Vitals: Temp Pulse Resp BP Pulse Ox 99.9 F H 86 20 135/94 98 09/09/18 17:09 09/09/18 17:09 09/09/18 17:09 09/09/18 17:09 09/09/18 17:09 Results - Labs CBC & Chem 7: 09/08/18 06:18 09/09/18 04:54 Labs: Laboratory Last Values WBC 3.5 K/mm3 (4.5-11.0) L 09/07/18 11:22 RBC 4.22 M/mm3 (3.65-5.03) 09/07/18 11:22 Hgb 12.5 gm/dl (11.8-15.2) 09/08/18 06:18 Hct 34.9 % (35.5-45.6) L 09/08/18 06:18 MCV 84 fl (84-94) 09/07/18 11:22 MCH 30 pg (28-32) 09/07/18 11:22 MCHC 36 % (32-34) H 09/07/18 11:22 RDW 13.1 % (13.2-15.2) L 09/07/18 11:22 Plt Count 144 K/mm3 (140-440) 09/08/18 06:18 Lymph % (Auto) 17.8 % (13.4-35.0) 09/07/18 11:22 Stearns % (Auto) 14.7 % (0.0-7.3) H 09/07/18 11:22 Eos % (Auto) 0.2 % (0.0-4.3) 09/07/18 11:22 Baso % (Auto) 0.6 % (0.0-1.8) 09/07/18 11:22 Lymph # 0.6 K/mm3 (1.2-5.4) L 09/07/18 11:22 Stearns # 0.5 K/mm3 (0.0-0.8) 09/07/18 11:22 Eos # 0.0 K/mm3 (0.0-0.4) 09/07/18 11:22 Baso # 0.0 K/mm3 (0.0-0.1) 09/07/18 11:22 Add Manual Diff Complete 09/04/18 09:56 Total Counted 100 09/04/18 09:56 Seg Neutrophils % 66.7 % (40.0-70.0) 09/07/18 11:22 Seg Neuts % (Manual) 90.0 % (40.0-70.0) H 09/04/18 09:56 Band Neutrophils % 3.0 % 09/04/18 09:56 Lymphocytes % (Manual) 7.0 % (13.4-35.0) L 09/04/18 09:56 Reactive Lymphs % (Man) 0 % 09/04/18 09:56 Monocytes % (Manual) 0 % (0.0-7.3) 09/04/18 09:56 Eosinophils % (Manual) 0 % (0.0-4.3) 09/04/18 09:56 Basophils % (Manual) 0 % (0.0-1.8) 09/04/18 09:56 Metamyelocytes % 0 % 09/04/18 09:56 Myelocytes % 0 % 09/04/18 09:56 Promyelocytes % 0 % 09/04/18 09:56 Blast Cells % 0 % 09/04/18 09:56 Nucleated RBC % Not Reportable 09/04/18 09:56 Seg Neutrophils # 2.4 K/mm3 (1.8-7.7) 09/07/18 11:22 Seg Neutrophils # Man 1.7 K/mm3 (1.8-7.7) L 09/04/18 09:56 Band Neutrophils # 0.1 K/mm3 09/04/18 09:56 Abs Lymphs (Manual) 405 cells/uL (850-3900) L 09/04/18 16:06 Lymphocytes # (Manual) 0.1 K/mm3 (1.2-5.4) L 09/04/18 09:56 Abs React Lymphs (Man) 0.0 K/mm3 09/04/18 09:56 Monocytes # (Manual) 0.0 K/mm3 (0.0-0.8) 09/04/18 09:56 Eosinophils # (Manual) 0.0 K/mm3 (0.0-0.4) 09/04/18 09:56 Basophils # (Manual) 0.0 K/mm3 (0.0-0.1) 09/04/18 09:56 Metamyelocytes # 0.0 K/mm3 09/04/18 09:56 Myelocytes # 0.0 K/mm3 09/04/18 09:56 Promyelocytes # 0.0 K/mm3 09/04/18 09:56 Blast Cells # 0.0 K/mm3 09/04/18 09:56 WBC Morphology Not Reportable 09/04/18 09:56 Hypersegmented Neuts Not Reportable 09/04/18 09:56 Hyposegmented Neuts Not Reportable 09/04/18 09:56 Hypogranular Neuts Not Reportable 09/04/18 09:56 Smudge Cells Not Reportable 09/04/18 09:56 Toxic Granulation Not Reportable 09/04/18 09:56 Toxic Vacuolation Not Reportable 09/04/18 09:56 Dohle Bodies Not Reportable 09/04/18 09:56 Pelger-Huet Anomaly Not Reportable 09/04/18 09:56 Rain Rods Not Reportable 09/04/18 09:56 Platelet Estimate Consistent w auto 09/04/18 09:56 Clumped Platelets Not Reportable 09/04/18 09:56 Plt Clumps, EDTA Not Reportable 09/04/18 09:56 Large Platelets Not Reportable 09/04/18 09:56 Giant Platelets Not Reportable 09/04/18 09:56 Platelet Satelliting Not Reportable 09/04/18 09:56 Plt Morphology Comment Not Reportable 09/04/18 09:56 RBC Morphology Normal 09/04/18 09:56 Dimorphic RBCs Not Reportable 09/04/18 09:56 Polychromasia Not Reportable 09/04/18 09:56 Hypochromasia Not Reportable 09/04/18 09:56 Poikilocytosis Not Reportable 09/04/18 09:56 Anisocytosis Not Reportable 09/04/18 09:56 Microcytosis Not Reportable 09/04/18 09:56 Macrocytosis Not Reportable 09/04/18 09:56 Spherocytes Not Reportable 09/04/18 09:56 Pappenheimer Bodies Not Reportable 09/04/18 09:56 Sickle Cells Not Reportable 09/04/18 09:56 Target Cells Not Reportable 09/04/18 09:56 Tear Drop Cells Not Reportable 09/04/18 09:56 Ovalocytes Not Reportable 09/04/18 09:56 Helmet Cells Not Reportable 09/04/18 09:56 [place] Bodies Not Reportable 09/04/18 09:56 [place] Rings Not Reportable 09/04/18 09:56 Corona Cells Not Reportable 09/04/18 09:56 Bite Cells Not Reportable 09/04/18 09:56 Crenated Cell Not Reportable 09/04/18 09:56 Elliptocytes Not Reportable 09/04/18 09:56 Acanthocytes (Spur) Not Reportable 09/04/18 09:56 Rouleaux Not Reportable 09/04/18 09:56 Hemoglobin C Crystals Not Reportable 09/04/18 09:56 Schistocytes Not Reportable 09/04/18 09:56 Malaria parasites Not Reportable 09/04/18 09:56 Cain Bodies Not Reportable 09/04/18 09:56 Hem Pathologist Commnt No 09/04/18 09:56 PT 12.4 Sec. (12.2-14.9) 09/06/18 16:49 INR 0.87 (0.87-1.13) 09/06/18 16:49 APTT 35.6 Sec. (24.2-36.6) 09/06/18 16:49 Sodium 140 mmol/L (137-145) D 09/09/18 04:54 Potassium 3.7 mmol/L (3.6-5.0) 09/09/18 04:54 Chloride 106.7 mmol/L (98-107) 09/09/18 04:54 Carbon Dioxide 22 mmol/L (22-30) 09/09/18 04:54 Anion Gap 15 mmol/L 09/09/18 04:54 BUN 6 mg/dL (9-20) L 09/09/18 04:54 Creatinine 0.3 mg/dL (0.8-1.5) L 09/09/18 04:54 Estimated GFR > 60 ml/min 09/09/18 04:54 BUN/Creatinine Ratio 20 % 09/09/18 04:54 Glucose 110 mg/dL (75-100) H 09/09/18 04:54 Osmolality 260 Mosm/kg 09/04/18 16:06 Lactic Acid 1.10 mmol/L (0.7-2.0) 09/03/18 22:51 Calcium 8.2 mg/dL (8.4-10.2) L 09/09/18 04:54 Total Bilirubin 0.70 mg/dL (0.1-1.2) 09/07/18 04:32 Direct Bilirubin 0.2 mg/dL (0-0.2) 09/05/18 05:27 Indirect Bilirubin 0.2 mg/dL 09/05/18 05:27 AST 131 units/L (5-40) H 09/07/18 04:32 ALT 40 units/L (7-56) 09/07/18 04:32 Alkaline Phosphatase 55 units/L (35-129) 09/07/18 04:32 Ammonia 42.0 umol/L (25-60) 09/07/18 04:32 Lactate Dehydrogenase 515 units/L (91-180) H 09/06/18 07:11 Total Creatine Kinase 901 units/L (55-170) H 09/09/18 04:54 C-Reactive Protein 0.30 mg/dL (0.00-1.30) 09/04/18 16:06 Total Protein 5.3 g/dL (6.3-8.2) L 09/07/18 04:32 Albumin 2.4 g/dL (3.9-5) L 09/07/18 04:32 Albumin/Globulin Ratio 0.8 % 09/07/18 04:32 Ceruloplasmin 32 mg/dL (18-36) 09/07/18 04:32 TSH 0.872 mlU/mL (0.270-4.200) 09/05/18 05:27 Free T4 0.66 ng/dL (0.76-1.46) L 09/05/18 05:27 Thyroxine (T4) 4.4 ug/dL (4.0-12.0) 09/05/18 05:57 Total Cortisol 17.3 mcg/dL () 09/05/18 05:27 Urine Color Marlene (Yellow) 09/03/18 21:51 Urine Turbidity Clear (Clear) 09/03/18 21:51 Urine pH 6.0 (5.0-7.0) 09/03/18 21:51 Ur Specific [place] 1.029 (1.003-1.030) 09/03/18 21:51 Urine Protein >500 mg/dL (Negative) 09/03/18 21:51 Urine Glucose (UA) Neg mg/dL (Negative) 09/03/18 21:51 Urine Ketones Neg mg/dL (Negative) 09/03/18 21:51 Urine Blood Mod (Negative) 09/03/18 21:51 Urine Nitrite Neg (Negative) 09/03/18 21:51 Urine Bilirubin Neg (Negative) 09/03/18 21:51 Urine Urobilinogen < 2.0 mg/dL (<2.0) 09/03/18 21:51 Ur Leukocyte Esterase Neg (Negative) 09/03/18 21:51 Urine WBC (Auto) 4.0 /HPF (0.0-6.0) 09/03/18 21:51 Urine RBC (Auto) < 1.0 /HPF (0.0-6.0) 09/03/18 21:51 Urine Mucus Few /HPF 09/03/18 21:51 Urine Osmolality 637 Mosm/kg 09/05/18 04:00 Urine Creatinine 154.8 mg/dL (0.1-20.0) H 09/04/18 04:00 Protein/Creatinin Ratio 2.78 09/04/18 04:00 Urine Sodium 111 mmol/L 09/05/18 04:00 Urine Potassium 32.10 mmol/L 09/05/18 04:00 Urine Chloride 93.9 mmolL (110-250) L 09/05/18 04:00 Urine Total Protein 431 mg/dL (5-11.8) H 09/04/18 04:00 Lymph Enumerat CD4/CD8 1.38 (0.86-5.00) 09/04/18 16:06 % CD3 Cells 74 % (57-85) 09/04/18 16:06 Absolute CD3 Count 301 cells/uL (840-3060) L 09/04/18 16:06 % CD4 Cells 42 % (30-61) 09/04/18 16:06 Absolute CD4 Count 177 cells/uL (490-1740) L 09/04/18 16:06 % CD8 Cells 31 % (12-42) 09/04/18 16:06 Absolute CD8 Count 129 cells/uL (180-1170) L 09/04/18 16:06 % CD19 Cells 8 % (6-29) 09/04/18 16:06 Absolute CD19 Count 31 cells/uL (110-660) L 09/04/18 16:06 RPR Titer 1:16 09/03/18 21:46 RPR Reactive (Nonreactive) 09/03/18 21:46 T.pallidum Ab (FTA-ABS) Reactive (Nonreactive) H 09/04/18 21:46 Hepatitis A IgM Ab Non-reactive (NonReactive) 09/03/18 21:46 Hep Bs Antigen Non-reactive (Negative) 09/03/18 21:46 Hep B Core IgM Ab Non-reactive (NonReactive) 09/03/18 21:46 Hepatitis C Antibody Reactive (NonReactive) A 09/03/18 21:46 HIV-1 RNA PCR copies/ml >10.0e6 Copies/mL H 09/04/18 16:06 HIV-1 RNA (PCR) log >7.00 Log cps/mL H 09/04/18 16:06 HIV 1&2 Antibody Rapid Non react (Non React) 09/03/18 21:46 HIV P24 Antigen Non react (Non React) 09/03/18 21:46 Influenza A (Rapid) Negative (Negative) 09/03/18 21:51 Influenza A (RT-PCR) Negative (Negative) 09/04/18 Unknown Influenza B (Rapid) Negative (Negative) 09/03/18 21:51 Influenza B (RT-PCR) Negative (Negative) 09/04/18 Unknown Urine Legionella Ag Not detected (Not Detected) 09/05/18 04:00 Active Medications - Current Medications Current Medications: Generic Name Dose Route Start Last Admin Trade Name Freq PRN Reason Stop Dose Admin Acetaminophen 650 mg 09/06/18 15:27 09/09/18 04:39 Tylenol PO 650 mg Q6H PRN Administration Pain MILD(1-3)/Fever >100.5/[place] Enoxaparin Sodium 40 mg 09/06/18 22:00 09/08/18 22:00 Lovenox SUB-Q 40 mg QDAY@2200 MARISABEL Administration Fluconazole 100 mg 09/04/18 10:00 09/09/18 13:05 Diflucan PO 100 mg QDAY MARISABEL Administration Guaifenesin 1,200 mg 09/05/18 22:00 09/09/18 13:05 Mucinex Er PO 1,200 mg BID MARISABEL Administration Hydrophilic Ointment 1 applic 09/06/18 10:21 Vaseline Lip Therapy TP DIRECT PRN Dry Lips Ceftriaxone Sodium 2 gm in 100 mls @ 200 mls/hr 09/07/18 15:00 09/09/18 13:04 Rocephin/Ns 2 Gm/100 Ml IV 200 mls/hr Q24HR MARISABEL Administration Protocol Levofloxacin 750 mg 09/10/18 10:00 Levaquin PO Q24HR MARISABEL Lorazepam 2 mg 09/06/18 13:01 Ativan PO Q1H PRN CIWA-Ar 8-15 Lorazepam 4 mg 09/06/18 13:01 09/09/18 05:03 Ativan IV 4 mg Q1H PRN Administration CIWA-Ar 16-25 Lorazepam 4 mg 09/06/18 13:01 Ativan IV Q15MIN PRN CIWA-Ar >25 Multivitamins 1 each 09/07/18 10:00 09/09/18 13:05 Theragran Tab PO 1 each QDAY MARISABEL Administration Ondansetron HCl 4 mg 09/04/18 00:10 09/06/18 01:20 Zofran IV 4 mg Q4H PRN Administration Nausea And Vomiting Oxycodone/Acetaminophen 1 tab 09/06/18 15:27 09/09/18 04:39 Percocet 5/325 PO 1 tab Q6H PRN Administration Pain, Moderate (4-6) Sodium Chloride 10 ml 09/04/18 10:00 09/09/18 13:06 Sodium Chloride Flush Syringe 10 Ml IV 10 ml BID MARISABEL Administration Sodium Chloride 10 ml 09/04/18 00:10 Sodium Chloride Flush Syringe 10 Ml IV PRN PRN LINE FLUSH Trimethoprim/Sulfamethoxazole 2 each 09/09/18 08:00 09/09/18 13:06 Bactrim Ds PO Not Given Q8HR MARISABEL
--- NOTE | 2018-09-09 18:21 | Cat Scan Report ---
PROCEDURE: CT HEAD/BRAIN WO CON TECHNIQUE: CT images of the head were obtained without the use of IV contrast HISTORY: AMS COMPARISONS: None available FINDINGS: There is no CT evidence of intracranial mass, hemorrhage, acute territorial infarction, or hydrocepha aristides. The intracranial arteries are symmetric in density. Calvarium is intact. There is minimal bilate ral ethmoid sinus mucosal thickening. The mastoids are aerated. IMPRESSION: No CT evidence of acute abnormality. Mild sinus disease. This document is electronically signed by Nara Kirby MD., September 09 2018 06:19:25 PM ET
[2018-09-09] MEDS: ZOFRAN IV PRN (21:52)
[2018-09-09] MEDS: LOVENOX SUB-Q SCH (22:41)
[2018-09-10] MEDS: TYLENOL PO PRN ×3 (00:54→23:28)
[2018-09-10 02:28] LABS: Hemoglobin 11.6 gm/dl (11.8-15.2)
[2018-09-10 02:46] LABS: BUN/Creatinine Ratio 5; Blood Urea Nitrogen 4 mg/dL (9-20); Calcium 7.9 mg/dL (8.4-10.2); Hemolysis Index 4
[2018-09-10] MEDS: BACTRIM DS PO SCH ×3 (08:56→22:23)
[2018-09-10] MEDS ORDERED: XYLOCAINE 1% 20 mL ONE (09:02)
[2018-09-10] MEDS ORDERED: LEVAQUIN PO SCH (10:00)
--- NOTE | 2018-09-10 10:23 | Fluoroscopy Report ---
FLUOROSCOPY LUMBAR PUNCTURE History: HIV, altered mental status. Description of procedure: Informed consent was obtained. Sterile technique was utilized. 1% lidocaine for skin anesthesia. One fluoroscopic image was saved. Using fluoroscopy guidance, lumbar puncture was performed at the L3-4 level. There was spontaneous return of clear CSF. 4 CSF tubes were collected totaling approximately 8 cc for laboratory analysis. No complications. Impression: Successful fluoroscopy-guided lumbar puncture.
--- NOTE | 2018-09-10 10:25 | Procedure Note ---
Date of procedure: 09/10/18 Pre-op diagnosis: HIV, alterned mental status Post-op diagnosis: same Procedure: flouroscopy guided lumbar puncture Findings: none Anesthesia: local Surgeon: CONSTANCE DE LOS SANTOS Estimated blood loss: none Pathology: list (4 csf tubes) Specimen disposition: to lab Condition: stable Disposition: floor
--- NOTE | 2018-09-10 10:30 | Progress Note ---
Assessment and Plan Cultures: 09/03/2018 blood culture: No growth 09/04/2018 cryptococcal antigen: Negative Assessment: 32 y/o man with no medical history except for tobacco and EOTH abuse, MSM; admitted on 09/03/2018 due to 2-week history of cough with yellow sputum production and chest pressure upon coughing 1) SIRS v/s sepsis: Noted Fever Trevon 103. 0. Etiology unclear. DDx: CAP, newly diagnosed HIV, +/- PJP, +/- acute mononucleosis +/- acute HCV +/- less tick borne. Doubt autoimmune in light of low CRP. - Blood culture 09/03/2018 no growth today. - UA neg - HCV serology positive. - HBV serology negative. - HIV rapid negative and p24 Ag negative - Influenza PCR negative. - CXR neg. - CTA showed no evidence of PE, bibasilar subsegmental atelectasis greater on the left than the right and diffuse fatty infiltration of the liver - LDH - 515 - CRP - .30 -Urine Legionella AG - negative 2) Acute HIV: newly diagnosed. CD4= 169/171, VL= >10,000,000 .Will order HIV genotype to determine HAART regimen. Continue bactrim DS 2 tabs TID to cover PJP. Mother and Father in the room, aware of HIV status. 3) Recent pneumonia: seen at [facility] ED on 08/15/2018 visit showed WBC 17K, AST 213/ALT 313, bili 1.4. Blood cultures negative. CXR showed lingular and LLL pneumonia. Treated with doxycycline for 10 days. 4) Elevated LFTs: ? from HCV +/- acute antiretroviral syndrome +/- acute mononucleosis +/- acute ETOh hepatitis +/- doubt leptospirosis or autoimmune. LFTs improving. 5) History of syphilis: RPR titer is 1:16. Reports syphilis diagnosis was this year and was treated with IM PCN shot at [place]. 6) Neutropenia continuing. thrombocytopenia resolved. 7) CAP: repeat chest xray results are consistent with bilateral pneumonia with pleural effusions. 8) Acute encephalopathy: Improved. Head CT shows no evidence of acute abnormality. Lumbar Puncture done 09/10/18, CSF wbc 0 rbc 0 Seg 0 Lymph 0, protein 21, glucose 69 which is not c/w meningitis. F/u - CSF VDRL, Crytococcal and CMV PCR. Recommendations: - f/u DARVIN with reflex, C3, C4 - f/u EBV serology and EBV serum PCR, and CMV serology and EBV serum PCR - continue fluconazole 100mg PO every 24 hours, D7 - Continue Ceftriaxone 2gm IV every 24 hours and Levofloxacin 750mg IV every 24 hours, D4 - Continue bactrim DS 2 tabs TID to cover PJP for newly diagnosed HIV - continue levaquin 750mg PO q 24, D7of D7- last dose today - f/u CMV DNA and HIV genotype to determine HAART regimine - f/u VDRL, Crytococcal and CMV PCR - repeat Chest xray today Eileen Peña NP [facility] M: [phone] O:[phone] Subjective Date of service: 09/10/18 Principal diagnosis: Fever, Abnl LFTs Interval history: Patient seen and examined. Mentation improved, fully oriented. No tremors. Fevers continuing. Mother and Dad at beside. Objective - Exam Narrative Exam: Constitutional: Awake. Alert. No acute distress Head, Ears, Nose: Normocephalic, atraumatic. External ears, nose normal Eyes: Conjunctivae/corneas clear. No icterus. No ptosis. Neck: Supple, no meningeal signs Oral: dentition fair, no thrush Cardiovascular: S1, S2 normal. Respiratory: Good air entry, +tachypnea GI: Soft, non-tender; bowel sounds normal. No peritoneal signs Musculoskeletal: No pedal edema, no cyanosis. Skin: No rash or abscess Hem/Lymphatic: No palpable cervical or supraclavicular nodes. No lymphangitis Psych: affect : good Neurological: Alert, awake, oriented. - Constitutional Vitals: Vital Signs Temp Pulse Resp BP Pulse Ox 100.0 F H 110 H 20 140/91 100 09/10/18 05:40 09/10/18 06:51 09/10/18 06:51 09/10/18 05:40 09/10/18 06:51 Temperature -Last 24 Hours Temperature 100.0 F Temperature 100.2 F Temperature 103.0 F Temperature 103.0 F Temperature 99.9 F - Labs CBC & Chem 7: 09/10/18 02:10 09/10/18 02:10 Labs: Abnormal lab results 03/22/19 03/28/19 03/28/19 Range/Units 16:06 02:10 02:10 Hgb 11.6 L (11.8-15.2) gm/dl Hct 32.0 L (35.5-45.6) % Sodium 133 L (137-145) mmol/L Potassium 3.5 L (3.6-5.0) mmol/L Carbon Dioxide 21 L (22-30) mmol/L BUN 4 L (9-20) mg/dL Glucose 126 H (75-100) mg/dL Calcium 7.9 L (8.4-10.2) mg/dL HIV-1 RNA PCR copies/ml >10.0e6 H Copies/mL HIV-1 RNA (PCR) log >7.00 H Log cps/mL
--- NOTE | 2018-09-10 10:33 | Progress Note ---
Assessment and Plan Assessment and plan: 32-year-old man who presents to the hospital with fever. He was treated at [facility] 2 weeks ago for community acquired pneumonia and was treated with antibiotics, the patient reports compliance of those antibiotics CT amgio chest; no evidence of PE diffuse fatty infiltration of the liver Labs, UA is negative for UTI, hepatitis serology is only positive for positive hep C antibody, rapid HIV is negative, rapid influenza is negative Diagnoses ID acute HIV viral syndrome Hep C Sepsis Fever hx of syphillis, earlier this year, rx with PCN at [facility] Acute metabolic encephalopathy GI Transaminitis Severe hyponatremia FEN-renal Hypochloremia Hematology Leukopenia thrombocytopenia Tobacco abuse Plan - abx per ID, for LP today -HIV RNA is positive with high viral load, cd4 count 169, T.Palladium Ab positive -fup hep C viral RNA, quantitative, and genotype, LFTs improved -WBC and plt count improved -s/p isotonic IVF, sp tolvaptan on 09/08, Nephrology consult, hy ponatremia/hypochloremia likely due to hypovolemia, hyposolutemia and SIADH, improved -Patient was counseled greater than 10 minutes about tobacco cessation -DVT ppx- scds- going to LP today, no dvt ppx for 48 hours after procedure History Interval history: Review of systems Constitutional: c/o fevers and malaise CVS: No chest pain, no orthopnea, no dyspnea on exertion, no pedal edema GI: No abdominal pain, no diarrhea, no vomiting, no constipation Respiratory: No shortness of breath, no wheezing, no coughing Hospitalist Physical - Physical exam Narrative exam: General.: Appears well, no distress, non toxic appearance HEENT: Moist mucous membranes, extraocular muscles intact, no lymphadenopathy Neck: supple Cardiac: S1-S2 heard Lungs: clear to auscultation bilaterally Abdomen: soft , nontender, nondistended, bowel sounds positive Extremities: no edema clubbing or cyanosis Skin: no rash or lesions Neurologic: confused and lethargic Psych: calm, and cooperative - Constitutional Vitals: Temp Pulse Resp BP Pulse Ox 100.0 F H 110 H 20 140/91 100 09/10/18 05:40 09/10/18 06:51 09/10/18 06:51 09/10/18 05:40 09/10/18 06:51 Results - Labs CBC & Chem 7: 09/10/18 02:10 09/10/18 02:10 Labs: Laboratory Last Values WBC 3.5 K/mm3 (4.5-11.0) L 09/07/18 11:22 RBC 4.22 M/mm3 (3.65-5.03) 09/07/18 11:22 Hgb 11.6 gm/dl (11.8-15.2) L 09/10/18 02:10 Hct 32.0 % (35.5-45.6) L 09/10/18 02:10 MCV 84 fl (84-94) 09/07/18 11:22 MCH 30 pg (28-32) 09/07/18 11:22 MCHC 36 % (32-34) H 09/07/18 11:22 RDW 13.1 % (13.2-15.2) L 09/07/18 11:22 Plt Count 224 K/mm3 (140-440) 09/10/18 02:10 Lymph % (Auto) 17.8 % (13.4-35.0) 09/07/18 11:22 [place] % (Auto) 14.7 % (0.0-7.3) H 09/07/18 11:22 Eos % (Auto) 0.2 % (0.0-4.3) 09/07/18 11:22 Baso % (Auto) 0.6 % (0.0-1.8) 09/07/18 11:22 Lymph # 0.6 K/mm3 (1.2-5.4) L 09/07/18 11:22 [place] # 0.5 K/mm3 (0.0-0.8) 09/07/18 11:22 Eos # 0.0 K/mm3 (0.0-0.4) 09/07/18 11:22 Baso # 0.0 K/mm3 (0.0-0.1) 09/07/18 11:22 Add Manual Diff Complete 09/04/18 09:56 Total Counted 100 09/04/18 09:56 Seg Neutrophils % 66.7 % (40.0-70.0) 09/07/18 11:22 Seg Neuts % (Manual) 90.0 % (40.0-70.0) H 09/04/18 09:56 Band Neutrophils % 3.0 % 09/04/18 09:56 Lymphocytes % (Manual) 7.0 % (13.4-35.0) L 09/04/18 09:56 Reactive Lymphs % (Man) 0 % 09/04/18 09:56 Monocytes % (Manual) 0 % (0.0-7.3) 09/04/18 09:56 Eosinophils % (Manual) 0 % (0.0-4.3) 09/04/18 09:56 Basophils % (Manual) 0 % (0.0-1.8) 09/04/18 09:56 Metamyelocytes % 0 % 09/04/18 09:56 Myelocytes % 0 % 09/04/18 09:56 Promyelocytes % 0 % 09/04/18 09:56 Blast Cells % 0 % 09/04/18 09:56 Nucleated RBC % Not Reportable 09/04/18 09:56 Seg Neutrophils # 2.4 K/mm3 (1.8-7.7) 09/07/18 11:22 Seg Neutrophils # Man 1.7 K/mm3 (1.8-7.7) L 09/04/18 09:56 Band Neutrophils # 0.1 K/mm3 09/04/18 09:56 Abs Lymphs (Manual) 405 cells/uL (850-3900) L 09/04/18 16:06 Lymphocytes # (Manual) 0.1 K/mm3 (1.2-5.4) L 09/04/18 09:56 Abs React Lymphs (Man) 0.0 K/mm3 09/04/18 09:56 Monocytes # (Manual) 0.0 K/mm3 (0.0-0.8) 09/04/18 09:56 Eosinophils # (Manual) 0.0 K/mm3 (0.0-0.4) 09/04/18 09:56 Basophils # (Manual) 0.0 K/mm3 (0.0-0.1) 09/04/18 09:56 Metamyelocytes # 0.0 K/mm3 09/04/18 09:56 Myelocytes # 0.0 K/mm3 09/04/18 09:56 Promyelocytes # 0.0 K/mm3 09/04/18 09:56 Blast Cells # 0.0 K/mm3 09/04/18 09:56 WBC Morphology Not Reportable 09/04/18 09:56 Hypersegmented Neuts Not Reportable 09/04/18 09:56 Hyposegmented Neuts Not Reportable 09/04/18 09:56 Hypogranular Neuts Not Reportable 09/04/18 09:56 Smudge Cells Not Reportable 09/04/18 09:56 Toxic Granulation Not Reportable 09/04/18 09:56 Toxic Vacuolation Not Reportable 09/04/18 09:56 Dohle Bodies Not Reportable 09/04/18 09:56 Pelger-Huet Anomaly Not Reportable 09/04/18 09:56 Rain Rods Not Reportable 09/04/18 09:56 Platelet Estimate Consistent w auto 09/04/18 09:56 Clumped Platelets Not Reportable 09/04/18 09:56 Plt Clumps, EDTA Not Reportable 09/04/18 09:56 Large Platelets Not Reportable 09/04/18 09:56 Giant Platelets Not Reportable 09/04/18 09:56 Platelet Satelliting Not Reportable 09/04/18 09:56 Plt Morphology Comment Not Reportable 09/04/18 09:56 RBC Morphology Normal 09/04/18 09:56 Dimorphic RBCs Not Reportable 09/04/18 09:56 Polychromasia Not Reportable 09/04/18 09:56 Hypochromasia Not Reportable 09/04/18 09:56 Poikilocytosis Not Reportable 09/04/18 09:56 Anisocytosis Not Reportable 09/04/18 09:56 Microcytosis Not Reportable 09/04/18 09:56 Macrocytosis Not Reportable 09/04/18 09:56 Spherocytes Not Reportable 09/04/18 09:56 Pappenheimer Bodies Not Reportable 09/04/18 09:56 Sickle Cells Not Reportable 09/04/18 09:56 Target Cells Not Reportable 09/04/18 09:56 Tear Drop Cells Not Reportable 09/04/18 09:56 Ovalocytes Not Reportable 09/04/18 09:56 Helmet Cells Not Reportable 09/04/18 09:56 [place] Bodies Not Reportable 09/04/18 09:56 [place] Rings Not Reportable 09/04/18 09:56 [place] Cells Not Reportable 09/04/18 09:56 Bite Cells Not Reportable 09/04/18 09:56 Crenated Cell Not Reportable 09/04/18 09:56 Elliptocytes Not Reportable 09/04/18 09:56 Acanthocytes (Spur) Not Reportable 09/04/18 09:56 Rouleaux Not Reportable 09/04/18 09:56 Hemoglobin C Crystals Not Reportable 09/04/18 09:56 Schistocytes Not Reportable 09/04/18 09:56 Malaria parasites Not Reportable 09/04/18 09:56 Cain Bodies Not Reportable 09/04/18 09:56 Hem Pathologist Commnt No 09/04/18 09:56 PT 12.4 Sec. (12.2-14.9) 09/06/18 16:49 INR 0.87 (0.87-1.13) 09/06/18 16:49 APTT 35.6 Sec. (24.2-36.6) 09/06/18 16:49 Sodium 133 mmol/L (137-145) L 09/10/18 02:10 Potassium 3.5 mmol/L (3.6-5.0) L 09/10/18 02:10 Chloride 101.4 mmol/L (98-107) 09/10/18 02:10 Carbon Dioxide 21 mmol/L (22-30) L 09/10/18 02:10 Anion Gap 14 mmol/L 09/10/18 02:10 BUN 4 mg/dL (9-20) L 09/10/18 02:10 Creatinine 0.8 mg/dL (0.8-1.5) D 09/10/18 02:10 Estimated GFR > 60 ml/min 09/10/18 02:10 BUN/Creatinine Ratio 5 % 09/10/18 02:10 Glucose 126 mg/dL (75-100) H 09/10/18 02:10 Osmolality 260 Mosm/kg 09/04/18 16:06 Lactic Acid 1.10 mmol/L (0.7-2.0) 09/03/18 22:51 Calcium 7.9 mg/dL (8.4-10.2) L 09/10/18 02:10 Total Bilirubin 0.70 mg/dL (0.1-1.2) 09/07/18 04:32 Direct Bilirubin 0.2 mg/dL (0-0.2) 09/05/18 05:27 Indirect Bilirubin 0.2 mg/dL 09/05/18 05:27 AST 131 units/L (5-40) H 09/07/18 04:32 ALT 40 units/L (7-56) 09/07/18 04:32 Alkaline Phosphatase 55 units/L (35-129) 09/07/18 04:32 Ammonia 42.0 umol/L (25-60) 09/07/18 04:32 Lactate Dehydrogenase 515 units/L (91-180) H 09/06/18 07:11 Total Creatine Kinase 901 units/L (55-170) H 09/09/18 04:54 C-Reactive Protein 0.30 mg/dL (0.00-1.30) 09/04/18 16:06 Total Protein 5.3 g/dL (6.3-8.2) L 09/07/18 04:32 Albumin 2.4 g/dL (3.9-5) L 09/07/18 04:32 Albumin/Globulin Ratio 0.8 % 09/07/18 04:32 Ceruloplasmin 32 mg/dL (18-36) 09/07/18 04:32 TSH 0.872 mlU/mL (0.270-4.200) 09/05/18 05:27 Free T4 0.66 ng/dL (0.76-1.46) L 09/05/18 05:27 Thyroxine (T4) 4.4 ug/dL (4.0-12.0) 09/05/18 05:57 Total Cortisol 17.3 mcg/dL () 09/05/18 05:27 Urine Color Marlene (Yellow) 09/03/18 21:51 Urine Turbidity Clear (Clear) 09/03/18 21:51 Urine pH 6.0 (5.0-7.0) 09/03/18 21:51 Ur Specific [place] 1.029 (1.003-1.030) 09/03/18 21:51 Urine Protein >500 mg/dL (Negative) 09/03/18 21:51 Urine Glucose (UA) Neg mg/dL (Negative) 09/03/18 21:51 Urine Ketones Neg mg/dL (Negative) 09/03/18 21:51 Urine Blood Mod (Negative) 09/03/18 21:51 Urine Nitrite Neg (Negative) 09/03/18 21:51 Urine Bilirubin Neg (Negative) 09/03/18 21:51 Urine Urobilinogen < 2.0 mg/dL (<2.0) 09/03/18 21:51 Ur Leukocyte Esterase Neg (Negative) 09/03/18 21:51 Urine WBC (Auto) 4.0 /HPF (0.0-6.0) 09/03/18 21:51 Urine RBC (Auto) < 1.0 /HPF (0.0-6.0) 09/03/18 21:51 Urine Mucus Few /HPF 09/03/18 21:51 Urine Osmolality 637 Mosm/kg 09/05/18 04:00 Urine Creatinine 154.8 mg/dL (0.1-20.0) H 09/04/18 04:00 Protein/Creatinin Ratio 2.78 09/04/18 04:00 Urine Sodium 111 mmol/L 09/05/18 04:00 Urine Potassium 32.10 mmol/L 09/05/18 04:00 Urine Chloride 93.9 mmolL (110-250) L 09/05/18 04:00 Urine Total Protein 431 mg/dL (5-11.8) H 09/04/18 04:00 Complement C3 87 mg/dL (82-185) 09/04/18 16:06 Complement C4 25 mg/dL (15-53) 09/04/18 16:06 Lymph Enumerat CD4/CD8 1.38 (0.86-5.00) 09/04/18 16:06 % CD3 Cells 74 % (57-85) 09/04/18 16:06 Absolute CD3 Count 301 cells/uL (840-3060) L 09/04/18 16:06 % CD4 Cells 42 % (30-61) 09/04/18 16:06 Absolute CD4 Count 177 cells/uL (490-1740) L 09/04/18 16:06 % CD8 Cells 31 % (12-42) 09/04/18 16:06 Absolute CD8 Count 129 cells/uL (180-1170) L 09/04/18 16:06 % CD19 Cells 8 % (6-29) 09/04/18 16:06 Absolute CD19 Count 31 cells/uL (110-660) L 09/04/18 16:06 RPR Titer 1:16 09/03/18 21:46 RPR Reactive (Nonreactive) 09/03/18 21:46 T.pallidum Ab (FTA-ABS) Reactive (Nonreactive) H 09/04/18 21:46 Hepatitis A IgM Ab Non-reactive (NonReactive) 09/03/18 21:46 Hep Bs Antigen Non-reactive (Negative) 09/03/18 21:46 Hep B Core IgM Ab Non-reactive (NonReactive) 09/03/18 21:46 Hepatitis C Antibody Reactive (NonReactive) A 09/03/18 21:46 HIV-1 RNA PCR copies/ml >10.0e6 Copies/mL H 09/04/18 16:06 HIV-1 RNA (PCR) log >7.00 Log cps/mL H 09/04/18 16:06 HIV 1&2 Antibody Rapid Non react (Non React) 09/03/18 21:46 HIV P24 Antigen Non react (Non React) 09/03/18 21:46 Influenza A (Rapid) Negative (Negative) 09/03/18 21:51 Influenza A (RT-PCR) Negative (Negative) 09/04/18 Unknown Influenza B (Rapid) Negative (Negative) 09/03/18 21:51 Influenza B (RT-PCR) Negative (Negative) 09/04/18 Unknown Urine Legionella Ag Not detected (Not Detected) 09/05/18 04:00 Active Medications - Current Medications Current Medications: Generic Name Dose Route Start Last Admin Trade Name Freq PRN Reason Stop Dose Admin Acetaminophen 650 mg 09/06/18 15:27 09/10/18 00:54 Tylenol PO 650 mg Q6H PRN Administration Pain MILD(1-3)/Fever >100.5/[place] Enoxaparin Sodium 40 mg 09/06/18 22:00 09/09/18 22:41 Lovenox SUB-Q Not Given QDAY@2200 MARISABEL Fluconazole 100 mg 09/04/18 10:00 09/09/18 13:05 Diflucan PO 100 mg QDAY MARISABEL Administration Guaifenesin 1,200 mg 09/05/18 22:00 09/09/18 22:39 Mucinex Er PO 1,200 mg BID MARISABEL Administration Hydrophilic Ointment 1 applic 09/06/18 10:21 Vaseline Lip Therapy TP DIRECT PRN Dry Lips Ceftriaxone Sodium 2 gm in 100 mls @ 200 mls/hr 09/07/18 15:00 09/09/18 13:04 Rocephin/Ns 2 Gm/100 Ml IV 200 mls/hr Q24HR MARISABEL Administration Protocol Levofloxacin 750 mg 09/10/18 10:00 Levaquin PO Q24HR MARISABEL Lorazepam 2 mg 09/06/18 13:01 Ativan PO Q1H PRN CIWA-Ar 8-15 Lorazepam 4 mg 09/06/18 13:01 09/09/18 05:03 Ativan IV 4 mg Q1H PRN Administration CIWA-Ar 16-25 Lorazepam 4 mg 09/06/18 13:01 Ativan IV Q15MIN PRN CIWA-Ar >25 Multivitamins 1 each 09/07/18 10:00 09/09/18 13:05 Theragran Tab PO 1 each QDAY MARISABEL Administration Ondansetron HCl 4 mg 09/04/18 00:10 09/09/18 21:52 Zofran IV 4 mg Q4H PRN Administration Nausea And Vomiting Oxycodone/Acetaminophen 1 tab 09/06/18 15:27 09/09/18 04:39 Percocet 5/325 PO 1 tab Q6H PRN Administration Pain, Moderate (4-6) Sodium Chloride 10 ml 09/04/18 10:00 09/09/18 22:41 Sodium Chloride Flush Syringe 10 Ml IV 10 ml BID MARISABEL Administration Sodium Chloride 10 ml 09/04/18 00:10 Sodium Chloride Flush Syringe 10 Ml IV PRN PRN LINE FLUSH Trimethoprim/Sulfamethoxazole 2 each 09/09/18 08:00 09/10/18 08:56 Bactrim Ds PO Not Given Q8HR MARISABEL
[2018-09-10 10:58] LABS: Glucose,CSF 69 mg/dL
[2018-09-10 11:04] LABS: Appearance,CSF Clear; Red Blood Cell,CSF 0 /mm3 (0-0); White Blood Cell,CSF 0 /mm3 (1-10)
[2018-09-10 11:05] LABS: Basophils CSF 0 %
[2018-09-10] MEDS: THERAGRAN Tab PO SCH (11:38)
[2018-09-10] MEDS: DIFLUCAN PO SCH (11:38)
[2018-09-10] MEDS: MUCINEX ER PO SCH ×2 (11:38→22:22)
[2018-09-10] MEDS: ROCEPHIN/NS 2 GM/100 ML 2 GM/100 ML BAG IV SCH (11:39)
[2018-09-10] MEDS: SODIUM CHLORIDE FLUSH SYRINGE 10 ML IV SCH ×2 (11:39→22:23)
[2018-09-10 12:27] LABS: ANA Screen, IFA Negative (Negative)
--- NOTE | 2018-09-10 15:49 | Progress Note ---
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 na normalized after 1 dose of tolvaptan. cont fluid restriction to 1.5L/day (2) Proteinuria Current Visit: Yes Status: Acute Plan to address problem: Unclear etiology but it is in the setting of microscopic hematuria, a positive hep C antibody as well as hypoalbuminemia. hep C related MPGN cannot be ruled out. He does not have any edema on physical exam. urine protein/cr ratio ~2.78g/g. Pt is tested positive of HIV 1. with VL > 10e6 copies. (3) Transaminitis Current Visit: Yes Status: Acute Plan to address problem: Abd US was normal. We'll also follow-up on further hep C serologies. LFTs improving (4) Thrombocytopenia Current Visit: Yes Status: Acute Plan to address problem: stable Subjective Date of service: 09/10/18 Principal diagnosis: Fever, Abnl LFTs Interval history: Pt awake, alert, in NAD, denies fever, chills, n/v/d, CP , SOB. Objective - Vital Signs Vital signs: Vital Signs - 12hr 09/10/18 09/10/18 09/10/18 05:40 06:51 11:17 Temperature 100.0 F H 102.8 F H Pulse Rate 110 H 96 H Respiratory 20 20 24 Rate Blood Pressure 140/91 126/75 O2 Sat by Pulse 100 94 Oximetry - General Appearance General appearance: well-developed, well-nourished, appears stated age EENT: ATNC, PERRL, mucous membranes moist Neck: no JVD Respiratory: Present: Clear to Ascultation Cardiology: regular, S1S2 Gastrointestinal: normoactive bowel sounds Integumentary: no rash, other (no edema ) Neurologic: no focal deficit, alert and oriented x3, strength 5/5, CN 3-12 intact Psychiatric: mood/affect appropriate, cooperative - Lab 09/10/18 02:10 09/10/18 02:10 Most recent lab results Calcium 7.9 mg/dL (8.4-10.2) L 09/10/18 02:10 Urine Creatinine 154.8 mg/dL (0.1-20.0) H 09/04/18 04:00 Urine Sodium 111 mmol/L 09/05/18 04:00 Urine Total Protein 431 mg/dL (5-11.8) H 09/04/18 04:00 Medications & Allergies - Medications Allergies/Adverse Reactions: Allergies No Known Allergies Allergy (Unverified 06/07/13 12:19) Home Medications: Home Medications Medication Instructions Recorded Confirmed Last Taken Type No Known Home Medications [No 09/03/18 09/03/18 Unknown History Reported Home Medications] Active Medications: Generic Name Dose Route Start Last Admin Trade Name Freq PRN Reason Stop Dose Admin Acetaminophen 650 mg 09/06/18 15:27 09/10/18 11:35 Tylenol PO 650 mg Q6H PRN Administration Pain MILD(1-3)/Fever >100.5/[place] Enoxaparin Sodium 40 mg 09/06/18 22:00 09/09/18 22:41 Lovenox SUB-Q Not Given QDAY@2200 MARISABEL Fluconazole 100 mg 09/04/18 10:00 09/10/18 11:38 Diflucan PO 100 mg QDAY MARISABEL Administration Guaifenesin 1,200 mg 09/05/18 22:00 09/10/18 11:38 Mucinex Er PO 1,200 mg BID MARISABEL Administration Hydrophilic Ointment 1 applic 09/06/18 10:21 Vaseline Lip Therapy TP DIRECT PRN Dry Lips Ceftriaxone Sodium 2 gm in 100 mls @ 200 mls/hr 09/07/18 15:00 09/10/18 11:39 Rocephin/Ns 2 Gm/100 Ml IV 200 mls/hr Q24HR MARISABEL Administration Protocol Levofloxacin 750 mg 09/10/18 10:00 09/10/18 11:38 Levaquin PO 750 mg Q24HR MARISABEL Administration Lorazepam 2 mg 09/06/18 13:01 Ativan PO Q1H PRN CIWA-Ar 8-15 Lorazepam 4 mg 09/06/18 13:01 09/09/18 05:03 Ativan IV 4 mg Q1H PRN Administration CIWA-Ar 16-25 Lorazepam 4 mg 09/06/18 13:01 Ativan IV Q15MIN PRN CIWA-Ar >25 Multivitamins 1 each 09/07/18 10:00 09/10/18 11:38 Theragran Tab PO 1 each QDAY MARISABEL Administration Ondansetron HCl 4 mg 09/04/18 00:10 09/09/18 21:52 Zofran IV 4 mg Q4H PRN Administration Nausea And Vomiting Oxycodone/Acetaminophen 1 tab 09/06/18 15:27 09/09/18 04:39 Percocet 5/325 PO 1 tab Q6H PRN Administration Pain, Moderate (4-6) Sodium Chloride 10 ml 09/04/18 10:00 09/10/18 11:39 Sodium Chloride Flush Syringe 10 Ml IV 10 ml BID MARISABEL Administration Sodium Chloride 10 ml 09/04/18 00:10 Sodium Chloride Flush Syringe 10 Ml IV PRN PRN LINE FLUSH Trimethoprim/Sulfamethoxazole 2 each 09/09/18 08:00 09/10/18 08:56 Bactrim Ds PO Not Given Q8HR MARISABEL
--- NOTE | 2018-09-10 16:56 | XRay Report ---
PROCEDURES: XR CHEST 1V AP TECHNIQUE: AP portable view of the chest. HISTORY: pneumonia COMPARISON: CXR 09/07/2018 FINDINGS: Lines, tubes, and devices: N/A Lungs and pleura: Trachea is normal in position. Alveolar infiltrates are scattered throughout both l clarence sung in a distribution similar to the previous study. Findings are consistent with pneumonia, u nchanged. Cardiomediastinal silhouette: Cardiac and mediastinal silhouettes are unremarkable. Other: Bony structures are intact. IMPRESSION: Bilateral alveolar infiltrates, similar to the previous study. Findings are consistent with pneumonia This document is electronically signed by Rachell Sarabia MD., September 10 2018 04:54:11 PM ET
[2018-09-10] MEDS: LOVENOX SUB-Q SCH (22:23)
[2018-09-11] MEDS: BACTRIM DS PO SCH ×3 (05:33→22:10)
[2018-09-11 06:10] LABS: BUN/Creatinine Ratio 9; Blood Urea Nitrogen 7 mg/dL (9-20); Hemolysis Index 1
--- NOTE | 2018-09-11 08:49 | Progress Note ---
Assessment and Plan Cultures: 09/03/2018 blood culture: No growth 09/04/2018 cryptococcal antigen: Negative Assessment: 32 y/o man with no medical history except for tobacco and EOTH abuse, MSM; admitted on 09/03/2018 due to 2-week history of cough with yellow sputum production and chest pressure upon coughing 1) SIRS v/s sepsis: Noted high fevers continuing. Etiology unclear. DDx: CAP, newly diagnosed HIV, +/- PJP, +/- acute mononucleosis +/- acute HCV +/- less tick borne. - Blood culture 09/03/2018 no growth today. - UA neg - HCV serology positive. - HBV serology negative. - HIV rapid negative and p24 Ag negative - Influenza PCR negative. - CXR neg. - CTA showed no evidence of PE, bibasilar subsegmental atelectasis greater on the left than the right and diffuse fatty infiltration of the liver - LDH - 515 - CRP - .30 -Urine Legionella AG - negative -DARVIN negative -C3/C4 negative 2) Acute HIV: newly diagnosed. CD4= 169/171, VL= >10,000,000. Follow up HIV ge notype to determine HAART regimen. Continue bactrim DS 2 tabs TID to cover PJP. Parents aware of patients HIV status. 3) Recent pneumonia: seen at [facility] ED on 08/15/2018 visit showed WBC 17K, AST 213 /ALT 313, bili 1.4. Blood cultures negative. CXR showed lingular and LLL pneumonia. Treated with doxycycline for 10 days. 4) Elevated LFTs: ? from HCV +/- acute antiretroviral syndrome +/- acute mono nucleosis +/- acute ETOh hepatitis +/- doubt leptospirosis or autoimmune. LFTs improving. 5) History of syphilis: RPR titer is 1:16. Reports syphilis diagnosis was this year and was treated with IM PCN shot at [place]. 6) Neutropenia continuing. thrombocytopenia resolved 7) CAP: r chest xray results are consistent with bilateral pneumonia with pleural effusions, repeat chest xray 08/31/18 no change. Still tachypneic with fevers. Will order repeat CT Chest. 8) Acute encephalopathy: Improved. Head CT shows no evidence of acute abnormality. Lumbar Puncture done 09/10/18, CSF wbc 0 rbc 0 Seg 0 Lymph 0, protein 21, glucose 69 which is not c/w meningitis. F/u - CSF VDRL, Crytococcal and CMV PCR. 9) New onset Epistaxis: will order CT sinus with contrast Recommendations: - f/u EBV serology and EBV serum PCR, and CMV serology and EBV serum PCR - continue fluconazole 100mg PO every 24 hours, D8 - Continue Ceftriaxone 2gm IV every 24 hours and Levofloxacin 750mg IV every 24 hours, D5 - Continue bactrim DS 2 tabs TID to cover PJP for newly diagnosed HIV - f/u CMV DNA and HIV genotype to determine HAART regimine - f/u VDRL, Crytococcal and CMV PCR -Order repeat CT chest -Order CT sinus for new onset epistaxis Dr. Tellez will be almond sorter this weekend [phone], please call for questions. [facility] M: [phone] O:[phone] Subjective Date of service: 09/11/18 Principal diagnosis: Fever, Abnl LFTs Interval history: Patient seen and examined. Complained of generalized weakness, no pain. + Epistaxis, tachypnea and fevers. Family not a bedside. Objective - Exam Narrative Exam: Constitutional: Awake. Alert. No acute distress Head, Ears, Nose: Normocephalic, atraumatic. External ears, nose normal Eyes: Conjunctivae/corneas clear. No icterus. No ptosis. Neck: Supple, no meningeal signs Oral: dentition fair, no thrush Cardiovascular: S1, S2 normal. Respiratory: Good air entry, +tachypnea GI: Soft, non-tender; bowel sounds normal. No peritoneal signs Musculoskeletal: No pedal edema, no cyanosis. Skin: No rash or abscess Hem/Lymphatic: No palpable cervical or supraclavicular nodes. No lymphangitis Psych: affect : good Neurological: Alert, awake, oriented. - Constitutional Vitals: Vital Signs Temp Pulse Resp BP Pulse Ox 98.5 F 83 24 123/77 92 09/11/18 04:02 09/11/18 04:02 09/11/18 04:02 09/11/18 04:02 09/11/18 04:02 Temperature -Last 24 Hours Temperature 98.5 F Temperature 102.7 F Temperature 100 F Temperature 101.0 F Temperature 102.8 F - Labs CBC & Chem 7: 09/11/18 09:29 09/11/18 05:18 Labs: Abnormal lab results 09/11/18 Range/Units 05:18 Sodium 132 L (137-145) mmol/L Chloride 96.9 L (98-107) mmol/L BUN 7 L (9-20) mg/dL Calcium 8.0 L (8.4-10.2) mg/dL
[2018-09-11] MEDS: ZOFRAN IV PRN (09:12)
[2018-09-11 09:44] LABS: Basophils # (Auto) 0.1 K/mm3 (0.0-0.1); Basophils % (Auto) 1.3 % (0.0-1.8); Eosinophils % (Auto) 0.8 % (0.0-4.3); Lymphocytes # (Auto) 0.9 K/mm3 (1.2-5.4); Lymphocytes % (Auto) 18.6 % (13.4-35.0); Mean Corpuscular HGB Conc 36 % (32-34); Mean Corpuscular Volume 83 fl (84-94); Monocytes # (Auto) 0.6 K/mm3 (0.0-0.8); Monocytes % (Auto) 12.3 % (0.0-7.3); Platelet Count 229 K/mm3 (140-440); Red Blood Count 4.06 M/mm3 (3.65-5.03); Red Cell Distribution Width 12.4 % (13.2-15.2)
[2018-09-11 09:52] LABS: Hematocrit 33.8 % (35.5-45.6); Hemoglobin 12.3 gm/dl (11.8-15.2)
[2018-09-11] MEDS: DIFLUCAN PO SCH (09:57)
[2018-09-11] MEDS: SODIUM CHLORIDE FLUSH SYRINGE 10 ML IV SCH ×2 (09:57→22:10)
[2018-09-11] MEDS: ROCEPHIN/NS 2 GM/100 ML 2 GM/100 ML BAG IV SCH (09:57)
[2018-09-11] MEDS: THERAGRAN Tab PO SCH (09:57)
[2018-09-11] MEDS: MUCINEX ER PO SCH ×2 (09:57→22:09)
--- NOTE | 2018-09-11 16:46 | Progress Note ---
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 na improved with 1 dose of tolvaptan. cont fluid restriction to 1.5L/day (2) Proteinuria Current Visit: Yes Status: Acute Plan to address problem: Unclear etiology but it is in the setting of microscopic hematuria, a positive hep C antibody as well as hypoalbuminemia. urine protein/cr ratio ~2.78g/g. Pt is tested positive of HIV 1. with VL > 10e6 copies. hep C related MPGN/HIV cannot be ruled out, definitive treatment would be treatment of underlying viral diseases. (3) Transaminitis Current Visit: Yes Status: Acute Plan to address problem: Abd US was normal. We'll also follow-up on further hep C serologies. LFTs improving (4) Thrombocytopenia Current Visit: Yes Status: Acute Plan to address problem: stable Subjective Date of service: 09/11/18 Principal diagnosis: Fever, Abnl LFTs Interval history: Pt awake, alert, in NAD, denies fever, chills, n/v/d, CP , SOB. Objective - Vital Signs Vital signs: Vital Signs - 12hr 09/11/18 09/11/18 11:09 12:44 Temperature 100.4 F H Pulse Rate 93 H Pulse Rate [ 95 H Apical] Respiratory 34 H 16 Rate Blood Pressure 122/72 O2 Sat by Pulse 95 Oximetry - General Appearance General appearance: well-developed, well-nourished, appears stated age EENT: ATNC, PERRL, mucous membranes moist Neck: no JVD Respiratory: Present: Clear to Ascultation Cardiology: regular, S1S2 Gastrointestinal: normoactive bowel sounds Integumentary: no rash Neurologic: no focal deficit, alert and oriented x3, strength 5/5, CN 3-12 intact Psychiatric: mood/affect appropriate, cooperative - Lab 09/11/18 09:29 09/11/18 05:18 Most recent lab results Calcium 8.0 mg/dL (8.4-10.2) L 09/11/18 05:18 Urine Creatinine 154.8 mg/dL (0.1-20.0) H 09/04/18 04:00 Urine Sodium 111 mmol/L 09/05/18 04:00 Urine Total Protein 431 mg/dL (5-11.8) H 09/04/18 04:00 Medications & Allergies - Medications Allergies/Adverse Reactions: Allergies No Known Allergies Allergy (Unverified 06/07/13 12:19) Home Medications: Home Medications Medication Instructions Recorded Confirmed Last Taken Type No Known Home Medications [No 09/03/18 09/03/18 Unknown History Reported Home Medications] Active Medications: Generic Name Dose Route Start Last Admin Trade Name Freq PRN Reason Stop Dose Admin Acetaminophen 650 mg 09/06/18 15:27 09/10/18 23:28 Tylenol PO 650 mg Q6H PRN Administration Pain MILD(1-3)/Fever >100.5/[place] Fluconazole 100 mg 09/04/18 10:00 09/11/18 09:57 Diflucan PO 100 mg QDAY MARISABEL Administration Guaifenesin 1,200 mg 09/05/18 22:00 09/11/18 09:57 Mucinex Er PO 1,200 mg BID MARISABEL Administration Hydrophilic Ointment 1 applic 09/06/18 10:21 Vaseline Lip Therapy TP DIRECT PRN Dry Lips Ceftriaxone Sodium 2 gm in 100 mls @ 200 mls/hr 09/07/18 15:00 09/11/18 09:57 Rocephin/Ns 2 Gm/100 Ml IV 200 mls/hr Q24HR MARISABEL Administration Protocol Lorazepam 2 mg 09/06/18 13:01 Ativan PO Q1H PRN CIWA-Ar 8-15 Lorazepam 4 mg 09/06/18 13:01 09/09/18 05:03 Ativan IV 4 mg Q1H PRN Administration CIWA-Ar 16-25 Lorazepam 4 mg 09/06/18 13:01 Ativan IV Q15MIN PRN CIWA-Ar >25 Multivitamins 1 each 09/07/18 10:00 09/11/18 09:57 Theragran Tab PO 1 each QDAY MARISABEL Administration Ondansetron HCl 4 mg 09/04/18 00:10 09/11/18 09:12 Zofran IV 4 mg Q4H PRN Administration Nausea And Vomiting Oxycodone/Acetaminophen 1 tab 09/06/18 15:27 09/09/18 04:39 Percocet 5/325 PO 1 tab Q6H PRN Administration Pain, Moderate (4-6) Sodium Chloride 10 ml 03/22/19 10:00 09/11/18 09:57 Sodium Chloride Flush Syringe 10 Ml IV 10 ml BID MARISABEL Administration Sodium Chloride 10 ml 09/04/18 00:10 Sodium Chloride Flush Syringe 10 Ml IV PRN PRN LINE FLUSH Trimethoprim/Sulfamethoxazole 2 each 09/09/18 08:00 09/11/18 16:13 Bactrim Ds PO 2 each Q8HR MARISABEL Administration
[2018-09-11] MEDS: TYLENOL PO PRN ×2 (17:29→23:52)
--- NOTE | 2018-09-11 18:14 | Progress Note ---
Assessment and Plan 32-year-old man who presents to the hospital with fever. He was treated at [facility] 2 weeks ago for community acquired pneumonia and was treated with antibiotics, the patient reports compliance of those antibiotics Assessment - SIRS v/s sepsis: Noted high fevers continuing. Etiology unclear. DDx: CAP, newly diagnosed HIV, +/- PJP, - Acute HIV viral syndrome. CD 4 169/171, Viral load 10,000,000 - Hep C - Mild epistaxis - Fever - hx of syphillis, earlier this year, rx with PCN at [place] - Acute metabolic encephalopathy - Transaminitis - Severe hyponatremia - Hypochloremia - Leukopenia - Thrombocytopenia - Tobacco abuse Plan -Abx per ID, -LP , 09/10/18 showed negative Cryptococcal antigen -HIV RNA is positive with high viral load, cd4 count 169, T.Palladium Ab positive -fup hep C viral RNA, quantitative, and genotype, LFTs improved -WBC and plt count improved -s/p isotonic IVF, sp tolvaptan on 09/08, Nephrology consult, hyponatr emia/hypochloremia likely due to hypovolemia, hyposolutemia and SIADH, improved -Patient was counseled greater than 10 minutes about tobacco cessation -DVT ppx- scds-, Further hold anticoagulation b/c epistaxis. Subjective Date of service: 09/11/18 Principal diagnosis: Pneumomnia, acute HIV, Fever, Abnl LFTs Interval history: Patient is still very short of breath Objective - Exam Narrative Exam: Constitutional: Well-nourished well-developed. In no distress Head: Normocephalic atraumatic Eyes: Pupils are equal round and reactive to light Nose: No enlarged turbinates, no septal deviation. Mouth: Moist mucous membranes. Neck: Supple no thyromegaly. No bruit. No JVD Heart: Regular rate and rhythm, S1-S2 normal. No rubs murmurs or gallop Lungs: Clear to auscultation bilaterally. no rales or rhonchi Abdomen: Soft, nontender. Bowel sound are present. Extremities: No edema, no cyanosis, no clubbing. Neuro: Alert oriented Oriented x3. No focal sensory or motor deficit. Skin: No rashes or hyperpigmented spots Musculoskeletal system: No joint pain or swelling Hematological: No petechia or subcutanous hemorrhages. Immunological: No multiple septic spots on the skin Lymphatic: No generalized lymphadenopathy Psychiatry: Euthymic. Calm. - Constitutional Vitals: Vital Signs - 12hr 09/11/18 09/11/18 09/11/18 11:09 12:44 17:19 Temperature 100.4 F H 102.2 F H Pulse Rate 93 H 86 Pulse Rate [ 95 H Apical] Respiratory 34 H 16 18 Rate Blood Pressure 122/72 Blood Pressure 119/71 [Left] O2 Sat by Pulse 95 94 Oximetry - Labs CBC & Chem 7: 09/11/18 09:29 09/11/18 05:18 Labs: Abnormal lab results 09/11/18 09/11/18 Range/Units 05:18 09:29 Hct 33.8 L (35.5-45.6) % MCV 83 L (84-94) fl MCHC 36 H (32-34) % RDW 12.4 L (13.2-15.2) % Mower % (Auto) 12.3 H (0.0-7.3) % Lymph # 0.9 L (1.2-5.4) K/mm3 Sodium 132 L (137-145) mmol/L Chloride 96.9 L (98-107) mmol/L BUN 7 L (9-20) mg/dL Calcium 8.0 L (8.4-10.2) mg/dL
[2018-09-12] MEDS: BACTRIM DS PO SCH ×3 (06:12→22:05)
[2018-09-12 06:36] LABS: Hematocrit 31.7 % (35.5-45.6); Hemoglobin 11.7 gm/dl (11.8-15.2)
[2018-09-12 06:56] LABS: BUN/Creatinine Ratio 10; Blood Urea Nitrogen 7 mg/dL (9-20); Calcium 8.1 mg/dL (8.4-10.2); Hemolysis Index 10
[2018-09-12] MEDS: THERAGRAN Tab PO SCH (11:03)
[2018-09-12] MEDS: ROCEPHIN/NS 2 GM/100 ML 2 GM/100 ML BAG IV SCH (11:03)
[2018-09-12] MEDS: SODIUM CHLORIDE FLUSH SYRINGE 10 ML IV SCH ×2 (11:04→22:07)
[2018-09-12] MEDS: MUCINEX ER PO SCH ×2 (11:04→22:07)
[2018-09-12] MEDS: DIFLUCAN PO SCH (11:04)
--- NOTE | 2018-09-12 12:28 | Progress Note ---
Assessment and Plan - Patient Problems (1) Hyponatremia Current Visit: Yes Status: Acute Plan to address problem: Unclear etiology of hyponatremia but may be secondary to decreased solute intake. He may have an element of SIADH. He received one dose of tolvaptan with response noted. Levels are stable this am. Will continue to monitor, encouraged increased protein intake. No acute needs for tolvaptan today. (2) Proteinuria Current Visit: Yes Status: Acute Plan to address problem: Unclear etiology but it is in the setting of microscopic hematuria, a positive hep C antibody as well as hypoalbuminemia. UPC of 2.78 g/g creatinine.Tested positive for HIV 1 with viral load > 10^6. Cannot rule out possibility of glomerular etiology such as MPGN in the setting of Hep C or HIV. (3) Thrombocytopenia Current Visit: Yes Status: Acute Plan to address problem: Labs are stable, We will monitor closely. (4) Transaminitis Current Visit: Yes Status: Acute Plan to address problem: Abdominal ultrasound was normal. We'll also follow-up on further hep C serologies. Subjective Date of service: 09/12/18 Principal diagnosis: Pneumomnia, acute HIV, Fever, Abnl LFTs Interval history: No acute issues overnight. Labs noted, renal function is stable, serum sodium levels are overall stable. He received on dose of tolvaptan earlier this admission with brisk response noted. Objective - Vital Signs Vital signs: Vital Signs - 12hr 09/12/18 09/12/18 04:49 11:21 Temperature 99.0 F 98.4 F Pulse Rate 72 73 Respiratory 18 14 Rate Blood Pressure 116/69 104/65 O2 Sat by Pulse 96 97 Oximetry - General Appearance General appearance: well-developed, well-nourished, appears stated age EENT: ATNC, PERRL Neck: no JVD, no thyromegaly Respiratory: Present: Clear to Ascultation, Normal Exam Cardiology: regular, S1S2 Gastrointestinal: normal, normoactive bowel sounds Integumentary: no rash, warm and dry Neurologic: no focal deficit, CN 3-12 intact Psychiatric: mood/affect appropriate, cooperative - Lab 09/12/18 05:53 09/12/18 05:53 Most recent lab results Calcium 8.1 mg/dL (8.4-10.2) L 09/12/18 05:53 Urine Creatinine 154.8 mg/dL (0.1-20.0) H 09/04/18 04:00 Urine Sodium 111 mmol/L 09/05/18 04:00 Urine Total Protein 431 mg/dL (5-11.8) H 09/04/18 04:00 - Allied health notes Allied health notes reviewed: nursing Medications & Allergies - Medications Allergies/Adverse Reactions: Allergies No Known Allergies Allergy (Unverified 06/07/13 12:19) Home Medications: Home Medications Medication Instructions Recorded Confirmed Last Taken Type No Known Home Medications [No 09/03/18 09/03/18 Unknown History Reported Home Medications] Active Medications: Generic Name Dose Route Start Last Admin Trade Name Freq PRN Reason Stop Dose Admin Acetaminophen 650 mg 09/06/18 15:27 09/11/18 23:52 Tylenol PO 650 mg Q6H PRN Administration Pain MILD(1-3)/Fever >100.5/[place] Fluconazole 100 mg 09/04/18 10:00 09/12/18 11:04 Diflucan PO 100 mg QDAY MARISABEL Administration Guaifenesin 1,200 mg 09/05/18 22:00 09/12/18 11:04 Mucinex Er PO 1,200 mg BID MARISABEL Administration Hydrophilic Ointment 1 applic 09/06/18 10:21 Vaseline Lip Therapy TP DIRECT PRN Dry Lips Ceftriaxone Sodium 2 gm in 100 mls @ 200 mls/hr 09/07/18 15:00 09/12/18 11:03 Rocephin/Ns 2 Gm/100 Ml IV 200 mls/hr Q24HR MARISABEL Administration Protocol Lorazepam 2 mg 09/06/18 13:01 Ativan PO Q1H PRN CIWA-Ar 8-15 Lorazepam 4 mg 09/06/18 13:01 09/09/18 05:03 Ativan IV 4 mg Q1H PRN Administration CIWA-Ar 16-25 Lorazepam 4 mg 09/06/18 13:01 Ativan IV Q15MIN PRN CIWA-Ar >25 Multivitamins 1 each 09/07/18 10:00 09/12/18 11:03 Theragran Tab PO 1 each QDAY MARISABEL Administration Ondansetron HCl 4 mg 09/04/18 00:10 09/11/18 09:12 Zofran IV 4 mg Q4H PRN Administration Nausea And Vomiting Oxycodone/Acetaminophen 1 tab 09/06/18 15:27 09/09/18 04:39 Percocet 5/325 PO 1 tab Q6H PRN Administration Pain, Moderate (4-6) Sodium Chloride 10 ml 09/04/18 10:00 09/12/18 11:04 Sodium Chloride Flush Syringe 10 Ml IV 10 ml BID MARISABEL Administration Sodium Chloride 10 ml 09/04/18 00:10 Sodium Chloride Flush Syringe 10 Ml IV PRN PRN LINE FLUSH Trimethoprim/Sulfamethoxazole 2 each 09/09/18 08:00 09/12/18 06:12 Bactrim Ds PO 2 each Q8HR MARISABEL Administration
--- NOTE | 2018-09-12 13:13 | Progress Note ---
Assessment and Plan 32-year-old man who presents to the hospital with fever. He was treated at [facility] 2 weeks ago for community acquired pneumonia and was treated with antibiotics, the patient reports compliance of those antibiotics Assessment - SIRS v/s sepsis: Noted high fevers continuing. Etiology unclear. DDx: CAP, newly diagnosed HIV, +/- PJP, - Acute HIV viral syndrome. CD 4 169/171, Viral load 10,000,000 - Hep C - Mild epistaxis - Fever - hx of syphillis, earlier this year, rx with PCN at [place] - Acute metabolic encephalopathy - Transaminitis - Severe hyponatremia - improving - Hypochloremia - Leukopenia - Thrombocytopenia - Tobacco abuse Plan - Follow up on Repeat CT angiogram of the chest -Continue with Abx per ID, -LP , 09/10/18 showed negative Cryptococcal antigen. Normal protein and glucose -HIV RNA is positive with high viral load, cd4 count 169, T.Palladium Ab positive -f/p hep C viral RNA, quantitative, and genotype, LFTs improved -WBC and plt count improved -s/p isotonic IVF, sp tolvaptan on 09/08, Nephrology consult, hypona tremia/hypochloremia likely due to hypovolemia, hyposolutemia and SIADH, improved -Patient was counseled greater than 10 minutes about tobacco cessation -DVT ppx- scds-, Further hold anticoagulation b/c epistaxis. Subjective Date of service: 09/12/18 Principal diagnosis: Pneumomnia, acute HIV, Fever, Abnl LFTs Interval history: Shortness of breath improved. No more epistaxis. Afebrile today. MAXIMUM TEMPERATURE was 101 Objective - Exam Narrative Exam: Constitutional: Well-nourished well-developed. In no distress Head: Normocephalic atraumatic Eyes: Pupils are equal round and reactive to light Nose: No enlarged turbinates, no septal deviation. Mouth: Moist mucous membranes. Neck: Supple no thyromegaly. No bruit. No JVD Heart: Regular rate and rhythm, S1-S2 normal. No rubs murmurs or gallop Lungs: decreased breath sounds bilaterally. no rales or rhonchi Abdomen: Soft, nontender. Bowel sound are present. Extremities: No edema, no cyanosis, no clubbing. Neuro: Alert oriented Oriented x3. No focal sensory or motor deficit. Skin: No rashes or hyperpigmented spots Musculoskeletal system: No joint pain or swelling Hematological: No petechia or subcutanous hemorrhages. Immunological: No multiple septic spots on the skin Lymphatic: No generalized lymphadenopathy Psychiatry: Euthymic. Calm. - Constitutional Vitals: Vital Signs - 12hr 09/12/18 09/12/18 04:49 11:21 Temperature 99.0 F 98.4 F Pulse Rate 72 73 Respiratory 18 14 Rate Blood Pressure 116/69 104/65 O2 Sat by Pulse 96 97 Oximetry - Labs CBC & Chem 7: 09/12/18 05:53 09/12/18 05:53 Labs: Abnormal lab results 09/12/18 09/12/18 Range/Units 05:53 05:53 Hgb 11.7 L (11.8-15.2) gm/dl Hct 31.7 L (35.5-45.6) % Sodium 131 L (137-145) mmol/L Carbon Dioxide 20 L (22-30) mmol/L BUN 7 L (9-20) mg/dL Creatinine 0.7 L (0.8-1.5) mg/dL Calcium 8.1 L (8.4-10.2) mg/dL
--- NOTE | 2018-09-12 14:36 | Progress Note ---
Assessment and Plan Cultures: 09/03/2018 blood culture: No growth 09/04/2018 cryptococcal antigen: Negative 09/10/2018 blood culture: No growth 09/04/2018 CSF cryptococcal antigen: Negative 09/11/2018 blood culture: No growth Assessment: 32 y/o man with no medical history except for tobacco and EOTH abuse, MSM; ad mitted on 09/03/2018 due to 2-week history of cough with yellow sputum production and chest pressure upon coughing 1) SIRS v/s sepsis: Noted fever trending down. Etiology unclear. DDx: CAP, newly diagnosed HIV, +/- PJP, +/- acute mononucleosis +/- acute HCV +/- less tick borne. - Blood culture 09/03/2018 no growth today. - UA neg - HCV serology positive. - HBV serology negative. - HIV rapid negative and p24 Ag negative - Influenza PCR negative. - CXR neg. - CTA showed no evidence of PE, bibasilar subsegmental atelectasis greater on the left than the right and diffuse fatty infiltration of the liver - LDH - 515 - CRP - .30 -Urine Legionella AG - negative -DARVIN negative -C3/C4 negative 2) Recent pneumonia: seen at [facility] ED on 08/15/2018 visit showed WBC 17K, AST 213/ALT 313, bili 1.4. Blood cultures negative. CXR showed lingular and LLL pneumonia. treated with doxycycline for 10 days. 3) Elevated LFTs ? from HCV +/- cute antiretroviral syndrome +/- acute mononucleosis +/- acute ETOh hepatitis +/- doubt leptospirosis or autoimmune. 4) History of syphilis 5) Neutropenia and throbocytopenia 7) Oral candidiasis 8) Cough ? CXR neg. CT neg for consolidation, if AIDS ? PJP Recommendations: - monitor fever -f/u repeat CT chest and CT sinus for new onset epistaxis - pending -consult pulmonary for bronch/BAL. -f/u aspergillus/fungitell for invasive fungal etiology. -Continue Ceftriaxone 2gm IV q day D6 of 7 -Continue bactrim DS 2 tabs TID D4 of 21 -Continue fluconazole - f/u CMV DNA and HIV genotype to determine HAART regimine - obtain HIV-4th generation test Dr Villafana to round on Friday Jayde Lott MD Infectious Diseases [employer] [facility] M [phone] O [phone] Subjective Date of service: 09/12/18 Principal diagnosis: Pneumomnia, acute HIV, Fever, Abnl LFTs Interval history: Reports feeling better. Still dry cough. Tmax 101 but feels better. Objective - Exam Narrative Exam: General appearance: Alert in NAD, conversant Eyes: anicteric sclerae, moist conjunctivae; no lid-lag; PERRLA HENT: Atraumatic; oropharynx clear with moist mucous membranes and no oral thrush; normal hard and soft palate. Normal external ears. Neck: Trachea midline; supple, no thyromegaly or lymphadenopathy Lungs: bibasilar crackles CV: RRR, no murmurs Abdomen: Soft, non-tender; no masses or hepatosplenomegaly Extremities: No peripheral edema or extremity lymphadenopathy Skin: Normal temperature, turgor and texture; no rash, ulcers or subcutaneous nodules Psych: anxious. Neuro: alert and oriented x 3. Moving all extermities - Constitutional Vitals: Vital Signs Temp Pulse Resp BP Pulse Ox 98.4 F 73 14 104/65 97 09/12/18 11:21 09/12/18 11:21 09/12/18 11:21 09/12/18 11:21 09/12/18 11:21 Temperature -Last 24 Hours Temperature 98.4 F Temperature 99.0 F Temperature 101.0 F Temperature 100.5 F Temperature 102.2 F - Labs CBC & Chem 7: 09/12/18 05:53 09/12/18 05:53 Labs: Abnormal lab results 09/12/18 09/12/18 Range/Units 05:53 05:53 Hgb 11.7 L (11.8-15.2) gm/dl Hct 31.7 L (35.5-45.6) % Sodium 131 L (137-145) mmol/L Carbon Dioxide 20 L (22-30) mmol/L BUN 7 L (9-20) mg/dL Creatinine 0.7 L (0.8-1.5) mg/dL Calcium 8.1 L (8.4-10.2) mg/dL
--- NOTE | 2018-09-12 15:02 | Cat Scan Report ---
PROCEDURE: CT ANGIO CHEST TECHNIQUE: Axial images are performed from lung apices to the bases. Multiplanar reformats were perf ormed on the acquisition scanner. Total exam DLP 344.46 mGy-centimeter HISTORY: tachypnea, pneumonia 32-year-old male COMPARISONS: Chest x-ray 09/10/2018, CTA chest 09/04/2018 FINDINGS: Since the previous CTA chest 09/04/2018, there has been marked worsening of the bilateral interstitial and airspace infiltrates. The interstitial component is more prominent than the airspace component. This is bilateral and diffuse. There has been interval development of moderate layering bilateral pleural effusions and significant subjacent consolidation. There are patchy lower lobe infiltrates. Contrast bolus timing is suboptimal for evaluating pulmonary embolus. No central embolus is identifie d. There are multiple enlarged bilateral axillary and mediastinal lymph nodes which may be reactive, lym phoproliferative or neoplastic. Small pericardial effusion. Imaged upper abdomen demonstrates mildly enlarged and fatty infiltrated liver. Spleen upper limits no rmal size. Otherwise unremarkable. IMPRESSION: Marked worsening of the bilateral diffuse primarily interstitial infiltrates with patchy airspace dis ease in the lower lobes. Interval development of moderate layering bilateral pleural effusions and significant subjacent conso lidation. No definite pulmonary embolus. Suboptimal contrast bolus. Multiple enlarged axillary and mediastinal lymph nodes may be reactive versus lymphoproliferative or neoplastic. Recommend continued follow-up. Small pericardial effusion is present. Enlarged fatty infiltrated liver. Borderline splenomegaly.. This document is electronically signed by Emma Seymour MD., September 12 2018 01:30:38 PM ET
--- NOTE | 2018-09-12 15:02 | Cat Scan Report ---
PROCEDURE: CT SINUSES WO CON TECHNIQUE: Axial images were performed to the paranasal sinuses without IV contrast. Multiplanar ref ormats were performed on the acquisition scanner. Total exam DLP 236.48 mGy-centimeter HISTORY: epistaxis COMPARISONS: CT brain 09/09/2018 demonstrating mild ethmoid air cell disease FINDINGS: Paranasal sinuses demonstrate minimal left ethmoid air cell opacification. The remaining imaged paran baylee sinuses are well aerated. Mastoid air cells are not imaged. Bone windows are not provided. Only soft tissue windows are provided. Imaged intracranial contents are unremarkable. Limited noncontrast imaging of nasopharynx is unremar kable. IMPRESSION: Limited noncontrast exam with soft tissue windowing only provided. Minimal left mid ethmoid air cell opacification unchanged with CT 09/09/2018. No nasal vault, nasal passage, or sinus disease identified. Nasal septum is slightly deviated to the right in the midportion. If there is a concern for mass, consider MRI with gadolinium.. This document is electronically signed by Emma Seymour MD., September 12 2018 01:34:04 PM ET
[2018-09-12] MEDS: TYLENOL PO PRN (23:38)
[2018-09-13 07:09] LABS: BUN/Creatinine Ratio 10; Blood Urea Nitrogen 7 mg/dL (9-20); Calcium 8.1 mg/dL (8.4-10.2); Hemolysis Index 11
[2018-09-13] MEDS: DIFLUCAN PO SCH (09:33)
--- NOTE | 2018-09-13 10:57 | Progress Note ---
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 Based on labs tomorrow, he may likely require another dose of tolvaptan. (2) Proteinuria Current Visit: Yes Status: Acute Plan to address problem: Unclear etiology but it is in the setting of microscopic hematuria, a positive hep C antibody as well as hypoalbuminemia. UPC of 2.78 g/g creatinine.Tested positive for HIV 1 with viral load > 10^6. Cannot rule out possibility of glomerular etiology such as MPGN in the setting of Hep C or HIV. (3) Thrombocytopenia Current Visit: Yes Status: Acute Plan to address problem: Labs are stable, We will monitor closely. (4) Transaminitis Current Visit: Yes Status: Acute Plan to address problem: Abdominal ultrasound was normal. We'll also follow-up on further hep C serologies. Subjective Date of service: 09/13/18 Principal diagnosis: Pneumomnia, acute HIV, Fever, Abnl LFTs Interval history: No acute changes overnight. CT chest done yesterday which commented on progressively worsening b/l infiltrates. ID evaluation noted, with plan to consult Pulmonology for possible bronch. His serum sodium is stable but remains low normal. 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 Based on labs tomorrow may likely need to set up for another dose of tolvaptan. Objective - Vital Signs Vital signs: Vital Signs - 12hr 09/12/18 09/12/18 09/13/18 23:32 23:38 05:18 Temperature 100.7 F H 98.9 F Pulse Rate 84 82 Respiratory 36 H 17 36 H Rate Blood Pressure 107/70 Blood Pressure 112/69 [Left] O2 Sat by Pulse 90 90 Oximetry 09/13/18 10:43 Temperature Pulse Rate Respiratory Rate Blood Pressure Blood Pressure [Left] O2 Sat by Pulse 95 Oximetry - General Appearance General appearance: well-developed, well-nourished, appears stated age EENT: ATNC, PERRL Neck: no JVD, no thyromegaly Respiratory: Present: Clear to Ascultation Cardiology: regular, S1S2 Gastrointestinal: normal, normoactive bowel sounds Integumentary: no rash, warm and dry Neurologic: no focal deficit, alert and oriented x3 Psychiatric: mood/affect appropriate, cooperative - Lab 09/12/18 05:53 09/13/18 05:58 Most recent lab results Calcium 8.1 mg/dL (8.4-10.2) L 09/13/18 05:58 Urine Creatinine 154.8 mg/dL (0.1-20.0) H 09/04/18 04:00 Urine Sodium 111 mmol/L 09/05/18 04:00 Urine Total Protein 431 mg/dL (5-11.8) H 09/04/18 04:00 - Allied health notes Allied health notes reviewed: nursing Medications & Allergies - Medications Allergies/Adverse Reactions: Allergies No Known Allergies Allergy (Unverified 06/07/13 12:19) Home Medications: Home Medications Medication Instructions Recorded Confirmed Last Taken Type No Known Home Medications [No 09/03/18 09/03/18 Unknown History Reported Home Medications] Active Medications: Generic Name Dose Route Start Last Admin Trade Name Austinq PRN Reason Stop Dose Admin Acetaminophen 650 mg 09/06/18 15:27 09/12/18 23:38 Tylenol PO 650 mg Q6H PRN Administration Pain MILD(1-3)/Fever >100.5/[place] Fluconazole 100 mg 09/04/18 10:00 09/13/18 09:33 Diflucan PO 100 mg QDAY MARISABEL Administration Guaifenesin 1,200 mg 09/05/18 22:00 09/12/18 22:07 Mucinex Er PO 1,200 mg BID MARISABEL Administration Hydrophilic Ointment 1 applic 09/06/18 10:21 Vaseline Lip Therapy TP DIRECT PRN Dry Lips Ceftriaxone Sodium 2 gm in 100 mls @ 200 mls/hr 09/07/18 15:00 09/12/18 11:03 Rocephin/Ns 2 Gm/100 Ml IV 200 mls/hr Q24HR MARISABEL Administration Protocol Lorazepam 2 mg 09/06/18 13:01 Ativan PO Q1H PRN CIWA-Ar 8-15 Lorazepam 4 mg 09/06/18 13:01 09/09/18 05:03 Ativan IV 4 mg Q1H PRN Administration CIWA-Ar 16-25 Lorazepam 4 mg 09/06/18 13:01 Ativan IV Q15MIN PRN CIWA-Ar >25 Multivitamins 1 each 09/07/18 10:00 09/12/18 11:03 Theragran Tab PO 1 each QDAY MARISABEL Administration Ondansetron HCl 4 mg 09/04/18 00:10 09/11/18 09:12 Zofran IV 4 mg Q4H PRN Administration Nausea And Vomiting Oxycodone/Acetaminophen 1 tab 09/06/18 15:27 09/09/18 04:39 Percocet 5/325 PO 1 tab Q6H PRN Administration Pain, Moderate (4-6) Sodium Chloride 10 ml 09/04/18 10:00 09/12/18 22:07 Sodium Chloride Flush Syringe 10 Ml IV 10 ml BID MARISABEL Administration Sodium Chloride 10 ml 09/04/18 00:10 Sodium Chloride Flush Syringe 10 Ml IV PRN PRN LINE FLUSH Trimethoprim/Sulfamethoxazole 2 each 09/09/18 08:00 09/12/18 22:05 Bactrim Ds PO 2 each Q8HR MARISABEL Administration
[2018-09-13] MEDS: SODIUM CHLORIDE FLUSH SYRINGE 10 ML IV SCH ×2 (12:25→21:26)
[2018-09-13] MEDS: MUCINEX ER PO SCH ×2 (12:25→21:26)
[2018-09-13] MEDS: ROCEPHIN/NS 2 GM/100 ML 2 GM/100 ML BAG IV SCH (12:26)
[2018-09-13] MEDS: THERAGRAN Tab PO SCH (12:26)
--- NOTE | 2018-09-13 13:13 | Progress Note ---
Assessment and Plan 32-year-old man who presents to the hospital with fever. He was treated at [facility] 2 weeks ago for community acquired pneumonia and was treated with antibiotics, the patient reports compliance of those antibiotics Assessment - SIRS v/s sepsis: Noted high fevers continuing. Etiology unclear. DDx: CAP, newly diagnosed HIV, +/- PJP, - Acute HIV viral syndrome. CD 4 169/171, Viral load 10,000,000 - Bilateral pleural effusion - Hep C - Mild epistaxis - resolved - Fever - resolving - hx of syphillis, earlier this year, rx with PCN at [facility] - Acute metabolic encephalopathy - Transaminitis - Severe hyponatremia - improving - Hypochloremia - Leukopenia - Thrombocytopenia - Tobacco abuse - Fatty liver disease Plan -Repeat CT angiogram of the chest showed worsening interstitial infiltrates with patchy spaces. Fatty liver disease identified -Continue with Abx per ID, -LP , 09/10/18 showed negative Cryptococcal antigen. Normal protein and glucose -HIV RNA is positive with high viral load, cd4 count 169, T.Palladium Ab positive -f/p hep C viral RNA, quantitative, and genotype, LFTs improved -WBC and plt count improved -s/p isotonic IVF, sp tolvaptan on 09/08, Nephrology consult, hyponatremia/hypochloremia likely due to hypovolemia, hyposolutemia and SIADH, improved -Patient was counseled greater than 10 minutes about tobacco cessation -DVT ppx- scds-, Further hold anticoagulation b/c epistaxis. Subjective Date of service: 09/13/18 Principal diagnosis: Pneumomnia, acute HIV, Fever, Abnl LFTs Interval history: Shortness of breath improved. No more epistaxis. Afebrile today. MAXIMUM TEMPERATURE was 101 Objective - Exam Narrative Exam: Constitutional:Well-nourished well-developed. In no distress Head: Normocephalic atraumatic Eyes: Pupils are equal round and reactive to light Nose: No enlarged turbinates, no septal deviation. Mouth: Moist mucous membranes. Neck: Supple no thyromegaly. No bruit. No JVD Heart: Regular rate and rhythm, S1-S2 normal. No rubs murmurs or gallop Lungs: CTA bilaterally. no rales or rhonchi Abdomen: Soft, nontender. Bowel sound are present. Extremities: No edema, no cyanosis, no clubbing. Neuro: Alert oriented Oriented x3. No focal sensory or motor deficit. Skin: No rashes or hyperpigmented spots Musculoskeletal system: No joint pain or swelling Hematological: No petechia or subcutanous hemorrhages. Immunological: No multiple septic spots on the skin Lymphatic: No generalized lymphadenopathy Psychiatry: Euthymic. Calm. - Constitutional Vitals: Vital Signs - 12hr 09/13/18 09/13/18 09/13/18 05:18 10:43 11:18 Temperature 98.9 F 97.7 F Pulse Rate 82 89 Respiratory 36 H 16 Rate Blood Pressure 107/70 113/66 O2 Sat by Pulse 90 95 88 Oximetry - Labs CBC & Chem 7: 09/12/18 05:53 09/13/18 05:58 Labs: Abnormal lab results 09/13/18 Range/Units 05:58 Sodium 130 L (137-145) mmol/L Chloride 95.4 L (98-107) mmol/L Carbon Dioxide 21 L (22-30) mmol/L BUN 7 L (9-20) mg/dL Creatinine 0.7 L (0.8-1.5) mg/dL Calcium 8.1 L (8.4-10.2) mg/dL
[2018-09-13] MEDS: BACTRIM DS PO SCH ×2 (14:13→21:26)
[2018-09-13] MEDS: TYLENOL PO PRN (17:26)
[2018-09-14] MEDS: BACTRIM DS PO SCH ×4 (06:04→21:54)
[2018-09-14 07:46] LABS: Hematocrit 33.4 % (35.5-45.6)
--- NOTE | 2018-09-14 08:54 | Progress Note ---
Assessment and Plan Cultures: 09/03/2018 blood culture: No growth 09/04/2018 cryptococcal antigen: Negative 09/10/2018 blood culture: No growth 09/04/2018 CSF cryptococcal antigen: Negative 09/11/2018 blood culture: No growth Assessment: 32 y/o man with no medical history except for tobacco and EOTH abuse, MSM; admitted on 09/03/2018 due to 2-week history of cough with yellow sputum production and chest pressure upon coughing 1) SIRS v/s sepsis: On and off fevers continuing. Etiology unclear. DDx: CAP, newly diagnosed HIV, +/- PJP, +/- acute mononucleosis +/- acute HCV +/- less tick borne. - Blood culture 09/03/2018 no growth today. - UA neg - HCV serology positive. - HBV serology negative. - HIV rapid negative and p24 Ag negative - Influenza PCR negative. - CXR neg. - CTA showed no evidence of PE, bibasilar subsegmental atelectasis greater on the left than the right and diffuse fatty infiltration of the liver - LDH - 515 - CRP - .30 -Urine Legionella AG - negative -DARVIN negative -C3/C4 negative - CSF VDRL - nonreactive -CMV DNA PCR - <200 2) Recent pneumonia: seen at [facility] ED on 08/15/2018 visit showed WBC 17K, AST 213/ALT 313, bili 1.4. Blood cultures negative. CXR showed lingular and LLL pneumonia. treated with doxycycline for 10 days. 3) Elevated LFTs ? from HCV +/- cute antiretroviral syndrome +/- acute mononucleosis +/- acute ETOh hepatitis +/- doubt leptospirosis or autoimmune. 4) History of syphilis 5) Neutropenia and throbocytopenia 7) Oral candidiasis 8) Cough ? CXR neg. CT neg for consolidation, if AIDS ? PJP. -Repeat CT - Marked worsening of the bilateral diffuse primarily interstitial infiltrates with p atchy airspace disease in the lower lobes. Interval development of moderate layering bilateral pleural effusions and significant subjacent consolidation. 9) New onset Epistaxis: Sinus CT showed no nasal vault, nasal passage, or sinus disease identified. Recommendations: - continue monitor fever -consult pulmonary for bronch/BAL placed -f/u aspergillus/fungitell for invasive fungal etiology. -Continue Ceftriaxone 2gm IV q day D7 of 7- last dose today -Continue bactrim DS 2 tabs TID D5 of 21 -Continue fluconazole - HIV genotype to determine HAART regimine - obtain HIV-4th generation test [facility] M: [phone] O:[phone] Subjective Date of service: 09/14/18 Principal diagnosis: Pneumomnia, acute HIV, Fever, Abnl LFTs Interval history: Patient seen and examined. Denied generalized pain, weakness or SOB. +fevers continuing. No family at bedside. Objective - Exam Narrative Exam: Constitutional: Awake. Alert. No acute distress Head, Ears, Nose: Normocephalic, atraumatic. External ears, nose normal Eyes: Conjunctivae/corneas clear. No icterus. No ptosis. Neck: Supple, no meningeal signs Oral: dentition fair, no thrush Cardiovascular: S1, S2 normal. Respiratory: Good air entry, GI: Soft, non-tender; bowel sounds normal. No peritoneal signs Musculoskeletal: No pedal edema, no cyanosis. Skin: No rash or abscess Hem/Lymphatic: No palpable cervical or supraclavicular nodes. No lymphangitis Psych: affect : good Neurological: Alert, awake, oriented. - Constitutional Vitals: Vital Signs Temp Pulse Resp BP Pulse Ox 99.7 F H 89 18 114/60 90 09/14/18 04:53 09/14/18 04:53 09/14/18 04:53 09/14/18 04:53 09/14/18 04:53 Temperature -Last 24 Hours Temperature 99.7 F Temperature 98.1 F Temperature 101.2 F Temperature 97.7 F - Labs CBC & Chem 7: 09/14/18 06:32 09/14/18 13:30 Labs: Abnormal lab results 09/14/18 Range/Units 06:32 Hct 33.4 L (35.5-45.6) %
[2018-09-14] MEDS: SODIUM CHLORIDE FLUSH SYRINGE 10 ML IV SCH ×2 (10:11→21:54)
[2018-09-14] MEDS: ROCEPHIN/NS 2 GM/100 ML 2 GM/100 ML BAG IV SCH (10:11)
[2018-09-14] MEDS: THERAGRAN Tab PO SCH (10:11)
[2018-09-14] MEDS: MUCINEX ER PO SCH ×2 (10:11→21:54)
[2018-09-14] MEDS: DIFLUCAN PO SCH (10:11)
--- NOTE | 2018-09-14 13:01 | Progress Note ---
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 He has no new labs today so we will order a BMP, and he may likely require another dose of tolvaptan if worsening hyponatremia noted. (2) Proteinuria Current Visit: Yes Status: Acute Plan to address problem: Unclear etiology but it is in the setting of microscopic hematuria, a positive h ep C antibody as well as hypoalbuminemia. UPC of 2.78 g/g creatinine.Tested positive for HIV 1 with viral load > 10^6. Cannot rule out possibility of glomerular etiology such as MPGN in the setting of Hep C or HIV. (3) Thrombocytopenia Current Visit: Yes Status: Acute Plan to address problem: Labs are stable, We will monitor closely. (4) Transaminitis Current Visit: Yes Status: Acute Plan to address problem: Abdominal ultrasound was normal. We'll also follow-up on further hep C serologies. Subjective Date of service: 09/14/18 Principal diagnosis: Pneumomnia, acute HIV, Fever, Abnl LFTs Interval history: No acute issues overnight. No new labs this am. Objective - Vital Signs Vital signs: Vital Signs - 12hr 09/14/18 04:53 Temperature 99.7 F H Pulse Rate 89 Respiratory 18 Rate Blood Pressure 114/60 O2 Sat by Pulse 90 Oximetry - General Appearance General appearance: well-nourished, appears stated age EENT: ATNC, PERRL Neck: no JVD, no thyromegaly Respiratory: Present: Clear to Ascultation Cardiology: regular, S1S2 Gastrointestinal: normal, normoactive bowel sounds Integumentary: no rash, warm and dry Neurologic: no focal deficit, alert and oriented x3 Psychiatric: mood/affect appropriate, cooperative - Lab 09/14/18 06:32 09/13/18 05:58 Most recent lab results Calcium 8.1 mg/dL (8.4-10.2) L 09/13/18 05:58 Urine Creatinine 154.8 mg/dL (0.1-20.0) H 09/04/18 04:00 Urine Sodium 111 mmol/L 09/05/18 04:00 Urine Total Protein 431 mg/dL (5-11.8) H 09/04/18 04:00 - Allied health notes Allied health notes reviewed: nursing Medications & Allergies - Medications Allergies/Adverse Reactions: Allergies No Known Allergies Allergy (Unverified 06/07/13 12:19) Home Medications: Home Medications Medication Instructions Recorded Confirmed Last Taken Type No Known Home Medications [No 09/03/18 09/03/18 Unknown History Reported Home Medications] Active Medications: Generic Name Dose Route Start Last Admin Trade Name Freq PRN Reason Stop Dose Admin Acetaminophen 650 mg 09/06/18 15:27 09/13/18 17:26 Tylenol PO 650 mg Q6H PRN Administration Pain MILD(1-3)/Fever >100.5/[place] Fluconazole 100 mg 09/04/18 10:00 09/14/18 10:11 Diflucan PO 100 mg QDAY MARISABEL Administration Guaifenesin 1,200 mg 09/05/18 22:00 09/14/18 10:11 Mucinex Er PO 1,200 mg BID MARISABEL Administration Hydrophilic Ointment 1 applic 09/06/18 10:21 Vaseline Lip Therapy TP DIRECT PRN Dry Lips Ceftriaxone Sodium 2 gm in 100 mls @ 200 mls/hr 09/07/18 15:00 09/14/18 10:11 Rocephin/Ns 2 Gm/100 Ml IV 200 mls/hr Q24HR MARISABEL Administration Protocol Lorazepam 2 mg 09/06/18 13:01 Ativan PO Q1H PRN CIWA-Ar 8-15 Lorazepam 4 mg 09/06/18 13:01 09/09/18 05:03 Ativan IV 4 mg Q1H PRN Administration CIWA-Ar 16-25 Lorazepam 4 mg 09/06/18 13:01 Ativan IV Q15MIN PRN CIWA-Ar >25 Multivitamins 1 each 09/07/18 10:00 09/14/18 10:11 Theragran Tab PO 1 each QDAY MARISABEL Administration Ondansetron HCl 4 mg 09/04/18 00:10 09/11/18 09:12 Zofran IV 4 mg Q4H PRN Administration Nausea And Vomiting Oxycodone/Acetaminophen 1 tab 09/06/18 15:27 09/09/18 04:39 Percocet 5/325 PO 1 tab Q6H PRN Administration Pain, Moderate (4-6) Sodium Chloride 10 ml 09/04/18 10:00 09/14/18 10:11 Sodium Chloride Flush Syringe 10 Ml IV 10 ml BID MARISABEL Administration Sodium Chloride 10 ml 09/04/18 00:10 Sodium Chloride Flush Syringe 10 Ml IV PRN PRN LINE FLUSH Trimethoprim/Sulfamethoxazole 2 each 09/09/18 08:00 09/14/18 06:04 Bactrim Ds PO 2 each Q8HR MARISABEL Administration
[2018-09-14 14:06] LABS: BUN/Creatinine Ratio 9; Blood Urea Nitrogen 8 mg/dL (9-20); Calcium 8.3 mg/dL (8.4-10.2); Hemolysis Index 4
--- NOTE | 2018-09-14 17:42 | Progress Note ---
Assessment and Plan 32-year-old man who presents to the hospital with fever. He was treated at [facility] 2 weeks ago for community acquired pneumonia and was treated with antibiotics, the patient reports compliance of those antibiotics Assessment - SIRS v/s sepsis: Noted high fevers continuing improving. Etiology unclear. DDx: CAP, newly diagnosed HIV, +/- PJP, - Acute HIV viral syndrome. CD 4 169/171, Viral load 10,000,000 - Bilateral pleural effusion imnproving - Hep C - Mild epistaxis - resolved - Fever - resolving Tmax 101.2 - hx of syphillis, earlier this year, rx with PCN at [place] - Acute metabolic encephalopathy - resolved - Transaminitis - Severe hyponatremia - Likley SIADH - Hypochloremia - Leukopenia - Thrombocytopenia - Tobacco abuse - Fatty liver disease Plan -Repeat CT angiogram of the chest showed worsening interstitial infiltrates with patchy spaces. Fatty liver disease identified -Continue with Abx per ID and antifungal per ID, -LP , 09/10/18 showed negative Cryptococcal antigen. Normal protein and glucose -HIV RNA is positive with high viral load, cd4 count 169, T.Palladium Ab positive -f/p hep C viral RNA, quantitative, and genotype, LFTs improved -WBC and plt count improved -s/p isotonic IVF, sp tolvaptan on 09/08, Nephrology consult, hyponatremia/hypochloremia likely due to hypovolemia, hypoosmolar and SIADH, improved -Patient was counseled greater than 10 minutes about tobacco cessation -DVT ppx- scds-, Further hold anticoagulation b/c epistaxis. Disposition: Possible Bronchoscopy and bx by Pulm for definitive dx. D/c home when pt is afebrile for > 48 hrs Subjective Date of service: 09/14/18 Principal diagnosis: Pneumomnia, acute HIV, Fever, Abnl LFTs Interval history: Shortness of breath improved. No more epistaxis. MAXIMUM TEMPERATURE was 101 Objective - Exam Narrative Exam: Constitutional:Well-nourished well-developed. In no distress Head: Normocephalic atraumatic Eyes: Pupils are equal round and reactive to light Nose: No enlarged turbinates, no septal deviation. Mouth: Moist mucous membranes. Neck: Supple no thyromegaly. No bruit. No JVD Heart: Regular rate and rhythm, S1-S2 normal. No rubs murmurs or gallop Lungs: CTA bilaterally. no rales or rhonchi Abdomen: Soft, nontender. Bowel sound are present. Extremities: No edema, no cyanosis, no clubbing. Neuro: Alert oriented Oriented x3. No focal sensory or motor deficit. Skin: No rashes or hyperpigmented spots Musculoskeletal system: No joint pain or swelling Hematological: No petechia or subcutanous hemorrhages. Immunological: No multiple septic spots on the skin Lymphatic: No generalized lymphadenopathy Psychiatry: Euthymic. Calm. - Constitutional Vitals: Vital Signs - 12hr 09/14/18 09/14/18 10:00 13:21 Temperature 98.7 F Pulse Rate 85 Respiratory 20 Rate Blood Pressure 98/68 O2 Sat by Pulse 93 96 Oximetry - Labs CBC & Chem 7: 09/14/18 06:32 09/14/18 13:30 Labs: Abnormal lab results 09/14/18 09/14/18 Range/Units 06:32 13:30 Hct 33.4 L (35.5-45.6) % Sodium 129 L (137-145) mmol/L Chloride 93.3 L (98-107) mmol/L BUN 8 L (9-20) mg/dL Glucose 107 H (75-100) mg/dL Calcium 8.3 L (8.4-10.2) mg/dL
[2018-09-15] MEDS: BACTRIM DS PO SCH ×3 (06:38→22:10)
--- NOTE | 2018-09-15 08:32 | Progress Note ---
Assessment and Plan Cultures: 09/03/2018 blood culture: No growth 09/04/2018 cryptococcal antigen: Negative 09/10/2018 blood culture: No growth 09/04/2018 CSF cryptococcal antigen: Negative 09/11/2018 blood culture: No growth 09/14/2018 Urine culture: No growth Assessment: 32 y/o man with no medical history except for tobacco and EOTH abuse, MSM; admitted on 09/03/2018 due to 2-week history of cough with yellow sputum production and chest pressure upon coughing 1) SIRS v/s sepsis: Improved, no fevers in >24 hours.. Etiology unclear. DDx: CAP, HIV with acute retroviral syndrome, less llkely , PJP, tick borne. - Blood culture 09/03/2018 no growth today. - UA neg - HCV serology positive. - HBV serology negative. - HIV rapid negative and p24 Ag negative - Influenza PCR negative. - CXR neg. - CTA showed no evidence of PE, bibasilar subsegmental atelectasis greater on the left than the right and diffuse fatty infiltration of the liver - LDH - 515 - CRP - .30 -Urine Legionella AG - negative -DARVIN negative -C3/C4 negative - CSF VDRL - nonreactive -CMV DNA PCR - <200 2) HIV with acute retroviral syndrome: VL >10 million and CD4 177. Explains the high viral load and negative HIV rapid test but positive HIV RNA PCR. Pneumonia appears to be worsening on follow up CT. Hence consult pulmonary to eval for bronchoscopy. PCP pneumonia is generally not associated with acute retroviral syndrome and more seen with AIDS. 3) Recent pneumonia: seen at [facility] ED on 08/15/2018 visit showed WBC 17K, AST 213/ALT 313, bili 1.4. Blood cultures negative. CXR showed lingular and LLL pneumonia. treated with doxycycline for 10 days. 4) Elevated LFTs ? from HCV +/- cute antiretroviral syndrome +/- acute mononucleosis +/- acute ETOh hepatitis +/- doubt leptospirosis or autoimmune. 5) History of syphilis 6) Neutropenia and throbocytopenia: improved 7) Oral candidiasis; Resolved 8) Cough ? CXR neg. CT neg for consolidation, if AIDS ? PJP. -Repeat CT - Marked worsening of the bilateral diffuse primarily interstitial infiltrates with patchy airspace disease in the lower lobes. Interval development of moderate layering bilateral pleural effusions and significant subjacent consolidation. Pulmonary finds no clear advantage for bronchoscopy at this point, clinically improving. 9) New onset Epistaxis: Resolved. Sinus CT showed no nasal vault, nasal passage, or sinus disease identified. Recommendations: -f/u aspergillus/fungitell for invasive fungal etiology. -Continue bactrim DS 2 tabs TID D5 of 21 -Discontinue fluconazole, Anticipate discharge on bactrim DS 2 tabs TID for total 21 days, then prophylaxis Bactrim 1 DS PO once daily for 30 days - f/u HIV genotype to determine HAART regimine - f/u HIV-4th generation test Eileen Peña NP [facility] M: [phone] O:[phone] Subjective Date of service: 09/15/18 Principal diagnosis: Pneumomnia, acute HIV, Fever, Abnl LFTs Interval history: Patient seen and examined. Denied generalized pain, weakness or SOB. No fevers in greater than 24 hours. Mother at bedside. Nurses notes, lab and reports reviewed, discussed with patient. Objective - Exam Narrative Exam: Constitutional: Awake. Alert. No acute distress Head, Ears, Nose: Normocephalic, atraumatic. External ears, nose normal Eyes: Conjunctivae/corneas clear. No icterus. No ptosis. Neck: Supple, no meningeal signs Oral: dentition fair, no thrush Cardiovascular: S1, S2 normal. Respiratory: Good air entry, GI: Soft, non-tender; bowel sounds normal. No peritoneal signs Musculoskeletal: No pedal edema, no cyanosis. Skin: No rash or abscess Hem/Lymphatic: No palpable cervical or supraclavicular nodes. No lymphangitis Psych: affect : good Neurological: Alert, awake, oriented. - Constitutional Vitals: Vital Signs Temp Pulse Resp BP Pulse Ox 98.4 F 89 28 H 114/59 94 09/15/18 05:26 09/15/18 05:26 09/15/18 05:26 09/15/18 05:26 09/15/18 05:26 Temperature -Last 24 Hours Temperature 98.4 F Temperature 98.3 F Temperature 98.2 F Temperature 98.7 F - Labs CBC & Chem 7: 09/14/18 06:32 09/14/18 13:30 Labs: Abnormal lab results 09/14/18 Range/Units 13:30 Sodium 129 L (137-145) mmol/L Chloride 93.3 L (98-107) mmol/L BUN 8 L (9-20) mg/dL Glucose 107 H (75-100) mg/dL Calcium 8.3 L (8.4-10.2) mg/dL
--- NOTE | 2018-09-15 08:55 | Progress Note ---
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 Plan for dose of tolvaptan today. (2) Proteinuria Current Visit: Yes Status: Acute Plan to address problem: Unclear etiology but it is in the setting of microscopic hematuria, a positive hep C antibody as well as hypoalbuminemia. UPC of 2.78 g/g creatinine.Tested positive for HIV 1 with viral load > 10^6. Cannot rule out possibility of glomerular etiology such as MPGN in the setting of Hep C or HIV. (3) Thrombocytopenia Current Visit: Yes Status: Acute Plan to address problem: Labs are stable, We will monitor closely. (4) Transaminitis Current Visit: Yes Status: Acute Plan to address problem: Abdominal ultrasound was normal. We'll also follow-up on further hep C serologies. Subjective Date of service: 09/15/18 Principal diagnosis: Pneumomnia, acute HIV, Fever, Abnl LFTs Interval history: No acute changes/issues overnight. Labs noted and serum sodium has continued to trend downward. Will give another dose of tolvaptan today. Objective - Vital Signs Vital signs: Vital Signs - 12hr 09/14/18 09/14/18 09/15/18 21:16 22:28 05:26 Temperature 98.3 F 98.4 F Pulse Rate 86 89 Respiratory 28 H 28 H Rate Blood Pressure 104/61 114/59 O2 Sat by Pulse 95 94 94 Oximetry - General Appearance General appearance: well-developed, well-nourished, appears stated age EENT: ATNC, PERRL Neck: no JVD, no thyromegaly, no carotid bruit Respiratory: Present: Clear to Ascultation, Normal Exam Cardiology: regular, S1S2 Gastrointestinal: normal, normoactive bowel sounds Integumentary: no rash, warm and dry Neurologic: no focal deficit, no asterixis, alert and oriented x3 Musculoskeletal: other (-edema) Psychiatric: mood/affect appropriate, cooperative - Lab 09/14/18 06:32 09/14/18 13:30 Most recent lab results Calcium 8.3 mg/dL (8.4-10.2) L 09/14/18 13:30 Urine Creatinine 154.8 mg/dL (0.1-20.0) H 09/04/18 04:00 Urine Sodium 111 mmol/L 09/05/18 04:00 Urine Total Protein 431 mg/dL (5-11.8) H 09/04/18 04:00 - Allied health notes Allied health notes reviewed: nursing Medications & Allergies - Medications Allergies/Adverse Reactions: Allergies No Known Allergies Allergy (Unverified 06/07/13 12:19) Home Medications: Home Medications Medication Instructions Recorded Confirmed Last Taken Type No Known Home Medications [No 09/03/18 09/03/18 Unknown History Reported Home Medications] Active Medications: Generic Name Dose Route Start Last Admin Trade Name Freq PRN Reason Stop Dose Admin Acetaminophen 650 mg 09/06/18 15:27 09/13/18 17:26 Tylenol PO 650 mg Q6H PRN Administration Pain MILD(1-3)/Fever >100.5/[place] Fluconazole 100 mg 09/04/18 10:00 09/14/18 10:11 Diflucan PO 100 mg QDAY MARISABEL Administration Guaifenesin 1,200 mg 09/05/18 22:00 09/14/18 21:54 Mucinex Er PO 1,200 mg BID MARISABEL Administration Hydrophilic Ointment 1 applic 09/06/18 10:21 Vaseline Lip Therapy TP DIRECT PRN Dry Lips Lorazepam 2 mg 09/06/18 13:01 Ativan PO Q1H PRN CIWA-Ar 8-15 Lorazepam 4 mg 09/06/18 13:01 09/09/18 05:03 Ativan IV 4 mg Q1H PRN Administration CIWA-Ar 16-25 Lorazepam 4 mg 09/06/18 13:01 Ativan IV Q15MIN PRN CIWA-Ar >25 Multivitamins 1 each 09/07/18 10:00 09/14/18 10:11 Theragran Tab PO 1 each QDAY MARISABEL Administration Ondansetron HCl 4 mg 09/04/18 00:10 09/11/18 09:12 Zofran IV 4 mg Q4H PRN Administration Nausea And Vomiting Oxycodone/Acetaminophen 1 tab 09/06/18 15:27 09/09/18 04:39 Percocet 5/325 PO 1 tab Q6H PRN Administration Pain, Moderate (4-6) Sodium Chloride 10 ml 09/04/18 10:00 09/14/18 21:54 Sodium Chloride Flush Syringe 10 Ml IV 10 ml BID MARISABEL Administration Sodium Chloride 10 ml 09/04/18 00:10 Sodium Chloride Flush Syringe 10 Ml IV PRN PRN LINE FLUSH Tolvaptan 15 mg 09/15/18 08:39 Samsca PO 09/15/18 08:40 ONCE ONE Trimethoprim/Sulfamethoxazole 2 each 09/09/18 08:00 09/15/18 06:38 Bactrim Ds PO 2 each Q8HR MARISABEL Administration
[2018-09-15] MEDS ORDERED: SAMSCA PO ONE (10:30)
[2018-09-15] MEDS: DIFLUCAN PO SCH (10:52)
[2018-09-15] MEDS: MUCINEX ER PO SCH ×2 (10:52→22:10)
[2018-09-15] MEDS: THERAGRAN Tab PO SCH (10:52)
[2018-09-15] MEDS: SODIUM CHLORIDE FLUSH SYRINGE 10 ML IV SCH ×2 (10:53→22:11)
--- NOTE | 2018-09-15 11:29 | Progress Note ---
Assessment and Plan Assessment and plan: 32-year-old man who presents to the hospital with fever. He was treated at [facility] 2 weeks ago for community acquired pneumonia and was treated with antibiotics, the patient reports compliance of those antibiotics CT amgio chest; no evidence of PE diffuse fatty infiltration of the liver Labs, UA is negative for UTI, hepatitis serology is only positive for positive hep C antibody, rapid HIV is negative, rapid influenza is negative Diagnoses ID acute HIV viral syndrome Hep C Sepsis Fever hx of syphillis, earlier this year, rx with PCN at [place] possible pjp pna neuro Acute metabolic encephalopathy GI Transaminitis Severe hyponatremia FEN-renal Hypochloremia Hematology Leukopenia thrombocytopenia Tobacco abuse Plan - abx per ID, sp LP which was crypt neg -pna improving, pulmonology note appreciated, no obvious benefit for bronch at this time, he is improving, cont bactrim for pjp pna -HIV RNA is positive with high viral load of 10^6, cd4 count 169, T.Palladium Ab positive but has been treated -fup hep C viral RNA, quantitative, genotype is 1a, LFTs improved -WBC and plt count improved -s/p isotonic IVF, sp tolvaptan on 09/08, Nephrology consult, hyponatre alida/hypochloremia likely due to hypovolemia, hyposolutemia and SIADH, improved -Patient was counseled greater than 10 minutes about tobacco cessation -DVT ppx- early ambulation tentative dc tomorrow, if continues to improve, will be dc on PO abx with outpatient fup History Interval history: Review of systems Constitutional: No fevers, no malaise, no joint pains CVS: No chest pain, no orthopnea, no dyspnea on exertion, no pedal edema GI: No abdominal pain, no diarrhea, no vomiting, no constipation Respiratory: No shortness of breath, no wheezing, no coughing Hospitalist Physical - Physical exam Narrative exam: General.: Appears well, no distress, nontoxic HEENT: Moist mucous membranes, extraocular muscles intact, no lymphadenopathy Neck: supple Cardiac: S1-S2 heard Lungs: clear to auscultation bilaterally Abdomen: soft , nontender, nondistended, bowel sounds positive Extremities: no edema clubbing or cyanosis Skin: no rash or lesions Neurologic: no gross focal deficits Psych: calm, and cooperative - Constitutional Vitals: Temp Pulse Resp BP Pulse Ox 98.4 F 89 28 H 114/59 94 09/15/18 05:26 09/15/18 05:26 09/15/18 05:26 09/15/18 05:26 09/15/18 05:26 Results - Labs CBC & Chem 7: 09/16/18 00:29 09/16/18 10:01 Labs: Laboratory Last Values WBC 4.7 K/mm3 (4.5-11.0) 09/11/18 09:29 RBC 4.06 M/mm3 (3.65-5.03) 09/11/18 09:29 Hgb 12.0 gm/dl (11.8-15.2) 09/14/18 06:32 Hct 33.4 % (35.5-45.6) L 09/14/18 06:32 MCV 83 fl (84-94) L 09/11/18 09:29 MCH 30 pg (28-32) 09/11/18 09:29 MCHC 36 % (32-34) H 09/11/18 09:29 RDW 12.4 % (13.2-15.2) L 09/11/18 09:29 Plt Count 213 K/mm3 (140-440) 09/14/18 06:32 Lymph % (Auto) 18.6 % (13.4-35.0) 09/11/18 09:29 Wise % (Auto) 12.3 % (0.0-7.3) H 09/11/18 09:29 Eos % (Auto) 0.8 % (0.0-4.3) 09/11/18 09:29 Baso % (Auto) 1.3 % (0.0-1.8) 09/11/18 09:29 Lymph # 0.9 K/mm3 (1.2-5.4) L 09/11/18 09:29 Wise # 0.6 K/mm3 (0.0-0.8) 09/11/18 09:29 Eos # 0.0 K/mm3 (0.0-0.4) 09/11/18 09:29 Baso # 0.1 K/mm3 (0.0-0.1) 09/11/18 09:29 Add Manual Diff Complete 09/04/18 09:56 Total Counted 100 09/04/18 09:56 Seg Neutrophils % 67.0 % (40.0-70.0) 09/11/18 09:29 Seg Neuts % (Manual) 90.0 % (40.0-70.0) H 09/04/18 09:56 Band Neutrophils % 3.0 % 09/04/18 09:56 Lymphocytes % (Manual) 7.0 % (13.4-35.0) L 09/04/18 09:56 Reactive Lymphs % (Man) 0 % 09/04/18 09:56 Monocytes % (Manual) 0 % (0.0-7.3) 09/04/18 09:56 Eosinophils % (Manual) 0 % (0.0-4.3) 09/04/18 09:56 Basophils % (Manual) 0 % (0.0-1.8) 09/04/18 09:56 Metamyelocytes % 0 % 09/04/18 09:56 Myelocytes % 0 % 09/04/18 09:56 Promyelocytes % 0 % 09/04/18 09:56 Blast Cells % 0 % 09/04/18 09:56 Nucleated RBC % Not Reportable 09/04/18 09:56 Seg Neutrophils # 3.1 K/mm3 (1.8-7.7) 09/11/18 09:29 Seg Neutrophils # Man 1.7 K/mm3 (1.8-7.7) L 09/04/18 09:56 Band Neutrophils # 0.1 K/mm3 09/04/18 09:56 Abs Lymphs (Manual) 405 cells/uL (850-3900) L 09/04/18 16:06 Lymphocytes # (Manual) 0.1 K/mm3 (1.2-5.4) L 09/04/18 09:56 Abs React Lymphs (Man) 0.0 K/mm3 09/04/18 09:56 Monocytes # (Manual) 0.0 K/mm3 (0.0-0.8) 09/04/18 09:56 Eosinophils # (Manual) 0.0 K/mm3 (0.0-0.4) 09/04/18 09:56 Basophils # (Manual) 0.0 K/mm3 (0.0-0.1) 09/04/18 09:56 Metamyelocytes # 0.0 K/mm3 09/04/18 09:56 Myelocytes # 0.0 K/mm3 09/04/18 09:56 Promyelocytes # 0.0 K/mm3 09/04/18 09:56 Blast Cells # 0.0 K/mm3 09/04/18 09:56 WBC Morphology Not Reportable 09/04/18 09:56 Hypersegmented Neuts Not Reportable 09/04/18 09:56 Hyposegmented Neuts Not Reportable 09/04/18 09:56 Hypogranular Neuts Not Reportable 09/04/18 09:56 Smudge Cells Not Reportable 09/04/18 09:56 Toxic Granulation Not Reportable 09/04/18 09:56 Toxic Vacuolation Not Reportable 09/04/18 09:56 Dohle Bodies Not Reportable 09/04/18 09:56 Pelger-Huet Anomaly Not Reportable 09/04/18 09:56 Rain Rods Not Reportable 09/04/18 09:56 Platelet Estimate Consistent w auto 09/04/18 09:56 Clumped Platelets Not Reportable 09/04/18 09:56 Plt Clumps, EDTA Not Reportable 09/04/18 09:56 Large Platelets Not Reportable 09/04/18 09:56 Giant Platelets Not Reportable 09/04/18 09:56 Platelet Satelliting Not Reportable 09/04/18 09:56 Plt Morphology Comment Not Reportable 09/04/18 09:56 RBC Morphology Normal 09/04/18 09:56 Dimorphic RBCs Not Reportable 09/04/18 09:56 Polychromasia Not Reportable 09/04/18 09:56 Hypochromasia Not Reportable 09/04/18 09:56 Poikilocytosis Not Reportable 09/04/18 09:56 Anisocytosis Not Reportable 09/04/18 09:56 Microcytosis Not Reportable 09/04/18 09:56 Macrocytosis Not Reportable 09/04/18 09:56 Spherocytes Not Reportable 09/04/18 09:56 Pappenheimer Bodies Not Reportable 09/04/18 09:56 Sickle Cells Not Reportable 09/04/18 09:56 Target Cells Not Reportable 09/04/18 09:56 Tear Drop Cells Not Reportable 09/04/18 09:56 Ovalocytes Not Reportable 09/04/18 09:56 Helmet Cells Not Reportable 09/04/18 09:56 [place] Bodies Not Reportable 09/04/18 09:56 [place] Rings Not Reportable 09/04/18 09:56 Corona Cells Not Reportable 09/04/18 09:56 Bite Cells Not Reportable 09/04/18 09:56 Crenated Cell Not Reportable 09/04/18 09:56 Elliptocytes Not Reportable 09/04/18 09:56 Acanthocytes (Spur) Not Reportable 09/04/18 09:56 Rouleaux Not Reportable 09/04/18 09:56 Hemoglobin C Crystals Not Reportable 09/04/18 09:56 Schistocytes Not Reportable 09/04/18 09:56 Malaria parasites Not Reportable 09/04/18 09:56 Cain Bodies Not Reportable 09/04/18 09:56 Hem Pathologist Commnt No 09/04/18 09:56 PT 12.4 Sec. (12.2-14.9) 09/06/18 16:49 INR 0.87 (0.87-1.13) 09/06/18 16:49 APTT 35.6 Sec. (24.2-36.6) 09/06/18 16:49 Sodium 129 mmol/L (137-145) L 09/14/18 13:30 Potassium 4.9 mmol/L (3.6-5.0) 09/14/18 13:30 Chloride 93.3 mmol/L (98-107) L 09/14/18 13:30 Carbon Dioxide 24 mmol/L (22-30) 09/14/18 13:30 Anion Gap 17 mmol/L 09/14/18 13:30 BUN 8 mg/dL (9-20) L 09/14/18 13:30 Creatinine 0.9 mg/dL (0.8-1.5) 09/14/18 13:30 Estimated GFR > 60 ml/min 09/14/18 13:30 BUN/Creatinine Ratio 9 % 09/14/18 13:30 Glucose 107 mg/dL (75-100) H 09/14/18 13:30 Osmolality 260 Mosm/kg 09/04/18 16:06 Lactic Acid 1.10 mmol/L (0.7-2.0) 09/03/18 22:51 Calcium 8.3 mg/dL (8.4-10.2) L 09/14/18 13:30 Total Bilirubin 0.70 mg/dL (0.1-1.2) 09/07/18 04:32 Direct Bilirubin 0.2 mg/dL (0-0.2) 09/05/18 05:27 Indirect Bilirubin 0.2 mg/dL 09/05/18 05:27 AST 131 units/L (5-40) H 09/07/18 04:32 ALT 40 units/L (7-56) 09/07/18 04:32 Alkaline Phosphatase 55 units/L (35-129) 09/07/18 04:32 Ammonia 42.0 umol/L (25-60) 09/07/18 04:32 Lactate Dehydrogenase 515 units/L (91-180) H 09/06/18 07:11 Total Creatine Kinase 901 units/L (55-170) H 09/09/18 04:54 C-Reactive Protein 0.30 mg/dL (0.00-1.30) 09/04/18 16:06 Total Protein 5.3 g/dL (6.3-8.2) L 09/07/18 04:32 Albumin 2.4 g/dL (3.9-5) L 09/07/18 04:32 Albumin/Globulin Ratio 0.8 % 09/07/18 04:32 Ceruloplasmin 32 mg/dL (18-36) 09/07/18 04:32 TSH 0.872 mlU/mL (0.270-4.200) 09/05/18 05:27 Free T4 0.66 ng/dL (0.76-1.46) L 09/05/18 05:27 Thyroxine (T4) 4.4 ug/dL (4.0-12.0) 09/05/18 05:57 Total Cortisol 17.3 mcg/dL () 09/05/18 05:27 Urine Color Marlene (Yellow) 09/03/18 21:51 Urine Turbidity Clear (Clear) 09/03/18 21:51 Urine pH 6.0 (5.0-7.0) 09/03/18 21:51 Ur Specific [place] 1.029 (1.003-1.030) 09/03/18 21:51 Urine Protein >500 mg/dL (Negative) 09/03/18 21:51 Urine Glucose (UA) Neg mg/dL (Negative) 09/03/18 21:51 Urine Ketones Neg mg/dL (Negative) 09/03/18 21:51 Urine Blood Mod (Negative) 09/03/18 21:51 Urine Nitrite Neg (Negative) 09/03/18 21:51 Urine Bilirubin Neg (Negative) 09/03/18 21:51 Urine Urobilinogen < 2.0 mg/dL (<2.0) 09/03/18 21:51 Ur Leukocyte Esterase Neg (Negative) 09/03/18 21:51 Urine WBC (Auto) 4.0 /HPF (0.0-6.0) 09/03/18 21:51 Urine RBC (Auto) < 1.0 /HPF (0.0-6.0) 09/03/18 21:51 Urine Mucus Few /HPF 09/03/18 21:51 Urine Osmolality 637 Mosm/kg 09/05/18 04:00 Urine Creatinine 154.8 mg/dL (0.1-20.0) H 09/04/18 04:00 Protein/Creatinin Ratio 2.78 09/04/18 04:00 Urine Sodium 111 mmol/L 09/05/18 04:00 Urine Potassium 32.10 mmol/L 09/05/18 04:00 Urine Chloride 93.9 mmolL (110-250) L 09/05/18 04:00 Urine Total Protein 431 mg/dL (5-11.8) H 09/04/18 04:00 CSF Appearance Clear 09/10/18 10:00 CSF Color Colorless 09/10/18 10:00 CSF WBC 0 /mm3 (1-10) 09/10/18 10:00 CSF RBC 0 /mm3 (0-0) 09/10/18 10:00 CSF Seg Neutrophils 0 % (0-6) 09/10/18 10:00 CSF Lymphocytes % 0 % (40-80) 09/10/18 10:00 CSF Reactive Lymphs 0 % 09/10/18 10:00 CSF Monocytes % 0 % (15-45) 09/10/18 10:00 CSF Eosinophils % 0 % 09/10/18 10:00 CSF Basophils 0 % 09/10/18 10:00 CSF Pathologist Review C 09/10/18 10:00 CSF Glucose 69 mg/dL 09/10/18 10:00 CSF Total Protein 21 mg/dL 09/10/18 10:00 CSF VDRL Nonreactive (Nonreactive) 09/10/18 10:00 DARVIN Screen Negative (Negative) 09/04/18 16:06 Complement C3 87 mg/dL (82-185) 09/04/18 16:06 Complement C4 25 mg/dL (15-53) 09/04/18 16:06 Lymph Enumerat CD4/CD8 1.38 (0.86-5.00) 09/04/18 16:06 % CD3 Cells 74 % (57-85) 09/04/18 16:06 Absolute CD3 Count 301 cells/uL (840-3060) L 09/04/18 16:06 % CD4 Cells 42 % (30-61) 09/04/18 16:06 Absolute CD4 Count 177 cells/uL (490-1740) L 09/04/18 16:06 % CD8 Cells 31 % (12-42) 09/04/18 16:06 Absolute CD8 Count 129 cells/uL (180-1170) L 09/04/18 16:06 % CD19 Cells 8 % (6-29) 09/04/18 16:06 Absolute CD19 Count 31 cells/uL (110-660) L 09/04/18 16:06 RPR Titer 1:16 09/03/18 21:46 RPR Reactive (Nonreactive) 09/03/18 21:46 T.pallidum Ab (FTA-ABS) Reactive (Nonreactive) H 09/04/18 21:46 Hepatitis A IgM Ab Non-reactive (NonReactive) 09/03/18 21:46 Hep Bs Antigen Non-reactive (Negative) 09/03/18 21:46 Hep B Core IgM Ab Non-reactive (NonReactive) 09/03/18 21:46 Hepatitis C Antibody Reactive (NonReactive) A 09/03/18 21:46 Hepatitis C Genotype 1a 09/05/18 05:27 HIV-1 RNA PCR copies/ml >10.0e6 Copies/mL H 09/04/18 16:06 HIV-1 RNA (PCR) log >7.00 Log cps/mL H 09/04/18 16:06 HIV 1&2 Antibody Rapid Non react (Non React) 09/03/18 21:46 HIV P24 Antigen Non react (Non React) 09/03/18 21:46 Influenza A (Rapid) Negative (Negative) 09/03/18 21:51 Influenza A (RT-PCR) Negative (Negative) 09/04/18 Unknown Influenza B (Rapid) Negative (Negative) 09/03/18 21:51 Influenza B (RT-PCR) Negative (Negative) 09/04/18 Unknown Urine Legionella Ag Not detected (Not Detected) 09/05/18 04:00 Miscellaneous Test Flexitest 1 09/10/18 10:00 Active Medications - Current Medications Current Medications: Generic Name Dose Route Start Last Admin Trade Name Freq PRN Reason Stop Dose Admin Acetaminophen 650 mg 09/06/18 15:27 09/13/18 17:26 Tylenol PO 650 mg Q6H PRN Administration Pain MILD(1-3)/Fever >100.5/[place] Fluconazole 100 mg 09/04/18 10:00 09/15/18 10:52 Diflucan PO 100 mg QDAY MARISABEL Administration Guaifenesin 1,200 mg 09/05/18 22:00 09/15/18 10:52 Mucinex Er PO 1,200 mg BID MARISABEL Administration Hydrophilic Ointment 1 applic 09/06/18 10:21 Vaseline Lip Therapy TP DIRECT PRN Dry Lips Lorazepam 2 mg 09/06/18 13:01 Ativan PO Q1H PRN CIWA-Ar 8-15 Lorazepam 4 mg 09/06/18 13:01 09/09/18 05:03 Ativan IV 4 mg Q1H PRN Administration CIWA-Ar 16-25 Lorazepam 4 mg 09/06/18 13:01 Ativan IV Q15MIN PRN CIWA-Ar >25 Multivitamins 1 each 09/07/18 10:00 09/15/18 10:52 Theragran Tab PO 1 each QDAY MARISABEL Administration Ondansetron HCl 4 mg 09/04/18 00:10 09/11/18 09:12 Zofran IV 4 mg Q4H PRN Administration Nausea And Vomiting Oxycodone/Acetaminophen 1 tab 09/06/18 15:27 09/09/18 04:39 Percocet 5/325 PO 1 tab Q6H PRN Administration Pain, Moderate (4-6) Sodium Chloride 10 ml 09/04/18 10:00 09/15/18 10:53 Sodium Chloride Flush Syringe 10 Ml IV 10 ml BID MARISABEL Administration Sodium Chloride 10 ml 09/04/18 00:10 Sodium Chloride Flush Syringe 10 Ml IV PRN PRN LINE FLUSH Trimethoprim/Sulfamethoxazole 2 each 09/09/18 08:00 09/15/18 06:38 Bactrim Ds PO 2 each Q8HR MARISABEL Administration Nutrition/Malnutrition Assess - Dietary Evaluation Nutrition/Malnutrition Findings: Nutrition Notes Start: 09/10/18 10:54 Freq: Status: Active Protocol: Document 09/14/18 15:41 RM (Rec: 09/14/18 15:47 RM [id number]) Nutrition Notes Initial or Follow up Reassessment Other Pertinent Diagnosis URI, PNA, SIRS, Hep C Current Diet Regular w/Ensure Enlive BID Labs/Tests Reviewed Pertinent Medications Reviewed Height 5 ft 7 in Weight 59.1 kg [place] Body Weight (kg) 67.27 BMI 20.4 Weight change and time frame Current wt obtained from [facility]. Subjective/Other Information Pt stated that his appetite is good but he is not eating the facility meals d/t disliking them. Stated that he is only eating outside food but eats all of it. Stated he is drinking the Ensure Enlive. Burn Absent Trauma Absent #1 Nutrition Diagnosis Inadequate oral intake As Evidenced by Signs and Symptoms pt statement that he is eating all of his outside food and drinking the Ensure Enlive Diagnosis Progress(for reassessment Resolved documentation) Is patient on ventilator? No Is Patient Ambulatory and/or Out of Bed Yes REE-([facility]-ambulatory/OOB) [ [id number] [id number]] Calculation Used for Recommendations [facility] Additional Notes pro: 54-67g/day (0.8-1g/kg) kcal: 1mL/kcal Nutrition Intervention Change Diet Order: Continue current Add Supplement/Snack (indicate name/kcal Ensure enlive strawberry BID /protein ) Provides kCal: 700 Provides Protein (gm) 40 Goal #1 Meet at least 75% of kcal and pro needs via PO/ONS intake Follow-Up By: 09/21/18 Additional Comments Follow for PO and ONS intakes
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
[2018-09-16 01:28] LABS: Basophils % (Auto) 1.8 % (0.0-1.8); Eosinophils % (Auto) 0.1 % (0.0-4.3); Hematocrit 34.5 % (35.5-45.6); Hemoglobin 12.3 gm/dl (11.8-15.2); Lymphocytes # (Auto) 1.2 K/mm3 (1.2-5.4); Lymphocytes % (Auto) 42.9 % (13.4-35.0); Mean Corpuscular HGB Conc 36 % (32-34); Mean Corpuscular Volume 84 fl (84-94); Monocytes # (Auto) 0.3 K/mm3 (0.0-0.8); Monocytes % (Auto) 9.1 % (0.0-7.3); Platelet Count 208 K/mm3 (140-440); Red Blood Count 4.12 M/mm3 (3.65-5.03); Red Cell Distribution Width 12.7 % (13.2-15.2)
[2018-09-16] MEDS: BACTRIM DS PO SCH (05:13)
[2018-09-16] MEDS ORDERED: BENADRYL PO PRN (08:30)
--- NOTE | 2018-09-16 08:46 | Progress Note ---
Assessment and Plan Cultures: 09/03/2018 blood culture: No growth 09/04/2018 cryptococcal antigen: Negative 09/10/2018 blood culture: No growth 09/04/2018 CSF cryptococcal antigen: Negative 09/11/2018 blood culture: No growth 09/14/2018 Urine culture: No growth Assessment: 32 y/o man with no medical history except for tobacco and EOTH abuse, MSM; admitted on 09/03/2018 due to 2-week history of cough with yellow sputum production and chest pressure upon coughing 1) SIRS v/s sepsis: Improved, no fevers in >48 hours.. Etiology unclear. DDx: CAP, HIV with acute retroviral syndrome, less llkely , PJP, tick borne. - Blood culture 09/03/2018 no growth today. - UA neg - HCV serology positive. - HBV serology negative. - HIV rapid negative and p24 Ag negative - Influenza PCR negative. - CXR neg. - CTA showed no evidence of PE, bibasilar subsegmental atelectasis greater on the left than the right and diffuse fatty infiltration of the liver - LDH - 515 - CRP - .30 -Urine Legionella AG - negative -DARVIN negative -C3/C4 negative - CSF VDRL - nonreactive -CMV DNA PCR - <200 2) HIV with acute retroviral syndrome: VL >10 million and CD4 177. Explains the high viral load and negative HIV rapid test but positive HIV RNA PCR. Pneumonia appears to be worsening on follow up CT. Hence consult pulmonary to eval for bronchoscopy. PCP pneumonia is generally not associated with acute retroviral syndrome and more seen with AIDS. 3) Recent pneumonia: seen at [facility] ED on 08/15/2018 visit showed WBC 17K, AST 213/ALT 313, bili 1.4. Blood cultures negative. CXR showed lingular and LLL pneumonia. treated with doxycycline for 10 days. 4) Elevated LFTs ? from HCV +/- cute antiretroviral syndrome +/- acute mononucleosis +/- acute ETOh hepatitis +/- doubt leptospirosis or autoimmune. 5) History of syphilis 6) Neutropenia and throbocytopenia: improved 7) Oral candidiasis; Resolved 8) Cough ? CXR neg. CT neg for consolidation, if AIDS ? PJP. -Repeat CT - Marked worsening of the bilateral diffuse primarily interstitial infiltrates with patchy airspace disease in the lower lobes. Interval development of moderate layering bilateral pleural effusions and significant subjacent consolidation. Pulmonary finds no clear advantage for bronchoscopy at this point, clinically improving. 9) New onset Epistaxis: Resolved. Sinus CT showed no nasal vault, nasal passage, or sinus disease identified. Recommendations: -f/u aspergillus/fungitell for invasive fungal etiology. -Continue bactrim DS 2 tabs TID D6 of 21 - f/u HIV genotype to determine HAART regimine - f/u HIV-4th generation test - Clinically stable, no fevers in > 48 hours , can discharge on Bactrim DS 2 tabs TID for total 21 days, then prophylaxis Bactrim 1 DS PO once daily for 30 days -prescriptions on the chart -Will need to follow up with [facility] or [facility] to initiate HIV therapy. -Discussion with case management for family meeting to discuss options prior to discharge [facility] M: [phone] O:[phone] Subjective Date of service: 09/16/18 Principal diagnosis: Pneumomnia, acute HIV, Fever, Abnl LFTs Interval history: Patient seen and examined. Denied generalized pain, weakness or SOB. Discharge instructions reviewed. Nurses notes, labs and reports reviewed discussed with patient and mother. Objective - Exam Narrative Exam: Constitutional: Awake. Alert. No acute distress Head, Ears, Nose: Normocephalic, atraumatic. External ears, nose normal Eyes: Conjunctivae/corneas clear. No icterus. No ptosis. Neck: Supple, no meningeal signs Oral: dentition fair, no thrush Cardiovascular: S1, S2 normal. Respiratory: Good air entry, GI: Soft, non-tender; bowel sounds normal. No peritoneal signs Musculoskeletal: No pedal edema, no cyanosis. Skin: No rash or abscess Hem/Lymphatic: No palpable cervical or supraclavicular nodes. No lymphangitis Psych: affect : good Neurological: Alert, awake, oriented. - Constitutional Vitals: Vital Signs Temp Pulse Resp BP Pulse Ox 98.1 F 92 H 20 96/56 93 09/16/18 04:36 09/16/18 04:36 09/16/18 04:36 09/16/18 04:36 09/16/18 04:36 Temperature -Last 24 Hours Temperature 98.1 F Temperature 98.2 F Temperature 98.4 F Temperature 98.5 F - Labs CBC & Chem 7: 09/16/18 00:29 09/16/18 10:01 Labs: Abnormal lab results 09/16/18 Range/Units 00:29 WBC 2.8 L (4.5-11.0) K/mm3 Hct 34.5 L (35.5-45.6) % MCHC 36 H (32-34) % RDW 12.7 L (13.2-15.2) % Lymph % (Auto) 42.9 H (13.4-35.0) % Hood % (Auto) 9.1 H (0.0-7.3) % Seg Neutrophils # 1.3 L (1.8-7.7) K/mm3
--- NOTE | 2018-09-16 09:24 | Progress Note ---
Assessment and Plan Bilateral pulmonary infiltrates with pleural effusions consistent with pneumonia. This in the context of HIV. Partial treated CMP, opportunistic pneumonia and non-pneumonic process are considerations. Bilateral pleural effusions. Normal BNP , doubt HIV related cardiomyopathy or pulmonary hypertension at this point HIV/AIDS. Apparently pending further serologically investigation Chronic smoker Recommendations Complete antibiotics I agree with completing Bactrim treatment as noted by ID Monitor for clinical resolution as outpatient Outpatient HIV retroviral therapy and monitor response Follow-up chest x-rays on the next 6-8 weeks to document resolution of infiltrates and effusions Discussed with patient in detail. All questions answered We'll sign off Subjective Date of service: 09/16/18 Principal diagnosis: Pneumomnia, acute HIV, Fever, Abnl LFTs Interval history: No events overnight. Afebrile. No cough or shortness of breath Objective Vital Signs - 12hr 09/15/18 09/15/18 09/16/18 21:58 22:45 04:36 Temperature 98.2 F 98.1 F Pulse Rate 94 H 92 H Respiratory 18 20 Rate Blood Pressure 105/59 96/56 O2 Sat by Pulse 93 95 93 Oximetry 09/16/18 09:15 Temperature Pulse Rate Respiratory Rate Blood Pressure O2 Sat by Pulse 96 Oximetry Constitutional: no acute distress Eyes: non-icteric ENT: oropharynx moist Neck: no JVD Ascultation: Bilateral: clear Cardiovascular: regular rate and rhythm Gastrointestinal: normoactive bowel sounds, non-distended Integumentary: normal Extremities: no cyanosis Neurologic: normal mental status, non-focal exam Psychiatric: mood appropriate, affect normal CBC and BMP: 09/16/18 00:29 09/14/18 13:30 ABG, PT/INR, D-dimer: PT/INR, D-dimer PT 12.4 Sec. (12.2-14.9) 09/06/18 16:49 INR 0.87 (0.87-1.13) 09/06/18 16:49 Abnormal lab findings: Abnormal Labs 09/03/18 09/03/18 09/03/18 19:44 19:44 19:44 WBC 3.7 L Hgb Hct MCV MCHC 36 H RDW Plt Count 79 L Lymph % (Auto) [place] % (Auto) Lymph # Seg Neuts % (Manual) Lymphocytes % (Manual) 41.0 H Monocytes % (Manual) 8.0 H Seg Neutrophils # Seg Neutrophils # Man Abs Lymphs (Manual) Lymphocytes # (Manual) Sodium 123 L Potassium Chloride 83.9 L Carbon Dioxide BUN Creatinine Glucose 104 H Lactic Acid 3.20 H* Calcium Direct Bilirubin AST 219 H ALT 74 H Lactate Dehydrogenase Total Creatine Kinase Total Protein Albumin 3.4 L Free T4 Urine Creatinine Urine Chloride Urine Total Protein Absolute CD3 Count Absolute CD4 Count Absolute CD8 Count Absolute CD19 Count T.pallidum Ab (FTA-ABS) Hepatitis C Antibody HIV-1 RNA PCR copies/ml HIV-1 RNA (PCR) log 09/03/18 09/03/18 09/04/18 20:57 21:46 04:00 WBC Hgb Hct MCV MCHC RDW Plt Count Lymph % (Auto) [place] % (Auto) Lymph # Seg Neuts % (Manual) Lymphocytes % (Manual) Monocytes % (Manual) Seg Neutrophils # Seg Neutrophils # Man Abs Lymphs (Manual) Lymphocytes # (Manual) Sodium Potassium Chloride Carbon Dioxide BUN Creatinine Glucose Lactic Acid 3.50 H* Calcium Direct Bilirubin AST ALT Lactate Dehydrogenase Total Creatine Kinase Total Protein Albumin Free T4 Urine Creatinine 154.8 H Urine Chloride Urine Total Protein 431 H Absolute CD3 Count Absolute CD4 Count Absolute CD8 Count Absolute CD19 Count T.pallidum Ab (FTA-ABS) Hepatitis C Antibody Reactive A HIV-1 RNA PCR copies/ml HIV-1 RNA (PCR) log 09/04/18 09/04/18 09/04/18 09:56 09:56 09:56 WBC 1.9 L* Hgb Hct MCV MCHC 36 H RDW 12.9 L Plt Count 71 L Lymph % (Auto) [place] % (Auto) Lymph # Seg Neuts % (Manual) 90.0 H Lymphocytes % (Manual) 7.0 L Monocytes % (Manual) Seg Neutrophils # Seg Neutrophils # Man 1.7 L Abs Lymphs (Manual) 481 L Lymphocytes # (Manual) 0.1 L Sodium Potassium Chloride Carbon Dioxide BUN Creatinine Glucose Lactic Acid Calcium Direct Bilirubin AST ALT Lactate Dehydrogenase Total Creatine Kinase Total Protein Albumin Free T4 Urine Creatinine Urine Chloride Urine Total Protein Absolute CD3 Count 328 L Absolute CD4 Count 169 L Absolute CD8 Count 153 L Absolute CD19 Count 30 L T.pallidum Ab (FTA-ABS) Hepatitis C Antibody HIV-1 RNA PCR copies/ml >10.0e6 H HIV-1 RNA (PCR) log >7.00 H 0309/04/18 09/04/18 09:56 16:06 16:06 WBC Hgb Hct MCV MCHC RDW Plt Count Lymph % (Auto) [place] % (Auto) Lymph # Seg Neuts % (Manual) Lymphocytes % (Manual) Monocytes % (Manual) Seg Neutrophils # Seg Neutrophils # Man Abs Lymphs (Manual) 405 L Lymphocytes # (Manual) Sodium 125 L Potassium Chloride 91.1 L Carbon Dioxide BUN Creatinine Glucose Lactic Acid Calcium 7.6 L Direct Bilirubin 0.3 H AST 162 H ALT Lactate Dehydrogenase Total Creatine Kinase Total Protein 5.4 L D Albumin 2.8 L Free T4 Urine Creatinine Urine Chloride Urine Total Protein Absolute CD3 Count 301 L Absolute CD4 Count 177 L Absolute CD8 Count 129 L Absolute CD19 Count 31 L T.pallidum Ab (FTA-ABS) Hepatitis C Antibody HIV-1 RNA PCR copies/ml >10.0e6 H HIV-1 RNA (PCR) log >7.00 H 09/04/18 09/05/18 09/05/18 21:46 04:00 05:27 WBC 4.0 L Hgb Hct MCV MCHC 36 H RDW Plt Count 68 L Lymph % (Auto) [place] % (Auto) Lymph # 1.1 L Seg Neuts % (Manual) Lymphocytes % (Manual) Monocytes % (Manual) Seg Neutrophils # Seg Neutrophils # Man Abs Lymphs (Manual) Lymphocytes # (Manual) Sodium Potassium Chloride Carbon Dioxide BUN Creatinine Glucose Lactic Acid Calcium Direct Bilirubin AST ALT Lactate Dehydrogenase Total Creatine Kinase Total Protein Albumin Free T4 Urine Creatinine Urine Chloride 93.9 L Urine Total Protein Absolute CD3 Count Absolute CD4 Count Absolute CD8 Count Absolute CD19 Count T.pallidum Ab (FTA-ABS) Reactive H Hepatitis C Antibody HIV-1 RNA PCR copies/ml HIV-1 RNA (PCR) log 09/05/18 09/05/18 09/06/18 05:27 05:27 07:11 WBC Hgb Hct MCV MCHC RDW Plt Count Lymph % (Auto) [place] % (Auto) Lymph # Seg Neuts % (Manual) Lymphocytes % (Manual) Monocytes % (Manual) Seg Neutrophils # Seg Neutrophils # Man Abs Lymphs (Manual) Lymphocytes # (Manual) Sodium 126 L Potassium Chloride 92.8 L Carbon Dioxide 20 L BUN 8 L Creatinine Glucose Lactic Acid Calcium 7.8 L Direct Bilirubin AST 172 H ALT Lactate Dehydrogenase 515 H Total Creatine Kinase Total Protein 5.3 L Albumin 2.7 L Free T4 0.66 L Urine Creatinine Urine Chloride Urine Total Protein Absolute CD3 Count Absolute CD4 Count Absolute CD8 Count Absolute CD19 Count T.pallidum Ab (FTA-ABS) Hepatitis C Antibody HIV-1 RNA PCR copies/ml HIV-1 RNA (PCR) log 09/06/18 09/07/18 09/07/18 16:49 04:32 04:32 WBC Hgb Hct MCV MCHC RDW Plt Count 79 L Lymph % (Auto) [place] % (Auto) Lymph # Seg Neuts % (Manual) Lymphocytes % (Manual) Monocytes % (Manual) Seg Neutrophils # Seg Neutrophils # Man Abs Lymphs (Manual) Lymphocytes # (Manual) Sodium 130 L 131 L Potassium Chloride 97.7 L Carbon Dioxide 21 L BUN 6 L 6 L Creatinine 0.7 L 0.7 L Glucose 109 H 112 H Lactic Acid Calcium 8.0 L 8.1 L Direct Bilirubin AST ALT Lactate Dehydrogenase Total Creatine Kinase Total Protein Albumin Free T4 Urine Creatinine Urine Chloride Urine Total Protein Absolute CD3 Count Absolute CD4 Count Absolute CD8 Count Absolute CD19 Count T.pallidum Ab (FTA-ABS) Hepatitis C Antibody HIV-1 RNA PCR copies/ml HIV-1 RNA (PCR) log 09/07/18 09/07/18 09/08/18 04:32 11:22 06:18 WBC 3.5 L Hgb Hct 35.4 L MCV MCHC 36 H RDW 13.1 L Plt Count 105 L Lymph % (Auto) [place] % (Auto) 14.7 H Lymph # 0.6 L Seg Neuts % (Manual) Lymphocytes % (Manual) Monocytes % (Manual) Seg Neutrophils # Seg Neutrophils # Man Abs Lymphs (Manual) Lymphocytes # (Manual) Sodium 130 L 125 L Potassium Chloride Carbon Dioxide 21 L 19 L BUN 6 L 5 L Creatinine 0.7 L 0.5 L Glucose 111 H Lactic Acid Calcium 8.0 L 7.6 L Direct Bilirubin AST 131 H ALT Lactate Dehydrogenase Total Creatine Kinase 1459 H Total Protein 5.3 L Albumin 2.4 L Free T4 Urine Creatinine Urine Chloride Urine Total Protein Absolute CD3 Count Absolute CD4 Count Absolute CD8 Count Absolute CD19 Count T.pallidum Ab (FTA-ABS) Hepatitis C Antibody HIV-1 RNA PCR copies/ml HIV-1 RNA (PCR) log 09/08/18 09/09/18 09/09/18 06:18 04:54 04:54 WBC Hgb Hct 34.9 L MCV MCHC RDW Plt Count Lymph % (Auto) [place] % (Auto) Lymph # Seg Neuts % (Manual) Lymphocytes % (Manual) Monocytes % (Manual) Seg Neutrophils # Seg Neutrophils # Man Abs Lymphs (Manual) Lymphocytes # (Manual) Sodium Potassium Chloride Carbon Dioxide BUN 6 L Creatinine 0.3 L Glucose 110 H Lactic Acid Calcium 8.2 L Direct Bilirubin AST ALT Lactate Dehydrogenase Total Creatine Kinase 901 H Total Protein Albumin Free T4 Urine Creatinine Urine Chloride Urine Total Protein Absolute CD3 Count Absolute CD4 Count Absolute CD8 Count Absolute CD19 Count T.pallidum Ab (FTA-ABS) Hepatitis C Antibody HIV-1 RNA PCR copies/ml HIV-1 RNA (PCR) log 09/10/18 09/10/18 09/11/18 02:10 02:10 05:18 WBC Hgb 11.6 L Hct 32.0 L MCV MCHC RDW Plt Count Lymph % (Auto) [place] % (Auto) Lymph # Seg Neuts % (Manual) Lymphocytes % (Manual) Monocytes % (Manual) Seg Neutrophils # Seg Neutrophils # Man Abs Lymphs (Manual) Lymphocytes # (Manual) Sodium 133 L 132 L Potassium 3.5 L Chloride 96.9 L Carbon Dioxide 21 L BUN 4 L 7 L Creatinine Glucose 126 H Lactic Acid Calcium 7.9 L 8.0 L Direct Bilirubin AST ALT Lactate Dehydrogenase Total Creatine Kinase Total Protein Albumin Free T4 Urine Creatinine Urine Chloride Urine Total Protein Absolute CD3 Count Absolute CD4 Count Absolute CD8 Count Absolute CD19 Count T.pallidum Ab (FTA-ABS) Hepatitis C Antibody HIV-1 RNA PCR copies/ml HIV-1 RNA (PCR) log 09/11/18 09/12/18 09/12/18 09:29 05:53 05:53 WBC Hgb 11.7 L Hct 33.8 L 31.7 L MCV 83 L MCHC 36 H RDW 12.4 L Plt Count Lymph % (Auto) [place] % (Auto) 12.3 H Lymph # 0.9 L Seg Neuts % (Manual) Lymphocytes % (Manual) Monocytes % (Manual) Seg Neutrophils # Seg Neutrophils # Man Abs Lymphs (Manual) Lymphocytes # (Manual) Sodium 131 L Potassium Chloride Carbon Dioxide 20 L BUN 7 L Creatinine 0.7 L Glucose Lactic Acid Calcium 8.1 L Direct Bilirubin AST ALT Lactate Dehydrogenase Total Creatine Kinase Total Protein Albumin Free T4 Urine Creatinine Urine Chloride Urine Total Protein Absolute CD3 Count Absolute CD4 Count Absolute CD8 Count Absolute CD19 Count T.pallidum Ab (FTA-ABS) Hepatitis C Antibody HIV-1 RNA PCR copies/ml HIV-1 RNA (PCR) log 09/13/18 09/14/18 09/14/18 05:58 06:32 13:30 WBC Hgb Hct 33.4 L MCV MCHC RDW Plt Count Lymph % (Auto) [place] % (Auto) Lymph # Seg Neuts % (Manual) Lymphocytes % (Manual) Monocytes % (Manual) Seg Neutrophils # Seg Neutrophils # Man Abs Lymphs (Manual) Lymphocytes # (Manual) Sodium 130 L 129 L Potassium Chloride 95.4 L 93.3 L Carbon Dioxide 21 L BUN 7 L 8 L Creatinine 0.7 L Glucose 107 H Lactic Acid Calcium 8.1 L 8.3 L Direct Bilirubin AST ALT Lactate Dehydrogenase Total Creatine Kinase Total Protein Albumin Free T4 Urine Creatinine Urine Chloride Urine Total Protein Absolute CD3 Count Absolute CD4 Count Absolute CD8 Count Absolute CD19 Count T.pallidum Ab (FTA-ABS) Hepatitis C Antibody HIV-1 RNA PCR copies/ml HIV-1 RNA (PCR) log 09/16/18 00:29 WBC 2.8 L Hgb Hct 34.5 L MCV MCHC 36 H RDW 12.7 L Plt Count Lymph % (Auto) 42.9 H [place] % (Auto) 9.1 H Lymph # Seg Neuts % (Manual) Lymphocytes % (Manual) Monocytes % (Manual) Seg Neutrophils # 1.3 L Seg Neutrophils # Man Abs Lymphs (Manual) Lymphocytes # (Manual) Sodium Potassium Chloride Carbon Dioxide BUN Creatinine Glucose Lactic Acid Calcium Direct Bilirubin AST ALT Lactate Dehydrogenase Total Creatine Kinase Total Protein Albumin Free T4 Urine Creatinine Urine Chloride Urine Total Protein Absolute CD3 Count Absolute CD4 Count Absolute CD8 Count Absolute CD19 Count T.pallidum Ab (FTA-ABS) Hepatitis C Antibody HIV-1 RNA PCR copies/ml HIV-1 RNA (PCR) log Allied health notes reviewed: nursing
--- NOTE | 2018-09-16 09:45 | Progress Note ---
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 s/p dose of tolvaptan yesterday. Will assess his BMP levels this morning. (2) Proteinuria Current Visit: Yes Status: Acute Plan to address problem: Unclear etiology but it is in the setting of microscopic hematuria, a positive hep C antibody as well as hypoalbuminemia. UPC of 2.78 g/g creatinine.Tested positive for HIV 1 with viral load > 10^6. Cannot rule out possibility of glomerular etiology such as MPGN in the setting of Hep C or HIV. (3) Thrombocytopenia Current Visit: Yes Status: Acute Plan to address problem: Labs are stable, We will monitor closely. (4) Transaminitis Current Visit: Yes Status: Acute Plan to address problem: Abdominal ultrasound was normal. We'll also follow-up on further hep C serologies. Subjective Date of service: 09/16/18 Principal diagnosis: Pneumomnia, acute HIV, Fever, Abnl LFTs Interval history: No acute issues overnight. no labs this am. s/p tolvapatan dose yesterday. Objective - Vital Signs Vital signs: Vital Signs - 12hr 09/15/18 09/15/18 09/16/18 21:58 22:45 04:36 Temperature 98.2 F 98.1 F Pulse Rate 94 H 92 H Respiratory 18 20 Rate Blood Pressure 105/59 96/56 O2 Sat by Pulse 93 95 93 Oximetry 09/16/18 09:15 Temperature Pulse Rate Respiratory Rate Blood Pressure O2 Sat by Pulse 96 Oximetry - General Appearance General appearance: well-developed, well-nourished, appears stated age EENT: ATNC, PERRL Neck: no JVD, no thyromegaly Respiratory: Present: Clear to Ascultation Cardiology: regular, S1S2 Gastrointestinal: normal, normoactive bowel sounds Integumentary: no rash, warm and dry Neurologic: no focal deficit, no asterixis, alert and oriented x3 Psychiatric: mood/affect appropriate, cooperative - Lab 09/16/18 00:29 09/14/18 13:30 Most recent lab results Calcium 8.3 mg/dL (8.4-10.2) L 09/14/18 13:30 Urine Creatinine 154.8 mg/dL (0.1-20.0) H 09/04/18 04:00 Urine Sodium 111 mmol/L 09/05/18 04:00 Urine Total Protein 431 mg/dL (5-11.8) H 09/04/18 04:00 - Allied health notes Allied health notes reviewed: nursing Medications & Allergies - Medications Allergies/Adverse Reactions: Allergies No Known Allergies Allergy (Unverified 06/07/13 12:19) Home Medications: Home Medications Medication Instructions Recorded Confirmed Last Taken Type Sulfamethoxazole/Trimethoprim 1 each PO QDAY 30 Days #30 tablet 09/16/18 Unknown Rx [Bactrim DS TAB] Sulfamethoxazole/Trimethoprim 2 each PO TID 15 Days #90 tablet 09/16/18 Unknown Rx [Bactrim DS TAB] Active Medications: Generic Name Dose Route Start Last Admin Trade Name Freq PRN Reason Stop Dose Admin Acetaminophen 650 mg 09/06/18 15:27 09/13/18 17:26 Tylenol PO 650 mg Q6H PRN Administration Pain MILD(1-3)/Fever >100.5/[place] Diphenhydramine HCl 25 mg 09/16/18 08:30 Benadryl PO Q6H PRN Itching Guaifenesin 1,200 mg 09/05/18 22:00 09/15/18 22:10 Mucinex Er PO 1,200 mg BID MARISABEL Administration Hydrophilic Ointment 1 applic 09/06/18 10:21 Vaseline Lip Therapy TP DIRECT PRN Dry Lips Lorazepam 2 mg 09/06/18 13:01 Ativan PO Q1H PRN CIWA-Ar 8-15 Lorazepam 4 mg 09/06/18 13:01 09/09/18 05:03 Ativan IV 4 mg Q1H PRN Administration CIWA-Ar 16-25 Lorazepam 4 mg 09/06/18 13:01 Ativan IV Q15MIN PRN CIWA-Ar >25 Multivitamins 1 each 09/07/18 10:00 09/15/18 10:52 Theragran Tab PO 1 each QDAY MARISABEL Administration Ondansetron HCl 4 mg 09/04/18 00:10 09/11/18 09:12 Zofran IV 4 mg Q4H PRN Administration Nausea And Vomiting Oxycodone/Acetaminophen 1 tab 09/06/18 15:27 09/09/18 04:39 Percocet 5/325 PO 1 tab Q6H PRN Administration Pain, Moderate (4-6) Sodium Chloride 10 ml 09/04/18 10:00 09/15/18 22:11 Sodium Chloride Flush Syringe 10 Ml IV 10 ml BID MARISABEL Administration Sodium Chloride 10 ml 09/04/18 00:10 Sodium Chloride Flush Syringe 10 Ml IV PRN PRN LINE FLUSH Trimethoprim/Sulfamethoxazole 2 each 09/09/18 08:00 09/16/18 05:13 Bactrim Ds PO 2 each Q8HR MARISABEL Administration
[2018-09-16 10:51] LABS: BUN/Creatinine Ratio 11; Blood Urea Nitrogen 14 mg/dL (9-20); Calcium 8.3 mg/dL (8.4-10.2); Hemolysis Index 25
--- NOTE | 2018-09-16 11:16 | Discharge Summary ---
Providers - Providers Date of Admission: 09/03/18 23:49 Attending physician: ELIZABETH MOJICA MD 09/04/18 00:10 Consult to Physician [CONS] Routine Comment: Consulting Provider: HERNÁN GREER Physician Instructions: Reason For Exam: sirs 09/04/18 09:52 Consult to Physician [CONS] Routine Comment: Consulting Provider: JARETT LYNN Physician Instructions: Reason For Exam: hyponatremia, hypochloremia 09/04/18 11:21 Consult to Physician [CONS] Routine Comment: Consulting Provider: CAMERON LOPEZ Physician Instructions: Reason For Exam: hep c 09/14/18 16:25 Consult to Physician [CONS] Urgent Comment: Consulting Provider: REESE BONDS Physician Instructions: Reason For Exam: Bronch/Bal for worsening CT chest [facility] Condition: Good Hospital course: 32-year-old man who presents to the hospital with fever. He was treated at [facility] 2 weeks ago for community acquired pneumonia and was treated with antibiotics, the patient reports compliance of those antibiotics CT amgio chest; no evidence of PE diffuse fatty infiltration of the liver Labs, UA is negative for UTI, hepatitis serology is only positive for positive hep C antibody, rapid HIV is negative, rapid influenza is negative Diagnoses ID acute HIV viral syndrome Pneumocystis pneumonia Hep C Sepsis Fever hx of syphillis, earlier this year, rx with PCN at [facility] Acute metabolic encephalopathy GI Transaminitis Severe hyponatremia FEN-renal Hypochloremia Hematology Leukopenia and thrombocytopenia; most likely bone marrow suppression due to sepsis Tobacco abuse Plan - He was treated with antibiotics while in hospital per ID recommendations, sp LP which was crypt neg -pna improving, pulmonology note appreciated, no obvious benefit for bronch at this time, he is improving, he is being discharged on oral antibiotics for pneumocystis pneumonia, and follow-up as an outpatient -HIV RNA is positive with high viral load of 10^6, cd4 count 169, T.Palladium Ab positive, patient had already been treated at outside hospital -fup hep C viral RNA, quantitative, hep C genotype was 1a, LFTs improved. He will follow-up at [place] for treatments of hepatitis C and HIV -WBC and plt count improved, the patient likely suffered bone marrow suppression due to sepsis, which have now improved -s/p isotonic IVF, sp tolvaptan on 09/08, Nephrology consult, hyponatremia/hypochloremia likely due to hypovolemia, hyposolutemia and SIADH, improved -Patient was counseled greater than 10 minutes about tobacco cessation, he was counseled greater than 60 minutes about lifestyle modification which included safe sex practices Disposition: DC-01 TO HOME OR SELFCARE Time spent for discharge: 35 minutes Core Measure Documentation - Palliative Care Palliative Care/ Comfort Measures: Not Applicable - Core Measures Any of the following diagnoses?: none Exam - Constitutional Vitals: Temp Pulse Resp BP Pulse Ox 98.1 F 92 H 20 96/56 96 09/16/18 04:36 09/16/18 04:36 09/16/18 04:36 09/16/18 04:36 09/16/18 09:15 General appearance: Present: no acute distress, well-nourished - EENT Eyes: Present: PERRL ENT: hearing intact, clear oral mucosa - Neck Neck: Present: supple, normal ROM - Respiratory Respiratory effort: normal Respiratory: bilateral: CTA - Cardiovascular Heart Sounds: Present: S1 & S2. Absent: rub, click - Extremities Extremities: pulses symmetrical, No edema Peripheral Pulses: within normal limits - Abdominal General gastrointestinal: Present: soft, non-tender, non-distended, normal bowel sounds Male genitourinary: Present: normal - Integumentary Integumentary: Present: clear, warm, dry - Musculoskeletal Musculoskeletal: gait normal, strength equal bilaterally - Psychiatric Psychiatric: appropriate mood/affect, intact judgment & insight - Neurologic Neurologic: CNII-XII intact, moves all extremities Plan Follow up with: COLLIN VILLAR MD [Primary Care Provider] - 3-5 Days Prescriptions: Sulfamethoxazole/Trimethoprim [Bactrim DS TAB] 2 each PO TID 15 Days #90 tablet Sulfamethoxazole/Trimethoprim [Bactrim DS TAB] 1 each PO QDAY 30 Days #30 tablet diphenhydrAMINE [Benadryl CAP] 25 mg PO Q6H PRN #60 capsule PRN Reason: Itching Multivitamin Tab [Multiple Vitamin TAB (Theragran)] 1 each PO QDAY #30 tablet
[2018-09-16] MEDS: MUCINEX ER PO SCH (11:27)
[2018-09-16] MEDS: THERAGRAN Tab PO SCH (11:28)
[2018-09-16] MEDS: SODIUM CHLORIDE FLUSH SYRINGE 10 ML IV SCH (11:29)
[2018-09-16 12:41] VITALS: BP 104/68
== END 2018-09-16 14:00 | disposition home or self-care (01) | DRG 871 ==
LOC: ED 18:56 → 3A 23:49
PROVIDERS: ADMIT Internal Medicine; ATTEND Internal Medicine
PROC: 009U3ZX Drainage of Spinal Canal, Percutaneous Approach, Diagnostic (ICD-10-PCS; principal; 2018-09-10)
PROC: B01B1ZZ Fluoroscopy of Spinal Cord using Low Osmolar Contrast (ICD-10-PCS; 2018-09-10)
DX: A41.9 Sepsis, unspecified organism (principal); J18.9 Pneumonia, unspecified organism; G93.41 Metabolic encephalopathy; E87.1 Hypo-osmolality and hyponatremia; J90 Pleural effusion, not elsewhere classified; R74.0 Nonspecific elevation of levels of transaminase and lactic acid dehydrogenase [LDH]; B19.20 Unspecified viral hepatitis C without hepatic coma; E87.8 Other disorders of electrolyte and fluid balance, not elsewhere classified; Z87.891 Personal history of nicotine dependence; D69.6 Thrombocytopenia, unspecified; Z82.49 Family history of ischemic heart disease and other diseases of the circulatory system; R04.0 Epistaxis; K76.0 Fatty (change of) liver, not elsewhere classified
CPT/HCPCS: 36415; 62270; 70450; 70486; 71045; 71046; 71275; 76700; 77003; 80048; 80053; 80074; 80076; 81001; 82024; 82140; 82390; 82436; 82533; 82550; 82570; 82947; 83615; 83880; 83930; 83935; 84133; 84156; 84160; 84300; 84436; 84439; 84443; 85007; 85014; 85018; 85025; 85049; 85610; 85730; 86038; 86140; 86160; 86403; 86592; 86593; 86780; 87040; 87086; 87400; 87449; 87497; 87517; 87536; 87806; 87902; 89051; 94760; 96365; 99406; G0378; 87502; J0696; J1650; J1956; J2060; J2405; J7030; J7050; Q9967